=== PATIENT | male | born 1960 | race Caucasian/White ===

== ENCOUNTER 2017-02-04 10:36 | Emergency (ER) | payer OTHER ==
[~2017-02-04] VITALS: Ht 172.7 cm; Wt 102.1 kg
--- NOTE | 2017-02-04 11:09 | EKG ---
[facility] [address] [place] [address] Test Date: 2017-02-04 Test Time: 11:01:00 Pat Name: FAHAD ZEE Department: Room: Gender: M Supervisor General: : 1960 Requested By: SELWYN WAYNE Order Number: [id number] Reading MD: Paul Montez Measurements Intervals [place] Rate: 90 P: 7 IA: 180 QRS: -17 QRSD: 94 T: -2 QT: 364 QTc: 449 Interpretive Statements SINUS RHYTHM LEFTWARD AXIS CONSIDER LEFT VENTRICULAR HYPERTROPHY T ABNORMALITY IN INFERIOR LEADS RI6.01 Unconfirmed report No previous ECG available for comparison Electronically Signed On 02-09-2017 9:30:24 CDT by Paul Montez
[2017-02-04 11:57] LABS: BASO % 0 % (0-3); EOS % 1 % (0-3); HEMATOCRIT 43.2 % (39.0-53.0); HEMOGLOBIN 15.1 g/dL (13.0-17.5); LYMPH % 31 % (24-48); MEAN CORPUSCULAR HEMOGLOBIN 32 pg (25-35); MEAN CORPUSCULAR HGB CONC 35 g/dL (31-37); MEAN CORPUSCULAR VOLUME 93 fL (79-100); MONO % 10 % (0-9); NEUT % 58 % (31-73); PLATELET COUNT 165 x10^3/uL (140-400); RED BLOOD COUNT 4.66 x10^6/uL (4.30-5.70); RED CELL DISTRIBUTION WIDTH 14.1 % (11.5-14.5); WHITE BLOOD COUNT 6.6 x10^3/uL (4.0-11.0)
[2017-02-04 12:06] LABS: CALCIUM 9.1 mg/dL (8.5-10.1); CREATININE 0.8 mg/dL (0.7-1.3); GFR 100.7; POTASSIUM 3.9 mmol/L (3.5-5.1)
[2017-02-04 12:07] LABS: PROTHROMBIN TIME PATIENT 12.9 SEC (11.7-14.0)
[2017-02-04] MEDS ORDERED: CONTRAST GIVEN MC PRN (12:15)
[2017-02-04] MEDS ORDERED: IOHEXOL 350 MG/ML 100 ML VIAL. IV ONE (12:30)
--- NOTE | 2017-02-04 13:15 | RAD ---
Indication ascending thoracic aortic aneurysm. Axial contrast imaging through the chest, abdomen and pelvis was performed. 90 cc of Omnipaque 350 was administered. MIP images were generated and reviewed. Volume rendered images were also generated and reviewed. No prior CT imaging is available. The ascending thoracic aorta is dilated. It measures approximately 5.2 cm in greatest dimension. There is slight dilatation of the arch. It is dilated maximally to approximately 3 cm. The descending thoracic aorta is unremarkable. There is no evidence of dissection. No acute finding is seen associated with the thoracic aorta. The abdominal aorta appears unremarkable. There is no significant hilar or mediastinal adenopathy. There is no acute parenchymal infiltrate. There is a 3 mm nodule in the right middle lobe, image 60 series 3. An additional 2 mm nodule is also seen in the right middle lobe image 57. Follow-up imaging along the lines of the Fleischner criteria should be considered. The liver and spleen appear unremarkable and gallbladder appears grossly normal. No pancreatic adrenal or renal anomalies are seen. Acute finding in the abdomen is not apparent. No acute finding is seen in the pelvis. The bladder is mildly distended IMPRESSION: Dilatation of the ascending thoracic aorta maximally to approximately 5.2 cm. Mild dilatation, to approximately 3 cm, of the arch of the aorta. No acute finding seen in the chest, abdomen or pelvis Small pulmonary nodules in the right middle lobe. Follow-up imaging, along the lines of the Fleischner criteria, should be considered. Nodules detected incidentally at non-screening CT Nodule size (mm) less than or equal to 4 Low Risk patients- no follow-up needed High Risk patients- follow-up at 12 months and if no change, no further imaging needed. Nodule size > 4-6 mm Low risk patients- follow- up at 12 months and if no change, no further imaging needed High risk patients- initial follow-up CT at 6-12 months and then at 18-24 months if no change. Nodule Size > 6-8 mm Low risk patients- initial follow-up CT at 6-12 months and then at 18-24 months if no change. High risk patients- initial follow- up CT at 3-6 months and then at 9-12 months if no change, Nodule Size >8 mm Either low or high risk patients: Follow-up CT at around 3, 9 and 24 months Dynamic contrast enhanced CT, PET, and/or biopsy Note: newly detected indeterminate nodule in person 35 years of age or older. Low risk patients- minimal or absent history of smoking and/or other known risk factors. High risk patients- history of smoking or of other known risk factors. PQRS Compliance Statement: One or more of the following individualized dose reduction techniques were utilized for this examination: 1. Automated exposure control 2. Adjustment of the mA and/or kV according to patient size 3. Use of iterative reconstruction technique
[2017-02-04] MEDS ORDERED: LOSARTAN POTASSIUM 50 MG TABLET. PO ONE (13:45)
[2017-02-04] MEDS ORDERED: METOPROLOL TART IMMED RELEASE 50 MG TABLET. PO ONE (13:45)
[2017-02-04 14:00] VITALS: BP 141/100
[2017-02-04] MEDS ORDERED: METO-269 PO (14:03)
[2017-02-04] MEDS ORDERED: LOSA50TA6 PO (14:03)
--- NOTE | 2017-02-04 14:39 | ED.ADGEN ---
Past Medical History Past Medical History: No Pertinent History Past Surgical History: Other Additional Past Surgical Histo: LEFT KNEE TORN LIGAMENT Alcohol Use: None Drug Use: None Adult General Chief Complaint Chief Complaint: OTHER COMPLAINTS HPI HPI Patient is a 56 year old man, who sent to the emergency department for additional evaluation after an outpatient echo revealed concern for a 6.3 cm dilated ascending thoracic aortic aneurysm. Patient is denying any chest pain or other symptoms, states that he was told in 1985 that he had a small aneurysm that time, he has not followed up since that time. He states he does not have a primary doctor or see a doctor regularly. He states that he had a preemployment physical that led to a echo by Dr. Scott of cardiology, after a murmur was heard on examination. He states he has never experienced any chest pain, shortness breath, any nausea or vomiting, any weakness, numbness, tingling, GI upset or other concerning findings. No swelling extremities, he does not take any medications or any other known medical problems. Review of Systems Review of Systems Constitutional: Denies fever or chills. [] Eyes: Denies change in visual acuity. [] HENT: Denies nasal congestion or sore throat. [] Respiratory: Denies cough or shortness of breath. [] Cardiovascular: Denies chest pain or edema. [] GI: Denies abdominal pain, nausea, vomiting, bloody stools or diarrhea. [] : Denies dysuria. [] Musculoskeletal: Denies back pain or joint pain. [] Integument: Denies rash. [] Neurologic: Denies headache, focal weakness or sensory changes. [] Endocrine: Denies polyuria or polydipsia. [] Lymphatic: Denies swollen glands. [] Psychiatric: Denies depression or anxiety. [] Current Medications Current Medications Current Medications Medications (Trade) Dose Ordered Sig/Mary Start Time Stop Time Status Last Admin Dose Admin Info (Do NOT chart on this entry -- for MONITORING) 1 each PRN DAILY PRN 02/04/17 12:15 02/06/17 12:14 Iohexol (Omnipaque 350 Mg/ml) 90 ml 1X ONCE 02/04/17 12:30 02/04/17 12:31 DC 02/04/17 12:20 90 ML Losartan Potassium (Cozaar) 50 mg 1X ONCE 02/04/17 13:45 02/04/17 13:46 DC 02/04/17 13:55 50 MG Metoprolol Tartrate (Lopressor) 50 mg 1X ONCE 02/04/17 13:45 02/04/17 13:46 DC 02/04/17 13:54 50 MG Allergies Allergies Allergies Coded Allergies Type Severity Reaction Last Updated Verified No Known Drug Allergies 02/04/17 No Physical Exam Physical Exam Constitutional: Well developed, well nourished, no acute distress, non-toxic appearance. [] HENT: Normocephalic, atraumatic, bilateral external ears normal, oropharynx moist, no oral exudates, nose normal. [] Eyes: PERRLA, EOMI, conjunctiva normal, no discharge. [] Neck: Normal range of motion, no tenderness, supple, no stridor. [] Cardiovascular:Heart rate regular rhythm, patient with a 3-5 systolic murmur S1 , S2, no rubs or gallops. [] Lungs & Thorax: Bilateral breath sounds clear to auscultation , no wheezing, rhonchi, rales. No chest or crepitus or tenderness. No lesions. [] Abdomen: Bowel sounds normal, soft, no tenderness, no masses, no rebound, rigidity, no guarding, no pulsatile masses. [] Skin: Warm, dry, no erythema, no rash. [] Back: No tenderness, no CVA tenderness. [] Extremities: No tenderness, no cyanosis, no clubbing, ROM intact, no edema. Negative Homans sign. [] Neurologic: Alert and oriented X 3, normal motor function, normal sensory function, no focal deficits noted. [] Psychologic: Affect normal, judgement normal, mood normal. [] Current Patient Data Vital Signs Vital Signs Date Time Temp Pulse Resp B/P (MAP) Pulse Ox O2 Delivery O2 Flow Rate FiO2 02/04/17 13:55 79 141/100 02/04/17 12:42 24 95 Room Air 02/04/17 11:13 98.3 98.3 Lab Values Laboratory Tests Test 02/04/17 11:40 White Blood Count 6.6 x10^3/uL (4.0-11.0) Red Blood Count 4.66 x10^6/uL (4.30-5.70) Hemoglobin 15.1 g/dL (13.0-17.5) Hematocrit 43.2 % (39.0-53.0) Mean Corpuscular Volume 93 fL (79-100) Mean Corpuscular Hemoglobin 32 pg (25-35) Mean Corpuscular Hemoglobin Concent 35 g/dL (31-37) Red Cell Distribution Width 14.1 % (11.5-14.5) Platelet Count 165 x10^3/uL (140-400) Neutrophils (%) (Auto) 58 % (31-73) Lymphocytes (%) (Auto) 31 % (24-48) Monocytes (%) (Auto) 10 % (0-9) H Eosinophils (%) (Auto) 1 % (0-3) Basophils (%) (Auto) 0 % (0-3) Neutrophils # (Auto) 3.8 x10^3uL (1.8-7.7) Lymphocytes # (Auto) 2.0 x10^3/uL (1.0-4.8) Monocytes # (Auto) 0.7 x10^3/uL (0.0-1.1) Eosinophils # (Auto) 0.1 x10^3/uL (0.0-0.7) Basophils # (Auto) 0.0 x10^3/uL (0.0-0.2) Prothrombin Time 12.9 SEC (11.7-14.0) Prothrombin Time INR 1.0 (0.8-1.1) PTT 25 SEC (24-38) Sodium Level 141 mmol/L (136-145) Potassium Level 3.9 mmol/L (3.5-5.1) Chloride Level 107 mmol/L (98-107) Carbon Dioxide Level 23 mmol/L (21-32) Anion Gap 11 (6-14) Blood Urea Nitrogen 16 mg/dL (8-26) Creatinine 0.8 mg/dL (0.7-1.3) Estimated GFR (Cockcroft-Gault) 100.7 Glucose Level 101 mg/dL (70-99) H Calcium Level 9.1 mg/dL (8.5-10.1) Troponin I Quantitative < 0.017 ng/mL (0.000-0.055) ML-Riz-R-Type Natriuretic Peptide 27 pg/mL (0-124) Laboratory Tests 02/04/17 11:40 Laboratory Tests 02/04/17 11:40 EKG EKG EC: Sinus rhythm, heart rate 90 beats minute, left axis deviation with left ventricular hypertrophy noted, QTc of 449, OH 180, QRS of 94, no ST elevations or depressions, aside from left axis deviation, no other abnormalities identified. As interpreted by me. Reviewed in the ED by Dr. Diaz of cardiology. Radiology/Procedures Radiology/Procedures [][facility] [address] [place] [address] IMAGING REPORT Signed PATIENT: FAHAD ZEE ACCOUNT: [id number] : 1960 LOCATION: ER AGE: 56 SEX: M EXAM STATUS: REG ER ORD. PHYSICIAN: SELWYN WAYNE DO REASON: ascending aortic aneurysm PROCEDURE: CT ANGIO CHEST ABD PELVIS Indication ascending thoracic aortic aneurysm. Axial contrast imaging through the chest, abdomen and pelvis was performed. 90 cc of Omnipaque 350 was administered. MIP images were generated and reviewed. Volume rendered images were also generated and reviewed. No prior CT imaging is available. The ascending thoracic aorta is dilated. It measures approximately 5.2 cm in greatest dimension. There is slight dilatation of the arch. It is dilated maximally to approximately 3 cm. The descending thoracic aorta is unremarkable. There is no evidence of dissection. No acute finding is seen associated with the thoracic aorta. The abdominal aorta appears unremarkable. There is no significant hilar or mediastinal adenopathy. There is no acute parenchymal infiltrate. There is a 3 mm nodule in the right middle lobe, image 60 series 3. An additional 2 mm nodule is also seen in the right middle lobe image 57. Follow-up imaging along the lines of the Fleischner criteria should be considered. The liver and spleen appear unremarkable and gallbladder appears grossly normal. No pancreatic adrenal or renal anomalies are seen. Acute finding in the abdomen is not apparent. No acute finding is seen in the pelvis. The bladder is mildly distended IMPRESSION: Dilatation of the ascending thoracic aorta maximally to approximately 5.2 cm. Mild dilatation, to approximately 3 cm, of the arch of the aorta. No acute finding seen in the chest, abdomen or pelvis Small pulmonary nodules in the right middle lobe. Follow-up imaging, along the lines of the Fleischner criteria, should be considered. Nodules detected incidentally at non-screening CT Nodule size (mm) less than or equal to 4 Low Risk patients- no follow-up needed High Risk patients- follow-up at 12 months and if no change, no further imaging needed. Nodule size > 4-6 mm Low risk patients- follow- up at 12 months and if no change, no further imaging needed High risk patients- initial follow-up CT at 6-12 months and then at 18-24 months if no change. Nodule Size > 6-8 mm Low risk patients- initial follow-up CT at 6-12 months and then at 18-24 months if no change. High risk patients- initial follow- up CT at 3-6 months and then at 9-12 months if no change, Nodule Size >8 mm Either low or high risk patients: Follow-up CT at around 3, 9 and 24 months Dynamic contrast [address], PET, and/or biopsy Note: newly detected indeterminate nodule in person 35 years of age or older. Low risk patients- minimal or absent history of smoking and/or other known risk factors. High risk patients- history of smoking or of other known risk factors. PQRS Compliance Statement: One or more of the following individualized dose reduction techniques were utilized for this examination: 1. Automated exposure control 2. Adjustment of the mA and/or kV according to patient size 3. Use of iterative reconstruction technique Course & Med Decision Making Course & Med Decision Making Pertinent Labs and Imaging studies reviewed. (See chart for details) Patient is agreeable to receiving laboratory studies and imaging in the emergency department as discussed with Dr. Diaz of cardiology, who is covering for Dr. Scott today. Patient is resting comfortably in the emergency department without any complaints. CT angiogram the chest abdomen and pelvis obtained, reveals evidence of a 5.2 maximal he dilated thoracic aortic ascending aneurysm, and a 3 cm dilatation of the arch of the aorta. No other concerning findings identified. Dr. Diaz did evaluate speak to the patient in the emergency department regarding findings and importance of follow-up and close blood pressure control. Patient was noted to have elevated pressure, 150s over 90s but arrived in the emergency department, which did fluctuate in the emergency department, down to 130s over 80s, however due to his aortic findings , close blood pressure control is important as this was discussed with patient at bedside. Patient was initiated on metoprolol 50 and losartan 50 in the emergency department, also given a prescription for these medications, to be taken once daily, patient voiced understanding and agreement with these instructions, first dose of medication given without issue. Patient discharged home with prescriptions for metoprolol XL and losartan, instructed to follow-up with Dr. Scott next week, and to contact Dr. Diaz with any questions in the meantime. Patient discharged home in stable condition with plan as above. Dragon Disclaimer Dragon Disclaimer This electronic medical record was generated, in whole or in part, using a voice recognition dictation system. Departure Impression: Primary Impression: Hypertension Additional Impression: Aortic aneurysm without rupture Disposition: HOME, SELF-CARE Condition: STABLE Scripts Losartan Potassium (LOSARTAN POTASSIUM) 50 Mg Tablet 50 MG PO DAILY, #30 TAB Prov: SELWYN WAYNE DO 02/04/17 Metoprolol Succinate (TOPROL XL) 50 Mg Tab.er.24h 1 TAB PO DAILY, #30 TAB 0 Refills Prov: SELWYN WAYNE DO 02/04/17 Problem Qualifiers SELWYN WAYNE DO Feb 04, 2017 14:39
--- NOTE | 2017-02-04 22:24 | PDOC ---
Provider Note Provider Note Covering for Dr. Scott. I was called by the residential air sealing technician to inform me that the patient has an enlarged ascending aorta. The proximal part of the ascending aorta measured 5.3 cm. The field map technician had tried to go up further and thought that the ascending aorta at that point measured 6.2 cm. At that point it was not clear as to whether we were measuring the aorta or no. The patient was totally asymptomatic. Dr. Scott had requested an echocardiogram because a preemployment chest x- ray was abnormal. He complained of no chest pain or back pain. There was a soft systolic murmur at the base. Because we could not be sure as to whether the ascending aorta was truly enlarged to 6.2 cm he was sent to the emergency room. This was for the purpose of obtaining his labs and getting a stat CT of the chest. The CT chest showed that the largest to diameter was 5.2 cm. I saw the patient in the emergency room. He was informed that any ascending aortic aneurysm of 5 cm of greater should be considered for surgical replacement. His was 5.2 cm. He was told that since he is asymptomatic he could go home and contact Dr. Scott as soon as he comes back. He was advised not to do anything strenuousand not to return to work He was advised to return to the emergency room immediately if he should have chest pain or back pain. He was given prescriptions for losartan 50 mg a day and Toprol-XL 50 mg a day by Dr. Zavaleta at my suggestion. He was given my name and phone number and I could be contacted with any questions until Dr. Scott returns on 02/08. NEIL GOMEZ MD Feb 04, 2017 22:24
== END 2017-02-04 14:28 | disposition home or self-care (01) ==
LOC: ER 10:36
DX: I10 Essential (primary) hypertension (principal); I71.2 Thoracic aortic aneurysm, without rupture
CPT/HCPCS: 36415; 71275; 74174; 80048; 83880; 84484; 85027; 85610; 85730; 93005; 99285; Q9967

== ENCOUNTER → 2017-02-04 | Outpatient (CLI) | payer OTHER ==
[~2017-02-04] MED LIST: LOSA50TA6 PO; METO-269 PO
--- NOTE | 2017-02-07 19:46 | CARD ---
APPROVED REPORT EXAM: Two-dimensional and M-mode echocardiogram with Doppler and color Doppler. Other Information Quality : Good INDICATION Murmur Enlarged Ascending Aorta 2D DIMENSIONS RVDd2.8 (2.9-3.5cm)Left Atrium(2D)4.2 (1.6-4.0cm) IVSd1.0 (0.7-1.1cm)Aortic Root(2D)4.0 (2.0-3.7cm) LVDd5.4 (3.9-5.9cm)LVOT Diameter2.2 (1.8-2.4cm) PWd1.0 (0.7-1.1cm)LVDs4.3 (2.5-4.0cm) FS (%) 25.0 %SV59.2 ml LVEF(%)50.0 (>50%) Aortic Valve AoV Peak Austin.129.6cm/sAoV VTI22.9cm AO Peak GR.6.7mmHgLVOT Peak Austin.92.5cm/s LVOT VTI 18.57cmAO Mean GR.4mmHg RONALD (VMAX)2.99gj4CPW (VTI)3.22cm2 Mitral Valve MV E Frwepstl05.7cm/sMV DECEL [id number] MV A Jedrrxtm14.0cm/sMV LDT64ra E/A Ratio0.9MVA (PHT)4.01cm2 TDI E/Lateral E'13.0E/Medial E'11.7 Tricuspid Valve TR P. Fhtiseln975av/sRAP XHODHNTT1grMo TR Peak Gr.93pnBmDTYT53beIp Pulmonary Vein S1 Nvlhcmem30.9cm/sD2 Ygcrkvvc13.3cm/s PVa [id number] LEFT VENTRICLE The left ventricle is normal size. There is normal left ventricular wall thickness. Left ventricle sy stolic function is low normal. The Ejection Fraction is 50-55%. There is normal LV segmental wall mot ion. Transmitral Doppler flow pattern is Grade I-abnormal relaxation pattern. RIGHT VENTRICLE The right ventricle is normal size. The right ventricular systolic function is normal. ATRIA The left atrium is mildly dilated. The right atrium size is normal. The interatrial septum is intact with no evidence for an atrial septal defect or patent foramen ovale as noted on 2-D or Doppler imagi ng. AORTIC VALVE The aortic valve is not well visualized but appears to be bicuspid Doppler and Color Flow revealed tr krystal aortic regurgitation. There is no significant aortic valvular stenosis. MITRAL VALVE The mitral valve is normal in structure and function. There is no evidence of mitral valve prolapse. There is no mitral valve stenosis. Doppler and Color-flow revealed trace mitral regurgitation. TRICUSPID VALVE The tricuspid valve is normal in structure and function. Doppler and Color Flow revealed physiologica l tricuspid regurgitation. The PA pressure was estimated at 24 mmHg. There is no tricuspid valve sten osis. PULMONIC VALVE The pulmonary valve is normal in structure and function. Doppler and Color Flow revealed no pulmonic valvular regurgitation. There is no pulmonic valvular stenosis. GREAT VESSELS The aortic root is mildly at 4.2 cm. The ascending aorta is severely dilated at 5.2 cm. The IVC is no rmal in size and collapses >50% with inspiration. PERICARDIAL EFFUSION There is no evidence of significant pericardial effusion. Critical Notification Critical Value: No <Conclusion> The left ventricle is normal size. There is normal left ventricular wall thickness. Left ventricle systolic function is low normal. The Ejection Fraction is 50-55%. Transmitral Doppler flow pattern is Grade I-abnormal relaxation pattern. There is no evidence of significant pericardial effusion. There is no mitral valve stenosis. Doppler and Color-flow revealed trace mitral regurgitation. The left atrium is of a normal size The aortic valve is not well visualized but appears to be bicuspid There is no significant aortic valvular stenosis. Doppler and Color Flow revealed trace aortic regurgitation. The aortic root is mildly at 4.2 cm. The ascending aorta is severely dilated at 5.2 cm. The right ventricle is of a normal size Doppler and Color Flow revealed physiological tricuspid regurgitation. The PA pressure was estimated at 24 mmHg. The pulmonic valve is normal
== END | disposition home or self-care (01) ==
LOC: ECHO 08:30
PROVIDERS: ATTEND Internal Medicine Cardiovascular Disease
DX: I08.3 Combined rheumatic disorders of mitral, aortic and tricuspid valves (principal); I77.89 Other specified disorders of arteries and arterioles; R01.1 Cardiac murmur, unspecified
CPT/HCPCS: 93306

== ENCOUNTER 2017-03-03 12:05 | Observation (INO) | payer OTHER ==
[~2017-03-03] VITALS: Ht 172.7 cm; Wt 101.6 kg
[2017-03-03 12:32] LABS: HEMATOCRIT 44.8 % (39.0-53.0); HEMOGLOBIN 15.2 g/dL (13.0-17.5); RED BLOOD COUNT 4.76 x10^6/uL (4.30-5.70); RED CELL DISTRIBUTION WIDTH 13.6 % (11.5-14.5); WHITE BLOOD COUNT 7.3 x10^3/uL (4.0-11.0)
[2017-03-03 12:43] LABS: INR 1.1 (0.8-1.1); PROTHROMBIN TIME PATIENT 13.6 SEC (11.7-14.0)
[2017-03-03] MEDS ORDERED: LIDOCAINE 2% 20 ML VIAL. ONE (12:43)
[2017-03-03 12:47] LABS: CALCIUM 9.5 mg/dL (8.5-10.1); CREATININE 0.9 mg/dL (0.7-1.3); GFR 87.9
[2017-03-03 12:50] VITALS: BP 114/83
[2017-03-03] MEDS ORDERED: IV RINGERS,LACTATED 1000ML 1,000 ML IV SCH (13:00)
--- NOTE | 2017-03-03 13:03 | PDOC ---
MODERATE SEDATION ASSESSMENT RISKS/ALTERNATIVES Risks/Alternatives Risks and alternatives of this type of sedation and procedure discussed with: RISK/ALTERNATIVES: Patient H & P ON CHART H & P H & P on chart and reviewed for co-morbid conditions and appropriate labs. H&P ON CHART: Yes STATUS PREG STATUS ASSESSED: Yes MEDS/ALLERGIES REVIEWED Meds/Allergies Reviewed Medications and Allergies including time and route of recently administered narcotics and sedatives. MEDS/ALLERGIES REVIEWED: Yes ASA RATING ASA RATING: I AIRWAY ASSESSMENT Airway Assessment Airway patency, oral function limitations, presence of caps, crowns, dentures, partials, and ability to extend neck assessed. AIRWAY ASSESSMENT: Yes MALLAMPATI SCORE MALLAMPATI SCORE: II PRE-SEDATION ASSESSMENT PRE-SEDATION ASSESSMENT: Yes FAUTSINO PARK MD Mar 03, 2017 13:03
[2017-03-03] MEDS ORDERED: METO25TA4 PO (13:04)
[2017-03-03] MEDS ORDERED: MORPHINE SULFATE 2 MG/ML DISP.SYRIN. IV PRN (13:15)
[2017-03-03] MEDS ORDERED: LIDOCAINE 1% 1 ML SYRINGE. ID PRN (13:15)
[2017-03-03] MEDS ORDERED: ONDANSETRON PF 4 MG/2 ML VIAL. IV PRN (13:15)
[2017-03-03] MEDS ORDERED: HYDROmorphone 2 MG/ML VIAL IV PRN (13:15)
[2017-03-03] MEDS ORDERED: PROCHLORPERAZINE 10 MG/2 ML VIAL. IV PRN (13:15)
[2017-03-03] MEDS ORDERED: fentaNYL PF VIAL 100 MCG/2 ML VIAL IV PRN ×2 (13:15)
[2017-03-03] MEDS ORDERED: IODIXANOL 320 MG/ML 100 ML VIAL. ONE (13:21)
[2017-03-03] MEDS ORDERED: MIDAZOLAM HCL/PF 5 MG/5 ML VIAL. ONE (13:23)
[2017-03-03] MEDS ORDERED: fentaNYL PF VIAL 250 MCG/5 ML VIAL ONE (13:23)
[2017-03-03] MEDS ORDERED: LIDOCAINE 2% TOPICAL JELLY 30GM TUBE. TP ONE (13:24)
[2017-03-03] MEDS ORDERED: BENZOCAINE ONE 20% MUCOSAL SPRAY. (13:24)
[2017-03-03] MEDS ORDERED: LIDOCAINE 2% VISCOUS 15 ML SOLUTION. ONE (13:24)
[2017-03-03] MEDS ORDERED: fentaNYL PF VIAL 250 MCG/5 ML VIAL IV ONE (14:00)
[2017-03-03] MEDS ORDERED: MIDAZOLAM HCL/PF 5 MG/5 ML VIAL. IV ONE (14:00)
[2017-03-03] MEDS ORDERED: IODIXANOL 320 MG/ML 100 ML VIAL. IART ONE (14:00)
[2017-03-03] MEDS ORDERED: LIDOCAINE 2% 20 ML VIAL. IJ ONE (14:00)
[2017-03-03 15:08] VITALS: BP 111/64
--- NOTE | 2017-03-03 16:08 | CARD ---
APPROVED REPORT EXAM: Transesophageal echocardiogram with color flow Doppler. INDICATION Aortic Valve Disease Ascending aortic aneurysm PROCEDURE After obtaining informed consent, patient underwent transesophageal echo in the [facility]. Type of Sedation : Conscious Sedation Sedation was administered by MUSTAPHA Edwards. Transesophageal probe was inserted and advanced into esophagus by Zheng Scott MD. The LYNN was performed without complications. Throughout the procedure, the blood pressure, pulse oximetry, cardiac rhythm, and rate were monitored . The patient tolerated the procedure without adverse effects. Recovery from conscious sedation was une ventful and vital signs were stable. LEFT VENTRICLE The left ventricle is normal size. There is normal left ventricular wall thickness. Left ventricle sy stolic function is normal. The Ejection Fraction is 50-55%. There is normal LV segmental wall motion. RIGHT VENTRICLE The right ventricle is normal size. The right ventricular systolic function is normal. ATRIA The left atrium is mildly dilated. The right atrium size is normal. The interatrial septum is intact with no evidence for an atrial septal defect or patent foramen ovale as noted on 2-D or Doppler imagi ng. AORTIC VALVE The aortic valve is bicuspid. Doppler and Color Flow revealed no significant aortic regurgitation. Th ere is a trace of aortic insufficiency at one corner that may be from the point of the juncture of th e bicuspid valve leaflets MITRAL VALVE The mitral valve is normal in structure There is no evidence of mitral valve prolapse. There is no mi tral valve stenosis. Doppler and Color Flow revealed trace mitral regurgitation. TRICUSPID VALVE The tricuspid valve is normal in structure and function. Doppler and Color Flow revealed no tricuspid valve regurgitation noted. PULMONIC VALVE The pulmonary valve is normal in structure and function. Doppler and Color Flow revealed no pulmonic valvular regurgitation. GREAT VESSELS The aortic root is did and then it immediately dilates into an aneurysm just above the valve The asce nding aorta is dilated and it measured 5 cm. It tapers down to a normal size just distal to the innom inate artery. No flap of dissection and no thrombus was seen PERICARDIAL EFFUSION There is no evidence of significant pericardial effusion. Critical Notification Critical Value: No <Conclusion> Left ventricle systolic function is normal. The Ejection Fraction is 50-55%. The right ventricle is normal size. The left atrium is mildly dilated. The right atrium size is normal. Doppler and Color Flow revealed no significant aortic regurgitation. There is a trace of aortic insuf ficiency at one corner that may be from the point of the juncture of the bicuspid valve leaflets Doppler and Color Flow revealed trace mitral regurgitation. The tricuspid valve is normal in structure and function. The pulmonary valve is normal in structure and function. The aortic root is did and then it immediately dilates into an aneurysm just above the valve The ascending aorta is dilated and it measured 5 cm. It tapers down to a normal size just distal to the innominate artery. No flap of dissection and no thrombus was seen
--- NOTE | 2017-03-03 16:23 | CARD ---
APPROVED REPORT Procedure(s) performed: Left heart catheterization with an ascending aortogram HISTORY The patient is a 56 year-old male with a history of : She was found to have an ascending aortic aneur ysm and is coming in to be evaluated with a LYNN and a left heart catheterization with an ascending ao rtogram. CASE TECHNIQUE The patient was brought electively into the cardiac catheterization lab. A timeout was performed conf irming the patient's name, date of , procedure, and site of procedure. All necessary parties wer e wearing the appropriate personal protective equipment and radiation monitoring devices. After expla ining the risks and benefits of the procedure, informed consent was obtained.(See nursing notes for m edications administered). The right groin was sterilely prepped and draped. The right femoral groin w as infiltrated with 2% Lidocaine subcutaneous anesthesia. During this case, Fluoroscopy and low osmol ar contrast were used for imaging. A sheath was inserted into the right femoral artery without diffic ulty. Coronary angiography was performed using coronary diagnostic catheters. The left coronary syste m was accessed and visualized with a Diagnostic catheter. The right coronary system was accessed and visualized with a Diagnostic catheter. An aortogram of the ascending aorta was performed. Pre-demploy ment femoral angiogram was performed . Closure device was deployed with a Angioseal without any compl ications. The patient tolerated the procedure well and there were no complications associated with th e procedure. Coronary Angiography The patient's coronary anatomy is right dominant. The left main coronary artery is a medium size vessel without stenosis. The left main trifurcates to the left anterior descending, circumflex, and ramus. The left anterior descending artery is a medium size vessel with intimal irregularities. The first di agonal branch is a small size vessel with intimal irregularities and without significant stenosis. Th e second diagonal branch is a small size vessel with intimal irregularities and without significant s tenosis. The third diagonal branch is a small size vessel with intimal irregularities and without sig nificant stenosis. The circumflex artery is a small size vessel with intimal irregularities and without significant sten osis. The first obtuse marginal branch is a small size vessel with intimal irregularities and without significant stenosis. The second obtuse marginal branch is a small size vessel with intimal irregula rities and without significant stenosis. The ramus intermedius artery is a small size vessel with intimal irregularities and without significa nt stenosis. The right coronary artery is a large size vessel without stenosis. The right posterior descending art radha is a medium size vessel free of disease. The right posterolateral branch is a medium size vessel free of disease. Aorta The ascending aortogram shows a severely dilated ascending aorta that narrows down immediately beyond the takeoff of the innominate artery. The aortic valve appears to be a bicuspid valve. 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 No significant coronary artery disease was seen
== END 2017-03-03 18:03 | disposition home or self-care (01) ==
LOC: CCL 12:05 → 2 SOUTH 13:52
PROVIDERS: ADMIT Internal Medicine Cardiovascular Disease; ATTEND Internal Medicine Cardiovascular Disease
DX: I71.2 Thoracic aortic aneurysm, without rupture (principal); Q23.1 Congenital insufficiency of aortic valve; Q24.9 Congenital malformation of heart, unspecified; I35.8 Other nonrheumatic aortic valve disorders
CPT/HCPCS: 36415; 76376; 80048; 85027; 85610; 85730; 93312; 93325; 93454; 93567; C1769; C1771; C1892; G0269; G0378; G0379; J2250; J3010; 99152; 99153

== ENCOUNTER → 2017-03-15 | Outpatient (CLI) | payer OTHER ==
[2017-03-03 15:08] VITALS: BP 111/64
[~2017-03-15] MED LIST changes: +GLUC1CAP13 PO; +METO25TA4 PO; +MULT-208 PO
== END ==
LOC: SURGPAT 13:15
PROVIDERS: ATTEND Thoracic Surgery (Cardiothoracic Vascular Surgery)
DX: Z01.812 Encounter for preprocedural laboratory examination (principal)
CPT/HCPCS: 87641

== ENCOUNTER 2017-03-22 05:56 | Inpatient (IN) | payer OTHER ==
[2017-03-22] VITALS (16 sets, daily range): BP systolic 81–119; BP diastolic 48–62
[~2017-03-22] VITALS: Ht 172.7 cm; Wt 101.8 kg
[2017-03-22] MEDS ORDERED: POTASSIUM CHLORIDE 70 MEQ, SODIUM BICARBONATE VIAL 12.5 MEQ, LIDOCAINE 2% 24 ML in IV E... IRR ONE (06:00)
[2017-03-22] MEDS ORDERED: METOPROLOL TART IMMED RELEASE 25 MG TABLET. PO ONE (06:00)
[2017-03-22] MEDS ORDERED: POTASSIUM CHLORIDE 15 MEQ, SODIUM BICARBONATE VIAL 12.5 MEQ in IV ELECTROLYTE-S (PH 7.4... IRR ONE (06:00)
[2017-03-22] MEDS ORDERED: PROCHLORPERAZINE 10 MG/2 ML VIAL. IV PRN (07:00)
[2017-03-22] MEDS ORDERED: MORPHINE SULFATE 2 MG/ML DISP.SYRIN. IV PRN (07:00)
[2017-03-22] MEDS ORDERED: LIDOCAINE 1% 1 ML SYRINGE. ID PRN (07:00)
[2017-03-22] MEDS ORDERED: IV RINGERS,LACTATED 1000ML 1,000 ML IV SCH (07:00)
[2017-03-22] MEDS ORDERED: ONDANSETRON PF 4 MG/2 ML VIAL. IV PRN (07:00)
[2017-03-22] MEDS ORDERED: HYDROmorphone 2 MG/ML VIAL IV PRN (07:00)
[2017-03-22] MEDS ORDERED: fentaNYL PF VIAL 100 MCG/2 ML VIAL IV PRN ×2 (07:00)
[2017-03-22] MEDS ORDERED: MINERAL OIL 10 ML VIAL MC ONE (07:04)
[2017-03-22] MEDS ORDERED: SURGICEL NU-KNIT 3X4. ONE (07:04)
[2017-03-22] MEDS ORDERED: THROMBIN TOPICAL 20,000 UNIT SPRAY.SYRN KIT TP ONE (07:04)
[2017-03-22] MEDS ORDERED: GELATIN SPONGE SIZE 100. ONE (07:04)
[2017-03-22] MEDS ORDERED: SURGICEL HEMOSTAT 4X8 EACH. ONE (07:05)
[2017-03-22] MEDS ORDERED: MIDAZOLAM HCL/PF 2 MG/2 ML VIAL. ONE (07:09)
[2017-03-22] MEDS ORDERED: ROCURONIUM 100 MG/10 ML VIAL. ONE ×2 (07:09→08:48)
[2017-03-22] MEDS ORDERED: SUFentanil 100 MCG/2 ML AMPUL. ONE (07:09)
[2017-03-22] MEDS ORDERED: HEPARIN for IV BOLUS 10,000 UNIT/10 ML VIAL. ONE ×4 (07:10→07:11)
[2017-03-22] MEDS ORDERED: AMINOCAPROIC ACID 5,000 MG/20 ML VIAL. IV ONE ×4 (07:10→12:08)
[2017-03-22] MEDS ORDERED: NITROGLYCERIN PREMIX 250 ML IV ONE (07:10)
[2017-03-22] MEDS ORDERED: ISOFLURANE > 120 MINUTES. IH ONE (07:11)
[2017-03-22] MEDS ORDERED: DEXAMETHASONE SOD PHOS 20 MG/5 ML VIAL. ONE (07:11)
[2017-03-22] MEDS ORDERED: ETOMIDATE 20 MG/10 ML VIAL. IV ONE (07:11)
[2017-03-22] MEDS ORDERED: ePHEDrine PF IN SALINE 50 MG/5 ML DISP.SYRIN IV ONE (07:28)
[2017-03-22] MEDS ORDERED: fentaNYL PF VIAL 100 MCG/2 ML VIAL ONE (07:41)
[2017-03-22] MEDS ORDERED: PROPOFOL 50 ML IV ONE (09:07)
[2017-03-22] MEDS ORDERED: PROTAMINE 50 MG/5 ML VIAL. IV ONE ×8 (09:17→09:50)
[2017-03-22] MEDS ORDERED: LIDOCAINE 2% PF Vial for OR 5 ML VIAL. ONE ×3 (11:33→12:08)
[2017-03-22] MEDS ORDERED: ALBUMIN HUMAN 5% 500 ML IV ONE (11:59)
[2017-03-22] MEDS ORDERED: CLEVIDIPINE BUTYRATE 100 ML IV PRN (12:00)
[2017-03-22] MEDS ORDERED: MANNITOL 25% 12.5 G/50 ML VIAL FOR OR. ONE (12:08)
[2017-03-22] MEDS ORDERED: ALBUMIN HUMAN 25% 100 ML IV ONE (12:08)
[2017-03-22] MEDS ORDERED: CALCIUM CHLORIDE 1,000 MG/10 ML DISP.SYRIN IV ONE (12:08)
[2017-03-22 12:17] LABS: HEMATOCRIT 31.4 % (39.0-53.0); HEMOGLOBIN 10.7 g/dL (13.0-17.5); WHITE BLOOD COUNT 11.2 x10^3/uL (4.0-11.0)
[2017-03-22 12:29] LABS: INR 1.5 (0.8-1.1)
[2017-03-22] MEDS ORDERED: BISACODYL 10 MG SUPP.RECT. PR PRN (12:30)
[2017-03-22] MEDS ORDERED: ELECTROLYTE (ICU) PROTOCOL. MC PRN (12:30)
[2017-03-22] MEDS ORDERED: 0.9 % SODIUM CHLORIDE 10 ML DISP.SYRIN. IV PRN (12:30)
[2017-03-22] MEDS ORDERED: KCL PER PROTOCOL MC PRN (12:30)
[2017-03-22] MEDS ORDERED: ALBUTEROL SULFATE 2.5 MG/3 ML NEBU. NEB PRN (12:30)
[2017-03-22] MEDS ORDERED: ACETAMINOPHEN 325 MG TABLET. PO PRN (12:30)
[2017-03-22] MEDS ORDERED: DEXTROSE 50% 25 GM / 50ML DISP.SYRIN. IV PRN (12:30)
[2017-03-22] MEDS ORDERED: INSULIN REGULAR VIAL 150 UNIT in 0.9 % SODIUM CHLORIDE 150ML 150 ML IV PRN (12:30)
[2017-03-22] MEDS ORDERED: MAGNESIUM SULFATE 1GM 100 ML IV PRN (12:30)
[2017-03-22] MEDS ORDERED: MEPERIDINE PF 25 MG/ML VIAL. IV PRN (12:30)
[2017-03-22] MEDS ORDERED: ACETAMINOPHEN 650 MG SUPP.RECT. PR PRN (12:30)
[2017-03-22 12:40] LABS: PROTHROMBIN TIME PATIENT 16.9 SEC (11.7-14.0)
--- NOTE | 2017-03-22 13:16 | PDOC ---
BRIEF OPERATIVE NOTE Date: Mar 22, 2017 Pre-Op Diagnosis Aortic Root Aneurysm Bicuspid Aortic Valve Post-Op Diagnosis Same Procedure Performed Aortic root replacement with 29 mm Mechanical Valved-Conduit, utilizing Bental Technique Left femoral artery exploration Surgeon Vanesa Guerra MD [employer] Gustavo Chang MD Anesthesiologist [email or web address] Anesthesia Type: General Blood Loss see perfusion record IV Fluid see anesthesia record Urine Output appropriate Specimens Obtained Ascending Aorta Aortic Valve leaflets Findings Bicuspid aortic valve Aortic root aneurysm, tapering to normal in the distal ascending aorta Complications none noted SIMIN GUERRA MD Mar 22, 2017 13:16
--- NOTE | 2017-03-22 13:24 | RAD ---
INDICATION: P CXR IN OR, POST CABG. COMPARISON: 02/04/2017 FINDINGS: Single view of chest obtained. Endotracheal tube near the thoracic inlet. [place] catheter likely at main pulmonary artery. Poststernotomy changes with drains. Enteric tube with tip in left upper quadrant of abdomen. Cardiac silhouette is prominent in size. Hypoexpanded examination of the lungs. The left lung base is obscured. Mild interstitial prominence IMPRESSION: Postoperative appearance of the chest with lines and tubes as above. Hypoexpanded exam of the lungs with mild interstitial prominence. Could be secondary to vascular crowding from hypoexpansion but mild edema is possible.
[2017-03-22 13:32] LABS: ART BE ISTAT -1 mmol/L (0-3); ART GLUC ISTAT 105 mg/dL (70-99); ART HCO3 ISTAT 23 mmol/L (21-28); ART HCT ISTAT 29 % (37-52); ART HGB ISTAT 9.9 g/dL (14-18); ART K ISTAT 5.4 mmol/L (3.5-5.0); ART NA ISTAT 137 mmol/L (135-145); ART PCO2 ISTAT 33 mmHg (35-45); ART PH ISTAT 7.44 (7.35-7.45); ART PO2 ISTAT 332 mmHg (75-100); ART SAT O2 SAT 100 % (95-99); ART TCO2 ISTAT 24 mmol/L (21-32); TOSPEC ART
[2017-03-22 13:32] LABS: ART BE ISTAT 1 mmol/L (0-3); ART GLUC ISTAT 166 mg/dL (70-99); ART HCO3 ISTAT 25 mmol/L (21-28); ART HCT ISTAT 32 % (37-52); ART HGB ISTAT 10.9 g/dL (14-18); ART ION CA ISTAT 1.12 mmol/L (1.13-1.32); ART NA ISTAT 139 mmol/L (135-145); ART PCO2 ISTAT 41 mmHg (35-45); ART PO2 ISTAT 250 mmHg (75-100); ART SAT O2 SAT 100 % (95-99); ART TCO2 ISTAT 27 mmol/L (21-32); TOSPEC ART
[2017-03-22 13:32] LABS: ART BE ISTAT -1 mmol/L (0-3); ART GLUC ISTAT 99 mg/dL (70-99); ART HCO3 ISTAT 24 mmol/L (21-28); ART HCT ISTAT 37 % (37-52); ART HGB ISTAT 12.6 g/dL (14-18); ART ION CA ISTAT 1.19 mmol/L (1.13-1.32); ART K ISTAT 3.9 mmol/L (3.5-5.0); ART NA ISTAT 141 mmol/L (135-145); ART PCO2 ISTAT 36 mmHg (35-45); ART PH ISTAT 7.42 (7.35-7.45); ART PO2 ISTAT 240 mmHg (75-100); ART SAT O2 SAT 100 % (95-99); ART TCO2 ISTAT 25 mmol/L (21-32); TOSPEC ART
[2017-03-22 13:32] LABS: ART BE ISTAT 0 mmol/L (0-3); ART GLUC ISTAT 156 mg/dL (70-99); ART HCO3 ISTAT 25 mmol/L (21-28); ART HCT ISTAT 33 % (37-52); ART HGB ISTAT 11.2 g/dL (14-18); ART ION CA ISTAT 1.13 mmol/L (1.13-1.32); ART K ISTAT 5.1 mmol/L (3.5-5.0); ART NA ISTAT 140 mmol/L (135-145); ART PCO2 ISTAT 41 mmHg (35-45); ART PH ISTAT 7.39 (7.35-7.45); ART PO2 ISTAT 237 mmHg (75-100); ART SAT O2 SAT 100 % (95-99); ART TCO2 ISTAT 26 mmol/L (21-32); TOSPEC ART
[2017-03-22 13:32] LABS: ART BE ISTAT 0 mmol/L (0-3); ART GLUC ISTAT 140 mg/dL (70-99); ART HCO3 ISTAT 24 mmol/L (21-28); ART HCT ISTAT 33 % (37-52); ART HGB ISTAT 11.2 g/dL (14-18); ART ION CA ISTAT 1.12 mmol/L (1.13-1.32); ART K ISTAT 4.8 mmol/L (3.5-5.0); ART NA ISTAT 139 mmol/L (135-145); ART PCO2 ISTAT 40 mmHg (35-45); ART PO2 ISTAT 254 mmHg (75-100); ART SAT O2 SAT 100 % (95-99); ART TCO2 ISTAT 26 mmol/L (21-32); TOSPEC ART
[2017-03-22 13:33] LABS: ART BE ISTAT -2 mmol/L (0-3); ART GLUC ISTAT 134 mg/dL (70-99); ART HCO3 ISTAT 23 mmol/L (21-28); ART HCT ISTAT 33 % (37-52); ART HGB ISTAT 11.2 g/dL (14-18); ART ION CA ISTAT 1.65 mmol/L (1.13-1.32); ART K ISTAT 3.9 mmol/L (3.5-5.0); ART NA ISTAT 140 mmol/L (135-145); ART PCO2 ISTAT 34 mmHg (35-45); ART PH ISTAT 7.43 (7.35-7.45); ART PO2 ISTAT 423 mmHg (75-100); ART SAT O2 SAT 100 % (95-99); ART TCO2 ISTAT 24 mmol/L (21-32); TOSPEC ART
[2017-03-22 13:33] LABS: ART BE ISTAT -2 mmol/L (0-3); ART GLUC ISTAT 140 mg/dL (70-99); ART HCO3 ISTAT 22 mmol/L (21-28); ART HCT ISTAT 30 % (37-52); ART HGB ISTAT 10.2 g/dL (14-18); ART NA ISTAT 138 mmol/L (135-145); ART PCO2 ISTAT 33 mmHg (35-45); ART PH ISTAT 7.44 (7.35-7.45); ART PO2 ISTAT 287 mmHg (75-100); ART SAT O2 SAT 100 % (95-99); ART TCO2 ISTAT 24 mmol/L (21-32); TOSPEC ART
[2017-03-22] MEDS: IV RINGERS,LACTATED 1000ML 1,000 ML IV SCH (13:43)
[2017-03-22] MEDS: PROPOFOL 100 ML IV PRN ×2 (13:44→16:51)
[2017-03-22] MEDS: MORPHINE SULFATE 2 MG/ML DISP.SYRIN. IV PRN ×5 (13:45→21:30)
[2017-03-22 14:04] LABS: HEMATOCRIT 35.7 % (39.0-53.0); HEMOGLOBIN 12.2 g/dL (13.0-17.5); RED BLOOD COUNT 3.79 x10^6/uL (4.30-5.70); RED CELL DISTRIBUTION WIDTH 13.6 % (11.5-14.5); WHITE BLOOD COUNT 12.1 x10^3/uL (4.0-11.0)
[2017-03-22 14:04] LABS: BASE EXCESS COOX -3 mmol/L (-3-3); CARBON MONOXIDE 0.1 % (0.0-1.9); HCO3 COOX 21 mmol/L (21-28); METHEMOGLOBIN 0.3 % (0.0-1.9); OXYHEMOGLOBIN 98.4 %; PCO2 COOX 34 mmHg (35-46); PO2 COOX 282 mmHg (75-108); SAT O2 COOX 99 % (92-99); TOTAL HEMOGLOBIN 12.9 g/dL
[2017-03-22 14:06] LABS: FIO2 COOX 100
[2017-03-22 14:15] LABS: CALCIUM 10.5 mg/dL (8.5-10.1); GFR 77.9; MAGNESIUM 2.6 mg/dL (1.8-2.4); POTASSIUM 4.3 mmol/L (3.5-5.1)
[2017-03-22 14:16] LABS: INR 1.3 (0.8-1.1); PROTHROMBIN TIME PATIENT 15.4 SEC (11.7-14.0)
[2017-03-22] MEDS: ALBUMIN HUMAN 5% 250 ML IV PRN ×2 (16:17→19:10)
--- NOTE | 2017-03-22 17:05 | PDOC2 ---
CONSULT Date of Consult Date of Consult DATE: 03/22/17 TIME: 16:57 Reason for Consult Reason for Consult: An aortic aneurysm and bicuspid aortic valve Referring Physician Referring Physician: Dr Guerra Identification/Chief Complaint Chief Complaint Ascending aortic aneurysm and bicuspid aortic valve Problems: History of Present Illness Reason for Visit: This patient is a 56-year-old gentleman that has an ascending aortic aneurysm and came to see me because of that. He had a workup including a LYNN and a heart catheterization that showed the aneurysm and that the aortic valve was a bicuspid valve. The size of the aneurysm was above 5 cm. The surgeons were consulted and the patient came in at this time to have surgery for a repair of the ascending aortic aneurysm and a valve replacement for the aortic valve. Past Medical History Cardiovascular: HTN, Other (bicuspid aortic valve with aortic insufficiency) Current Medications Current Medications Current Medications Potassium Chloride 70 meq/ Sodium Bicarbonate 12.5 meq/Lidocaine HCl 24 ml/ Parenteral Electrolytes 571.5 ml @ 571.5 mls/ hr 1X PERIOP ONCE IRR Last administered on 03/22/17 09:30; Start 03/22/17 at 06:00; Stop 03/22/17 at 06:59 ; Status DC Potassium Chloride 15 meq/ Sodium Bicarbonate 12.5 meq/Parenteral Electrolytes 520 ml @ 520 mls/hr 1X PERIOP ONCE IRR Last administered on 03/22/17 09:30; Start 03/22/17 at 06:00; Stop 03/22/17 at 06:59; Status DC Ondansetron HCl (Zofran) 4 mg PRN Q6HRS PRN IV NAUSEA/VOMITING; Start 03/22/17 at 07:00; Stop 03/22/17 at 18:00 Fentanyl Citrate (Fentanyl 2ml Vial) 25 mcg PRN Q5MIN PRN IV MILD PAIN; Start 03/22/17 at 07:00; Stop 03/22/17 at 18:00 Fentanyl Citrate (Fentanyl 2ml Vial) 50 mcg PRN Q5MIN PRN IV MODERATE PAIN; Start 03/22/17 at 07:00; Stop 03/22/17 at 18:00 Morphine Sulfate 1 mg PRN Q10MIN PRN IV SEVERE PAIN; Start 03/22/17 at 07:00; Stop 03/22/17 at 18:00 Ringer's Solution 1,000 ml @ 30 mls/hr Q24H IV Last administered on 03/22/17 06:59; Start 03/22/17 at 07:00; Stop 03/22/17 at 18:59 Lidocaine HCl 2 ml PRN 1X PRN ID PRIOR TO IV START Last administered on 07:02; Start 03/22/17 at 07:00; Stop 03/22/17 at 18:00 Hydromorphone HCl (Dilaudid) 0.5 mg PRN Q10MIN PRN IV SEV PAIN, Second choice; Start 03/22/17 at 07:00; Stop 03/22/17 at 18:00 Prochlorperazine Edisylate (Compazine) 5 mg PACU PRN PRN IV NAUSEA, MRX1; Start 03/22/17 at 07:00; Stop 03/22/17 at 18:00 Cefazolin Sodium/ Dextrose 50 ml @ 100 mls/hr 1X PREOP PRN IV Prior to Surgery Last administered on 03/22/17 12:00; Start 03/22/17 at 08:00 Metoprolol Tartrate (Lopressor) 25 mg 1X ONCE PO ; Start 03/22/17 at 06:00; Stop 03/22/17 at 06:01; Status DC Cellulose 1 each STK-MED ONCE .ROUTE ; Start 03/22/17 at 07:04; Stop 03/22/17 at 07:05; Status DC Gelatin (Gelfoam Size 100) 1 each STK-MED ONCE .ROUTE ; Start 03/22/17 at 07:04 ; Stop 03/22/17 at 07:05; Status DC Mineral Oil (Muri-Lube) 10 ml STK-MED ONCE MC Last administered on 03/22/17 11 :55; Start 03/22/17 at 07:04; Stop 03/22/17 at 07:05; Status DC Thrombin 20,000 unit STK-MED ONCE TP ; Start 03/22/17 at 07:04; Stop 03/22/17 at 07:05; Status DC Cellulose 1 each STK-MED ONCE .ROUTE ; Start 03/22/17 at 07:05; Stop 03/22/17 at 07:06; Status DC Nicardipine HCl 50 mg/Sodium Chloride 270 ml @ 27 mls/hr CONT PRN IV SEE I/O RECORD; Start 03/22/17 at 07:15 Midazolam HCl (Versed) 2 mg STK-MED ONCE .ROUTE ; Start 03/22/17 at 07:09; Stop 03/22/17 at 07:10; Status DC Rocuronium [place] (Zemuron) 100 mg STK-MED ONCE .ROUTE ; Start 03/22/17 at 07: 09; Stop 03/22/17 at 07:10; Status DC Sufentanil Citrate (Sufenta) 100 mcg STK-MED ONCE .ROUTE ; Start 03/22/17 at 07: 09; Stop 03/22/17 at 07:10; Status DC Aminocaproic Acid (Amicar) 5,000 mg STK-MED ONCE IV ; Start 03/22/17 at 07:10; Stop 03/22/17 at 07:11; Status DC Aminocaproic Acid (Amicar) 5,000 mg STK-MED ONCE IV ; Start 03/22/17 at 07:10; Stop 03/22/17 at 07:11; Status DC Aminocaproic Acid (Amicar) 5,000 mg STK-MED ONCE IV ; Start 03/22/17 at 07:10; Stop 03/22/17 at 07:11; Status DC Nitroglycerin/ Dextrose 250 ml @ As Directed STK-MED ONCE IV ; Start 03/22/17 at 07:10; Stop 03/22/17 at 07:11; Status DC Heparin Sodium (Porcine) (Heparin Sodium) 10,000 unit STK-MED ONCE .ROUTE ; Start 03/22/17 at 07:10; Stop 03/22/17 at 07:11; Status DC Heparin Sodium (Porcine) (Heparin Sodium) 10,000 unit STK-MED ONCE .ROUTE ; Start 03/22/17 at 07:10; Stop 03/22/17 at 07:11; Status DC Heparin Sodium (Porcine) (Heparin Sodium) 10,000 unit STK-MED ONCE .ROUTE ; Start 03/22/17 at 07:11; Stop 03/22/17 at 07:12; Status DC Heparin Sodium (Porcine) (Heparin Sodium) 10,000 unit STK-MED ONCE .ROUTE ; Start 03/22/17 at 07:11; Stop 03/22/17 at 07:12; Status DC Dexamethasone Sodium Phosphate (Decadron) 20 mg STK-MED ONCE .ROUTE ; Start at 07:11; Stop 03/22/17 at 07:12; Status DC Etomidate (Amidate) 20 mg STK-MED ONCE IV ; Start 03/22/17 at 07:11; Stop at 07:12; Status DC Isoflurane (Isoflurane) 90 ml STK-MED ONCE IH ; Start 03/22/17 at 07:11; Stop at 07:12; Status DC Ephedrine Sulfate 50 mg STK-MED ONCE IV ; Start 03/22/17 at 07:28; Stop at 07:29; Status DC Fentanyl Citrate (Fentanyl 2ml Vial) 100 mcg STK-MED ONCE .ROUTE ; Start at 07:41; Stop 03/22/17 at 07:42; Status DC Rocuronium [place] (Zemuron) 100 mg STK-MED ONCE .ROUTE ; Start 03/22/17 at 08: 48; Stop 03/22/17 at 08:49; Status DC Propofol 50 ml @ As Directed STK-MED ONCE IV ; Start 03/22/17 at 09:07; Stop at 09:08; Status DC Protamine Sulfate 50 mg STK-MED ONCE IV ; Start 03/22/17 at 09:17; Stop at 09:18; Status DC Protamine Sulfate 50 mg STK-MED ONCE IV ; Start 03/22/17 at 09:17; Stop at 09:18; Status DC Protamine Sulfate 50 mg STK-MED ONCE IV ; Start 03/22/17 at 09:17; Stop at 09:18; Status DC Protamine Sulfate 50 mg STK-MED ONCE IV ; Start 03/22/17 at 09:17; Stop at 09:18; Status DC Protamine Sulfate 50 mg STK-MED ONCE IV ; Start 03/22/17 at 09:17; Stop at 09:18; Status DC Protamine Sulfate 50 mg STK-MED ONCE IV ; Start 03/22/17 at 09:17; Stop at 09:18; Status DC Protamine Sulfate 50 mg STK-MED ONCE IV ; Start 03/22/17 at 09:20; Stop at 09:21; Status DC Protamine Sulfate 50 mg STK-MED ONCE IV ; Start 03/22/17 at 09:50; Stop at 09:51; Status DC Lidocaine HCl (Lidocaine Pf 2% Vial) 5 ml STK-MED ONCE .ROUTE ; Start 03/22/17 at 11:33; Stop 03/22/17 at 11:34; Status DC Lidocaine HCl (Lidocaine Pf 2% Vial) 5 ml STK-MED ONCE .ROUTE ; Start 03/22/17 at 11:33; Stop 03/22/17 at 11:34; Status DC Albumin Human 500 ml @ As Directed STK-MED ONCE IV ; Start 03/22/17 at 11:59; Stop 03/22/17 at 12:00; Status DC Clevidipine 100 ml @ 0 mls/hr CONT PRN IV PER PROTOCOL; Start 03/22/17 at 12:00 Lidocaine HCl (Lidocaine Pf 2% Vial) 5 ml STK-MED ONCE .ROUTE ; Start 03/22/17 at 12:08; Stop 03/22/17 at 12:09; Status DC Aminocaproic Acid (Amicar) 5,000 mg STK-MED ONCE IV ; Start 03/22/17 at 12:08; Stop 03/22/17 at 12:09; Status DC Mannitol (Mannitol) 12.5 g STK-MED ONCE .ROUTE ; Start 03/22/17 at 12:08; Stop 03/22/17 at 12:09; Status DC Calcium Chloride 1,000 mg STK-MED ONCE IV ; Start 03/22/17 at 12:08; Stop at 12:09; Status DC Albumin Human 100 ml @ As Directed STK-MED ONCE IV ; Start 03/22/17 at 12:08; Stop 03/22/17 at 12:09; Status DC Sodium Chloride (Normal Saline Flush) 3 ml PRN Q12HR PRN IV AFTER MEDS AND BLOOD DRAWS; Start 03/22/17 at 12:30 Ringer's Solution 1,000 ml @ 30 mls/hr Q24H IV Last administered on 03/22/17t 13:43; Start 03/22/17 at 12:21 Albumin Human 250 ml @ 60 mls/hr PRN Q4HRS PRN IV SEE I/O RECORD Last administered on 03/22/17 16:17; Start 03/22/17 at 13:05 Insulin Human Regular 150 unit/ Sodium Chloride 151.5 ml @ 0 mls/hr CONT PRN PRN IV SEE I/O RECORD; Start 03/22/17 at 12:30 Dextrose (Dextrose 50%-Water Syringe) 25 gm PRN Q15MIN PRN IV LOW BLOOD SUGAR; Start 03/22/17 at 12:30 Info 1 ea CONT PRN PRN MC SEE COMMENTS; Start 03/22/17 at 12:30 Info 1 ea CONT PRN PRN MC SEE COMMENTS; Start 03/22/17 at 12:30 Magnesium Sulfate/ Dextrose 100 ml @ 100 mls/hr PRN DAILY PRN IV FOR MAG < 2.2 ; Start 03/22/17 at 12:30 Famotidine (Pepcid) 20 mg BID IVP ; Start 03/22/17 at 21:00 Ondansetron HCl (Zofran) 4 mg PRN Q4HRS PRN IV NAUSEA/VOMITING; Start 03/22/17 at 12:30 Morphine Sulfate 2 mg PRN Q1HR PRN IV PAIN Last administered on 03/22/17 15:20 ; Start 03/22/17 at 12:30 Acetaminophen (Tylenol) 650 mg PRN Q4HRS PRN PO MILD PAIN / TEMP; Start at 12:30 Acetaminophen (Acetaminophen Supp) 650 mg PRN Q4HRS PRN [place] MILD PAIN / TEMP; Start 03/22/17 at 12:30 Meperidine HCl (Demerol) 12.5 mg PRN Q15MIN PRN IV SHIVERING; Start 03/22/17 at 12:30; Stop 03/23/17 at 12:21 Propofol 100 ml @ 0 mls/hr CONT PRN PRN IV POSTOP SEDATION UNTIL EXTUBATE Last administered on 03/22/17 16:51; Start 03/22/17 at 12:30 Senna/Docusate Sodium (Senna Plus) 1 tab BID PO ; Start 03/22/17 at 21:00 Bisacodyl (Dulcolax Supp) 10 mg PRN DAILY PRN [place] NO BOWEL MOVEMENT; Start 03/22 at 12:30 Albuterol Sulfate (Ventolin Neb Soln) 2.5 mg PRN Q4HRS PRN NEB SHORTNESS OF BREATH; Start 03/22/17 at 12:30 Metoprolol Tartrate (Lopressor) 25 mg BID PO ; Start 03/23/17 at 09:00 Oxycodone/ Acetaminophen (Percocet 5/325) 1 tab PRN Q4HRS PRN PO MILD PAIN; Start 03/22/17 at 12:30 Oxycodone/ Acetaminophen (Percocet 5/325) 2 tab PRN Q4HRS PRN PO MODERATE PAIN , SEVERE PAIN; Start 03/22/17 at 12:30 Cefazolin Sodium/ Dextrose 50 ml @ 100 mls/hr Q8H IV ; Start 03/22/17 at 14:30 ; Stop 03/22/17 at 14:30; Status DC Aspirin (Albert Aspirin) 325 mg DAILYWBKFT PO ; Start 03/23/17 at 08:00 Aspirin (Aspirin) 300 mg DAILY [place] ; Start 03/23/17 at 09:00 Amiodarone HCl (Cordarone) 400 mg BID PO ; Start 03/22/17 at 21:00 Warfarin Sodium (Coumadin) 5 mg DAILY16 PO ; Start 03/22/17 at 16:00 Warfarin Sodium (Coumadin Per Physician) 1 each PRN DAILY PRN MC SEE COMMENTS; Start 03/22/17 at 13:30 Cefazolin Sodium/ Dextrose 50 ml @ 100 mls/hr Q8H IV ; Start 03/22/17 at 20:00 ; Stop 03/24/17 at 04:01 Active Scripts Active Losartan Potassium 50 Mg Tablet 50 Mg PO DAILY Reported Multi-Day Vitamins (Multivitamin) 1 Each Tablet 1 Tab PO DAILY Glucosamine Complex-Msm Cap (Gluc Moss/Msm/Magnesium/Vit C) 1 Each Capsule 1 Each PO DAILY Metoprolol Tartrate 25 Mg Tablet 12.5 Mg PO BID Allergies Allergies: Coded Allergies: No Known Drug Allergies (Unverified , 03/22/17) Physical Exam HEENT: PERRLA, Other (patient orally intubated following the surgery) Lungs: Normal air movement Heart: Regular rate, Normal S1, Normal S2, Other (click of mechanical valve present) Abdomen: Normal bowel sounds, Soft Extremities: No edema Vitals VITALS Vital Signs Date Time Temp Pulse Resp B/P (MAP) Pulse Ox O2 Delivery O2 Flow Rate FiO2 03/22/17 16:38 98 Ventilator 03/22/17 16:38 98.6 80 14 89/52 (64) 98.6 Labs Labs Laboratory Tests Test 03/22/17 08:43 03/22/17 09:37 03/22/17 10:11 03/22/17 10:41 Bedside Hemoglobin (Calculated) 12.6 g/dL (14-18) 9.9 g/dL (14-18) 11.2 g/dL (14-18) 10.9 g/dL (14-18) Bedside Hematocrit 37 % (37-52) 29 % (37-52) 33 % (37-52) 32 % (37-52) Bedside Arterial pH 7.42 (7.35-7.45) 7.44 (7.35-7.45) 7.40 (7.35-7.45) 7.40 (7.35-7.45) Bedside Arterial pCO2 36 mmHg (35-45) 33 mmHg (35-45) 40 mmHg (35-45) 41 mmHg (35-45) Bedside Arterial pO2 240 mmHg (75-100) 332 mmHg (75-100) 254 mmHg (75-100) 250 mmHg (75-100) Bedside Arterial HCO3 24 mmol/L (21-28) 23 mmol/L (21-28) 24 mmol/L (21-28) 25 mmol/L (21-28) Bedside Arterial Total CO2 25 mmol/L (21-32) 24 mmol/L (21-32) 26 mmol/L (21-32) 27 mmol/L (21-32) Arterial Bld O2 Saturation (Measur) 100 % (95-99) 100 % (95-99) 100 % (95-99) 100 % (95-99) Bedside Arterial Blood Base Excess -1 mmol/L (0-3) -1 mmol/L (0-3) 0 mmol/L (0-3) 1 mmol/L (0-3) Bedside FiO2 100.0 70.0 70.0 70.0 Bedside Sodium 141 mmol/L (135-145) 137 mmol/L (135-145) 139 mmol/L (135-145) 139 mmol/L (135-145) Bedside Potassium 3.9 mmol/L (3.5-5.0) 5.4 mmol/L (3.5-5.0) 4.8 mmol/L (3.5-5.0) 5.0 mmol/L (3.5-5.0) Glucose Level 99 mg/dL (70-99) 105 mg/dL (70-99) 140 mg/dL (70-99) 166 mg/dL (70-99) Bedside Ionized Calcium (Kylie) 1.19 mmol/L (1.13-1.32) 1.00 mmol/L (1.13-1.32) 1.12 mmol/L (1.13-1.32) 1.12 mmol/L (1.13-1.32) Test 03/22/17 11:12 03/22/17 12:07 03/22/17 12:10 03/22/17 12:46 Bedside Hemoglobin (Calculated) 11.2 g/dL (14-18) 10.2 g/dL (14-18) 11.2 g/dL (14-18) Bedside Hematocrit 33 % (37-52) 30 % (37-52) 33 % (37-52) Bedside Arterial pH 7.39 (7.35-7.45) 7.44 (7.35-7.45) 7.43 (7.35-7.45) Bedside Arterial pCO2 41 mmHg (35-45) 33 mmHg (35-45) 34 mmHg (35-45) Bedside Arterial pO2 237 mmHg (75-100) 287 mmHg (75-100) 423 mmHg (75-100) Bedside Arterial HCO3 25 mmol/L (21-28) 22 mmol/L (21-28) 23 mmol/L (21-28) Bedside Arterial Total CO2 26 mmol/L (21-32) 24 mmol/L (21-32) 24 mmol/L (21-32) Arterial Bld O2 Saturation (Measur) 100 % (95-99) 100 % (95-99) 100 % (95-99) Bedside Arterial Blood Base Excess 0 mmol/L (0-3) -2 mmol/L (0-3) -2 mmol/L (0-3) Bedside FiO2 80.0 100.0 100.0 Bedside Sodium 140 mmol/L (135-145) 138 mmol/L (135-145) 140 mmol/L (135-145) Bedside Potassium 5.1 mmol/L (3.5-5.0) 4.0 mmol/L (3.5-5.0) 3.9 mmol/L (3.5-5.0) Glucose Level 156 mg/dL (70-99) 140 mg/dL (70-99) 134 mg/dL (70-99) Bedside Ionized Calcium (Kylie) 1.13 mmol/L (1.13-1.32) 1.90 mmol/L (1.13-1.32) 1.65 mmol/L (1.13-1.32) White Blood Count 11.2 x10^3/uL (4.0-11.0) Hemoglobin 10.7 g/dL (13.0-17.5) Hematocrit 31.4 % (39.0-53.0) Platelet Count 104 x10^3/uL (140-400) Prothrombin Time 16.9 SEC (11.7-14.0) Prothromb Time International Ratio 1.5 (0.8-1.1) Activated Partial Thromboplast Time 27 SEC (24-38) Fibrinogen 267 mg/dL (200-440) Test 03/22/17 13:50 03/22/17 13:54 03/22/17 13:55 03/22/17 15:23 O2 Saturation 99 % (92-99) Arterial Blood pH 7.40 (7.35-7.45) Arterial Blood pCO2 at Patient Temp 34 mmHg (35-46) Arterial Blood pO2 at Patient Temp 282 mmHg (75-108) Arterial Blood HCO3 21 mmol/L (21-28) Arterial Blood Base Excess -3 mmol/L (-3-3) Oxyhemoglobin 98.4 % Methemoglobin 0.3 % (0.0-1.9) Carbon Monoxide, Quantitative 0.1 % (0.0-1.9) FiO2 100 Glucose (Fingerstick) 152 mg/dL (70-99) 154 mg/dL (70-99) White Blood Count 12.1 x10^3/uL (4.0-11.0) Red Blood Count 3.79 x10^6/uL (4.30-5.70) Hemoglobin 12.2 g/dL (13.0-17.5) Hematocrit 35.7 % (39.0-53.0) Mean Corpuscular Volume 94 fL (79-100) Mean Corpuscular Hemoglobin 32 pg (25-35) Mean Corpuscular Hemoglobin Concent 34 g/dL (31-37) Red Cell Distribution Width 13.6 % (11.5-14.5) Platelet Count 93 x10^3/uL (140-400) Prothrombin Time 15.4 SEC (11.7-14.0) Prothromb Time International Ratio 1.3 (0.8-1.1) Activated Partial Thromboplast Time 29 SEC (24-38) Sodium Level 144 mmol/L (136-145) Potassium Level 4.3 mmol/L (3.5-5.1) Chloride Level 110 mmol/L (98-107) Carbon Dioxide Level 21 mmol/L (21-32) Anion Gap 13 (6-14) Blood Urea Nitrogen 21 mg/dL (8-26) Creatinine 1.0 mg/dL (0.7-1.3) Estimated GFR (Cockcroft-Gault) 77.9 Glucose Level 150 mg/dL (70-99) Calcium Level 10.5 mg/dL (8.5-10.1) Magnesium Level 2.6 mg/dL (1.8-2.4) Laboratory Tests Test 03/22/17 08:43 03/22/17 09:37 03/22/17 10:11 03/22/17 10:41 Bedside Hemoglobin (Calculated) 12.6 g/dL (14-18) 9.9 g/dL (14-18) 11.2 g/dL (14-18) 10.9 g/dL (14-18) Bedside Hematocrit 37 % (37-52) 29 % (37-52) 33 % (37-52) 32 % (37-52) Bedside Arterial pH 7.42 (7.35-7.45) 7.44 (7.35-7.45) 7.40 (7.35-7.45) 7.40 (7.35-7.45) Bedside Arterial pCO2 36 mmHg (35-45) 33 mmHg (35-45) 40 mmHg (35-45) 41 mmHg (35-45) Bedside Arterial pO2 240 mmHg (75-100) 332 mmHg (75-100) 254 mmHg (75-100) 250 mmHg (75-100) Bedside Arterial HCO3 24 mmol/L (21-28) 23 mmol/L (21-28) 24 mmol/L (21-28) 25 mmol/L (21-28) Bedside Arterial Total CO2 25 mmol/L (21-32) 24 mmol/L (21-32) 26 mmol/L (21-32) 27 mmol/L (21-32) Arterial Bld O2 Saturation (Measur) 100 % (95-99) 100 % (95-99) 100 % (95-99) 100 % (95-99) Bedside Arterial Blood Base Excess -1 mmol/L (0-3) -1 mmol/L (0-3) 0 mmol/L (0-3) 1 mmol/L (0-3) Bedside FiO2 100.0 70.0 70.0 70.0 Bedside Sodium 141 mmol/L (135-145) 137 mmol/L (135-145) 139 mmol/L (135-145) 139 mmol/L (135-145) Bedside Potassium 3.9 mmol/L (3.5-5.0) 5.4 mmol/L (3.5-5.0) 4.8 mmol/L (3.5-5.0) 5.0 mmol/L (3.5-5.0) Glucose Level 99 mg/dL (70-99) 105 mg/dL (70-99) 140 mg/dL (70-99) 166 mg/dL (70-99) Bedside Ionized Calcium (Kylie) 1.19 mmol/L (1.13-1.32) 1.00 mmol/L (1.13-1.32) 1.12 mmol/L (1.13-1.32) 1.12 mmol/L (1.13-1.32) Test 03/22/17 11:12 03/22/17 12:07 03/22/17 12:10 03/22/17 12:46 Bedside Hemoglobin (Calculated) 11.2 g/dL (14-18) 10.2 g/dL (14-18) 11.2 g/dL (14-18) Bedside Hematocrit 33 % (37-52) 30 % (37-52) 33 % (37-52) Bedside Arterial pH 7.39 (7.35-7.45) 7.44 (7.35-7.45) 7.43 (7.35-7.45) Bedside Arterial pCO2 41 mmHg (35-45) 33 mmHg (35-45) 34 mmHg (35-45) Bedside Arterial pO2 237 mmHg (75-100) 287 mmHg (75-100) 423 mmHg (75-100) Bedside Arterial HCO3 25 mmol/L (21-28) 22 mmol/L (21-28) 23 mmol/L (21-28) Bedside Arterial Total CO2 26 mmol/L (21-32) 24 mmol/L (21-32) 24 mmol/L (21-32) Arterial Bld O2 Saturation (Measur) 100 % (95-99) 100 % (95-99) 100 % (95-99) Bedside Arterial Blood Base Excess 0 mmol/L (0-3) -2 mmol/L (0-3) -2 mmol/L (0-3) Bedside FiO2 80.0 100.0 100.0 Bedside Sodium 140 mmol/L (135-145) 138 mmol/L (135-145) 140 mmol/L (135-145) Bedside Potassium 5.1 mmol/L (3.5-5.0) 4.0 mmol/L (3.5-5.0) 3.9 mmol/L (3.5-5.0) Glucose Level 156 mg/dL (70-99) 140 mg/dL (70-99) 134 mg/dL (70-99) Bedside Ionized Calcium (Kylie) 1.13 mmol/L (1.13-1.32) 1.90 mmol/L (1.13-1.32) 1.65 mmol/L (1.13-1.32) White Blood Count 11.2 x10^3/uL (4.0-11.0) Hemoglobin 10.7 g/dL (13.0-17.5) Hematocrit 31.4 % (39.0-53.0) Platelet Count 104 x10^3/uL (140-400) Prothrombin Time 16.9 SEC (11.7-14.0) Prothromb Time International Ratio 1.5 (0.8-1.1) Activated Partial Thromboplast Time 27 SEC (24-38) Fibrinogen 267 mg/dL (200-440) Test 03/22/17 13:50 03/22/17 13:54 03/22/17 13:55 03/22/17 15:23 O2 Saturation 99 % (92-99) Arterial Blood pH 7.40 (7.35-7.45) Arterial Blood pCO2 at Patient Temp 34 mmHg (35-46) Arterial Blood pO2 at Patient Temp 282 mmHg (75-108) Arterial Blood HCO3 21 mmol/L (21-28) Arterial Blood Base Excess -3 mmol/L (-3-3) Oxyhemoglobin 98.4 % Methemoglobin 0.3 % (0.0-1.9) Carbon Monoxide, Quantitative 0.1 % (0.0-1.9) FiO2 100 Glucose (Fingerstick) 152 mg/dL (70-99) 154 mg/dL (70-99) White Blood Count 12.1 x10^3/uL (4.0-11.0) Red Blood Count 3.79 x10^6/uL (4.30-5.70) Hemoglobin 12.2 g/dL (13.0-17.5) Hematocrit 35.7 % (39.0-53.0) Mean Corpuscular Volume 94 fL (79-100) Mean Corpuscular Hemoglobin 32 pg (25-35) Mean Corpuscular Hemoglobin Concent 34 g/dL (31-37) Red Cell Distribution Width 13.6 % (11.5-14.5) Platelet Count 93 x10^3/uL (140-400) Prothrombin Time 15.4 SEC (11.7-14.0) Prothromb Time International Ratio 1.3 (0.8-1.1) Activated Partial Thromboplast Time 29 SEC (24-38) Sodium Level 144 mmol/L (136-145) Potassium Level 4.3 mmol/L (3.5-5.1) Chloride Level 110 mmol/L (98-107) Carbon Dioxide Level 21 mmol/L (21-32) Anion Gap 13 (6-14) Blood Urea Nitrogen 21 mg/dL (8-26) Creatinine 1.0 mg/dL (0.7-1.3) Estimated GFR (Cockcroft-Gault) 77.9 Glucose Level 150 mg/dL (70-99) Calcium Level 10.5 mg/dL (8.5-10.1) Magnesium Level 2.6 mg/dL (1.8-2.4) Assessment/Plan Assessment/Plan This patient had a repair of an ascending aortic aneurysm and replacement of an aortic valve with a mechanical valve conduit. He tolerated the procedure rather well. Presently he is intubated but the are working on extubating the patient. I agree with the present plan. Thank you very much for asking me to participate in the care of this patient FAUSTINO PARK MD Mar 22, 2017 17:05
--- NOTE | 2017-03-22 17:35 | CARD ---
APPROVED REPORT EXAM: Transesophageal echocardiogram with color flow Doppler. PROCEDURE After obtaining informed consent, patient underwent transesophageal echo in the operating room 3. Type of Sedation : General Anesthesia Sedation was provided by anesthesiologist, see EMR for medications administered. Transesophageal probe was inserted and advanced into esophagus by the anesthesiologist.. The LYNN was performed without complications. Throughout the procedure, the blood pressure, pulse oximetry, cardiac rhythm, and rate were monitored . This transesophageal echocardiogram was performed under the supervision of Dr. Guerra. I was not present during the procedure. I'm just reviewing the pictures that were obtained. There will be no charge from me about this LYNN th at was done intraoperatively in the OR LEFT VENTRICLE The left ventricle is normal size. There is normal left ventricular wall thickness. Left ventricle sy stolic function is normal. The Ejection Fraction is 55%. There is normal LV segmental wall motion. RIGHT VENTRICLE The right ventricle is normal size. The right ventricular systolic function is normal. ATRIA The left atrium size is normal. The right atrium size is normal. AORTIC VALVE Doppler and Color Flow revealed no significant aortic regurgitation. This were the views that were do ne after the aortic valve replacement There is a mechanical aortic valve prosthesis. The prosthetic a ortic valve appears normal. TRICUSPID VALVE The tricuspid valve is normal in structure and function. GREAT VESSELS The aortic root is normal in size. It is a conduit and this were post ascending aorta replacement wit h a conduit Critical Notification Critical Value: No <Conclusion> Left ventricle systolic function is normal. The Ejection Fraction is 55%. The right ventricle is normal size. The left atrium size is normal. The right atrium size is normal. Doppler and Color Flow revealed no significant aortic regurgitation. This were the views that were do ne after the aortic valve replacement There is a mechanical aortic valve prosthesis. The prosthetic aortic valve appears normal. The aortic root is normal in size. It is a conduit and this were views post ascending aorta replacem ent with a conduit
[2017-03-22 18:13] LABS: HEMATOCRIT 33.5 % (39.0-53.0); HEMOGLOBIN 11.4 g/dL (13.0-17.5); RED BLOOD COUNT 3.53 x10^6/uL (4.30-5.70); RED CELL DISTRIBUTION WIDTH 14.1 % (11.5-14.5); WHITE BLOOD COUNT 11.6 x10^3/uL (4.0-11.0)
[2017-03-22 18:42] LABS: MAGNESIUM 2.3 mg/dL (1.8-2.4); POTASSIUM 4.4 mmol/L (3.5-5.1)
[2017-03-22 20:45] LABS: HCO3 ABG 18 mmol/L (21-28); PCO2 ABG 32 mmHg (35-46); PH ABG 7.36 (7.35-7.45); PO2 ABG 81 mmHg (75-108); SAT O2 ABG 94 % (92-99)
[2017-03-22 21:07] LABS: FIO2 ABG 40
[2017-03-22] MEDS: SENNOSIDES/DOCUSATE 8.6/50MG TABLET. PO SCH (21:14)
[2017-03-22] MEDS: WARFARIN 5 MG TABLET. PO SCH (21:14)
[2017-03-22] MEDS: ONDANSETRON PF 4 MG/2 ML VIAL. IV PRN (21:15)
[2017-03-22] MEDS: FAMOTIDINE 20 MG/2 ML VIAL IVP SCH (21:15)
[2017-03-22] MEDS: AMIODARONE HCL 200 MG TABLET. PO SCH (21:15)
[2017-03-22] MEDS: oxyCODONE/APAP 5/325 1 TAB TABLET PO PRN (21:16)
[2017-03-23] VITALS (24 sets, daily range): BP systolic 89–143; BP diastolic 53–72
--- NOTE | 2017-03-23 00:57 | ACF ---
Admission Forms Criteria CARDIOLOGY GRG Clinical Indications for Admission to Inpatient Care ( Place 'X' for any and all applicable criteria): Hospital admission is needed for appropriate care of the patient because of ANY ONE of the following (1): [ ] I. Hemodynamic instability as indicated by ALL of the following (1)(2)(3) (4)(5) [ ]a) Vital signs or other findings not as expected for chronic patient condition or baseline [ ]b) Instability indicated by ANY ONE of the following: [ ]i) Hypotension [ ]ii) Symptomatic Tachycardia unresponsive to treatment ( e.g., analgesia, fluids, sedation as indicated) [ ]iii) Inadequate perfusion indicated by ANY ONE of the following: [ ] 1) Lactic acidosis (> 2 mmol/L) [ ] 2) New abnormal capillary refill (> 3 seconds) [ ] 3) Reduced urine output [ ] 4) New altered mental status [ ]iv) Orthostatic vital sign changes unresponsive to treatment (e.g., fluids) [ ]v) IV inotropic or vasopressor medication required to maintain adequate blood pressure or perfusion [ ] II. Severe heart failure as indicated by ANY ONE of the following(17)(18) [ ]a) Respiratory distress [ ]b) Hypotension [ ]c) Anasarca (refractory to outpatient therapy) [ ]d) Cardiac arrhythmias of immediate concern [ ]e) Myocardial ischemia [ ] III. Cardiac arrhythmias or findings of immediate concern indicated by ANY ONE of the following (19)(20): [ ] a) Heart rhythms that are inherently dangerous or unstable indicated by ANY ONE of the following (21)(22)(23): [ ] i) Resuscitated ventricular fibrillation or cardiac arrest [ ] ii) Ventricular escape rhythm [ ] iii) Sustained ventricular tachycardia (30 seconds or more of ventricular rhythm at greater than 100 beats per minute) [ ] iv) Nonsustained ventricular tachycardia and ANY ONE of the following: [ ] 1) Suspected cardiac ischemia as cause or consequence of ventricular tachycardia [ ] 2) In setting of acute myocarditis [ ] b) Unstable cardiac conduction defects indicated by ANY ONE of the following(23)(24)(25) [ ] i) Type II second-degree atrioventricular block [ ]ii) Third-degree atrioventricular block [ ]iii) New-onset left bundle branch block with suspected myocardial ischemia [ ]c) Any heart rhythm and ANY ONE of the following (21)(22)(26)(27) (28) [ ] i) Continuous long-term ECG monitoring needed (e.g., initiation of drug requiring monitoring for more than 24 hours) [ ] ii) Patient has automatic implanted cardioverter defibrillator that is repeatedly firing, malfunctioning, or in need of immediate adjustment of settings beyond the scope of ambulatory or observation care [ ]d) Heart rhythms of concern due to ANY ONE of the following: [ ] i) Hypotension [ ] ii) Respiratory distress [ ] iii) Association with other significant symptoms (e.g., bradycardia with syncope or ongoing dizziness, supraventricular tachycardia with chest pain (14)(15)(17) [ ] IV. Monitoring for cardiac contusion beyond the scope of observation care needed [A](30)(31)(32) [ ] V. Surgical or device complication (e.g., valve replacement complication , pacemaker dysfunction) (35)(41)(44)(45)(46) [ ] . Inpatient palliative care needed. [B](49) Also use Inpatient Palliative Care Criteria [ ] VII. Nonbacterial thrombotic (marantic) endocarditis (36)(43)(47)(48) [X] VIII. Cardiology condition, symptom, or finding for which emergency and observation care has failed or are not considered appropriate. [ ] IX. Acute valvular disease requiring inpatient as indicated by ANY ONE of the following (41) [ ]a) Acute valvular regurgitation (42) [ ]b) Noninfectious valvulitis (43) [ ]c) Obstructive valve thrombosis [ ]d) Paravalvular leak [ ]e) Other significant valvular disorder remaining after emergency or observation level of care (as appropriate) [ ]X. Pericardial disease requiring inpatient treatment as indicated by ANY ONE of the following (33)(34)(35)(36)(37) [ ]a) Suspected tamponade (38)(39)(40) [ ]b) Hemopericardium [ ]c) Other significant pericardial disorder remaining after emergency or observation level of care (as appropriate) [ ] XI. Cardiac ischemia beyond scope of emergency and observation care. [ ] XII. Hypertension requiring inpatient treatment as indicated by ANY ONE of the following (6)(7)(8) [ ]a) SBP greater than 220 mm Hg or DBP greater than 120 mmHg despite treatment [ ]b) SBP greater than 140 mm Hg or DBP greater than 100 mm Hg with evidence of acute end organ damage as indicated by ANY ONE of the following [ ] i) Encephalopathy [ ] ii) Acute renal failure as indicated by new onset of ANY ONE of the following (9)(10)(11)(12)(13) [ ]1) 3-fold rise in serum creatinine from baseline [ ]2) Serum creatinine greater than 4 mg/dL ( 354 micromoles/L) with acute rise greater than 0.5 mg/dL (44.2 micromoles/L) [ ]3) Reduction of more than 75% in estimated glomerular filtration rate from baseline [ ]4) Estimated glomerular filtration rate less than 35 mL/min/1.73m2 (0.59 mL/sec/1.73m2) in child up to 18 years of age [ ]5) Cessation of urine output indicated by ALL of the following [ ]A. Adequate volume status [ ]B. Inadequate urine output as indicated by ANY ONE of the following [ ]a. Urine output less than 0.3 mL/kg/hr for 24 hours [ ]b. Anuria (urine output less than 0.1 mL/kg/hr) for 12 hours [ ] iii) Aortic dissection [ ] iv) Myocardial Ischemia [ ] v) Left ventricular heart failure [ ]vi) Retinal Hemorrhage [ ]vii) Other significant finding [ ]c) Hypertension in child requiring inpatient treatment as indicated by ALL of the following(14)(15)(16) [ ] i) Outpatient treatment not effective, not available, or not appropriate [ ]ii) SBP or DBP greater than 95th percentile for age [ ]iii) Evidence of acute end organ damage as indicated by ANY ONE of the following [ ]1) Altered mental status [ ]2) Acute renal failure as indicated by new onset of ANY ONE of the following(9)(10)(11)(12)(13) [ ]A. 3-fold rise in serum creatinine from baseline [ ]B. Serum creatinine greater than 4 mg/dL (354 micromoles/L) with acute rise greater than 0.5 mg/dL (44.2 micromoles/L) [ ]C. Reduction of more than 75% in estimated glomerular filtration rate from baseline [ ]D. Estimated glomerular filtration rate less than 35 mL/min/1.73m2 (0.59 mL/sec/1.73m2) in child up to 18 years of age [ ]E. Cessation of urine output indicated by ALL of the following [ ]a. Adequate volume status [ ]b. Inadequate urine output as indicated by ANY ONE of the following [ ]i) Urine output less than 0.3 mL/kg/hr for 24 hours [ ]ii) Anuria ( urine output less than 0.1 mL/kg/hr) for 12 hours [ ]3) Severe headache [ ]4) Visual disturbance [ ]5) Retinal hemorrhage [ ]6) Other significant finding [ ]XIII. Complications of transplanted heart indicated by ANY ONE of the following(61): [ ]a) Acute graft rejection requiring inpatient management (eg, intravenous immunosuppression)(62)(63) [ ]b) Acute graft heart failure indicated by ANY ONE of the following(64): [ ]i) Hemodynamic instability [ ]ii) Cardiac arrhythmias of immediate concern [ ]iii) Pulmonary edema that is very severe (eg, mechanical ventilation needed, imminent or likely, need for 100% oxygen to keep oxygen saturation above 90%) [ ]iv) Pulmonary edema that is persistent as indicated by ALL of the following: [ ]1) New need for oxygen therapy to keep oxygen saturation above 90% (or increased FiO2 need from baseline) [ ]2) Has not improved sufficiently with emergency department or observation care IV diuretics or other heart failure treatments[E] [ ]v) Altered mental status that is severe or persistent [ ]vi) Increased creatinine (new on laboratory test) with reduction of more than 50% in estimated glomerular filtration rate from baseline [ ]vii) Progressively (ongoing) rising creatinine (known from past laboratory test) with reduction of more than 25% in estimated glomerular filtration rate from baseline [ ]viii) Acute renal failure [ ]ix) Acute peripheral ischemia (eg, examination shows pulseless, cool, mottled, or cyanotic extremity) [ ]x) Pulmonary artery catheter monitoring needed [ ]xi) Other sign or symptom of heart failure requiring inpatient treatment (ie, too severe or not responsive to outpatient and observation care treatment) [ ]c) Infection requiring inpatient management (eg, Hemodynamic instability, need for intravenous antimicrobial treatment)(66)(67)(68)(69)(70) [ ]d) Cardiac allograft vasculopathy requiring inpatient management ( eg evidence of cardiac ischemia)(71) [ ]e) Other complication of transplanted heart (eg, stroke, severe pulmonary hypertension, severe valvular dysfunction) requiring inpatient management(72) The original [facility] content created by [facility] has been revised. The portions of the content which have been revised are identified through the use of italic text or in bold, and [facility] has neither reviewed nor approved the modified material. All other unmodified content is copyright [facility]. Please see references footnoted in the original [facility] edition 2016 Admission Criteria Met?: Yes CORRINE BENDER Mar 23, 2017 00:57
[2017-03-23] MEDS: oxyCODONE/APAP 5/325 1 TAB TABLET PO PRN ×5 (01:26→21:10)
--- NOTE | 2017-03-23 03:24 | EKG ---
[facility] [address] [place] [address] Test Date: 2017-03-23 Test Time: 03:26:41 Pat Name: FAHAD ZEE Department: Room: 103 1 Gender: M [employer]: MILTON : 1960 Requested By: MOHINDER ELLISON Order Number: [id number] Reading MD: Measurements Intervals [place] Rate: 86 P: 31 MI: 218 QRS: 23 QRSD: 80 T: 13 QT: 350 QTc: 422 Interpretive Statements SINUS RHYTHM PROLONGED MI INTERVAL QRS(T) CONTOUR ABNORMALITY CONSIDER ANTEROLATERAL MYOCARDIAL DAMAGE ABNORMAL ECG RI6.01 Compared to ECG 02/04/2017 11:01:00 First degree AV block now present Left-axis deviation no longer present T-wave abnormality no longer present
[2017-03-23] MEDS: IV RINGERS,LACTATED 1000ML 1,000 ML IV SCH (05:16)
[2017-03-23 05:38] LABS: HEMOGLOBIN 10.7 g/dL (13.0-17.5); RED BLOOD COUNT 3.33 x10^6/uL (4.30-5.70); RED CELL DISTRIBUTION WIDTH 13.8 % (11.5-14.5); WHITE BLOOD COUNT 13.8 x10^3/uL (4.0-11.0)
[2017-03-23 05:52] LABS: CREATININE 0.9 mg/dL (0.7-1.3); GFR 87.9; MAGNESIUM 1.9 mg/dL (1.8-2.4); POTASSIUM 4.4 mmol/L (3.5-5.1)
[2017-03-23 05:54] LABS: INR 1.3 (0.8-1.1); PROTHROMBIN TIME PATIENT 15.6 SEC (11.7-14.0)
[2017-03-23 06:00] LABS: CALCIUM 8.5 mg/dL (8.5-10.1)
--- NOTE | 2017-03-23 07:12 | PDOC ---
Provider Note Provider Note POD # 1 [place] Procedure Pt awake, alert SR 78 VSS wound sites ok left leg with palpable DP pulse Labs noted CXR looks like LLL atelectasis IMP: doing well post-op Plan: D/c art line, sgc ambulate MT's out later tody leave wires another 24 Hrs B Chintan/amio for a fib prevention Coumadin SIMIN ASTUDILLO MD Mar 23, 2017 07:12
[2017-03-23] MEDS: FAMOTIDINE 20 MG/2 ML VIAL IVP SCH ×2 (08:31→21:11)
[2017-03-23] MEDS: ASPIRIN 325 MG TABLET PO SCH (08:31)
[2017-03-23] MEDS: SENNOSIDES/DOCUSATE 8.6/50MG TABLET. PO SCH ×2 (08:31→21:10)
[2017-03-23] MEDS: METOPROLOL TART IMMED RELEASE 25 MG TABLET. PO SCH ×2 (09:00→21:11)
[2017-03-23] MEDS ORDERED: MAGNESIUM SULFATE 2GM 50 ML IV ONE (09:00)
[2017-03-23] MEDS ORDERED: ASPIRIN 300 MG SUPP.RECT PR SCH (09:00)
[2017-03-23] MEDS: AMIODARONE HCL 200 MG TABLET. PO SCH ×2 (09:14→21:11)
--- NOTE | 2017-03-23 09:24 | RAD ---
INDICATION: POST OP 103 COMPARISON: 03/22/2017 FINDINGS: Single view of chest obtained. Enlarged cardiac silhouette with poststernotomy changes. Drain at mediastinum again seen. Cisco-Celine catheter with tip likely in right pulmonary artery. Haziness in left mid to lower lung. Hypoexpanded exam IMPRESSION: Lines and tubes as above. Haziness at left mid to lower lung. Could be secondary to a region of atelectasis but infiltrate not excluded.
--- NOTE | 2017-03-23 11:28 | PDOC ---
PROGRESS NOTES Subjective Subjective Mr Higgins was awake and alert in bed when visited. He didn't have any complaints. He said he feels really good. Patient was in sinus rhythm. Objective Objective Vital Signs Date Time Temp Pulse Resp B/P (MAP) Pulse Ox O2 Delivery O2 Flow Rate FiO2 03/23/17 09:14 83 112/75 03/23/17 08:00 17 96 Nasal Cannula 4.0 03/23/17 07:00 99.7 99.7 Intake and Output 03/23/17 06:59 Intake Total 2228.3 ml Output Total 1407 ml Balance 821.3 ml Intake Oral 600 ml IV Total 1628.3 ml Output Urine Total 1115 ml Chest Tube Drainage Total 292 ml Physical Exam Heart: Regular rate (and rhythm), Normal S1, Normal S2, Rubs, Other (click) Extremities: Normal pulses (2/4 radial b/l) General: Alert, No acute distress Lungs: Clear to auscultation (b/l), Normal air movement Assessment Assessment Mr Higgins appears to be recovering well from surgery. He reports no pain. Will continue to monitor cardiac status Comment Review of Relevant I have reviewed the following items bettina (where applicable) has been applied. Labs Laboratory Tests Test 03/22/17 08:37 03/22/17 08:43 03/22/17 09:09 03/22/17 09:37 Activated Clotting Time 180 SEC (90-125) 529 SEC (90-125) Bedside Hemoglobin (Calculated) 12.6 g/dL (14-18) 9.9 g/dL (14-18) Bedside Hematocrit 37 % (37-52) 29 % (37-52) Bedside Arterial pH 7.42 (7.35-7.45) 7.44 (7.35-7.45) Bedside Arterial pCO2 36 mmHg (35-45) 33 mmHg (35-45) Bedside Arterial pO2 240 mmHg (75-100) 332 mmHg (75-100) Bedside Arterial HCO3 24 mmol/L (21-28) 23 mmol/L (21-28) Bedside Arterial Total CO2 25 mmol/L (21-32) 24 mmol/L (21-32) Arterial Bld O2 Saturation (Measur) 100 % (95-99) 100 % (95-99) Bedside Arterial Blood Base Excess -1 mmol/L (0-3) -1 mmol/L (0-3) Bedside FiO2 100.0 70.0 Bedside Sodium 141 mmol/L (135-145) 137 mmol/L (135-145) Bedside Potassium 3.9 mmol/L (3.5-5.0) 5.4 mmol/L (3.5-5.0) Glucose Level 99 mg/dL (70-99) 105 mg/dL (70-99) Bedside Ionized Calcium (Kylie) 1.19 mmol/L (1.13-1.32) 1.00 mmol/L (1.13-1.32) Test 03/22/17 09:40 03/22/17 10:11 03/22/17 10:13 03/22/17 10:41 Activated Clotting Time 526 SEC (90-125) 501 SEC (90-125) Bedside Hemoglobin (Calculated) 11.2 g/dL (-18) 10.9 g/dL (-18) Bedside Hematocrit 33 % (37-52) 32 % (37-52) Bedside Arterial pH 7.40 (7.35-7.45) 7.40 (7.35-7.45) Bedside Arterial pCO2 40 mmHg (35-45) 41 mmHg (35-45) Bedside Arterial pO2 254 mmHg (75-100) 250 mmHg (75-100) Bedside Arterial HCO3 24 mmol/L (21-28) 25 mmol/L (21-28) Bedside Arterial Total CO2 26 mmol/L (21-32) 27 mmol/L (21-32) Arterial Bld O2 Saturation (Measur) 100 % (95-99) 100 % (95-99) Bedside Arterial Blood Base Excess 0 mmol/L (0-3) 1 mmol/L (0-3) Bedside FiO2 70.0 70.0 Bedside Sodium 139 mmol/L (135-145) 139 mmol/L (135-145) Bedside Potassium 4.8 mmol/L (3.5-5.0) 5.0 mmol/L (3.5-5.0) Glucose Level 140 mg/dL (70-99) 166 mg/dL (70-99) Bedside Ionized Calcium (Kylie) 1.12 mmol/L (1.13-1.32) 1.12 mmol/L (1.13-1.32) Test 03/22/17 10:43 03/22/17 11:12 03/22/17 11:14 03/22/17 12:07 Activated Clotting Time 444 SEC (90-125) 465 SEC (90-125) Bedside Hemoglobin (Calculated) 11.2 g/dL (14-18) 10.2 g/dL (14-18) Bedside Hematocrit 33 % (37-52) 30 % (37-52) Bedside Arterial pH 7.39 (7.35-7.45) 7.44 (7.35-7.45) Bedside Arterial pCO2 41 mmHg (35-45) 33 mmHg (35-45) Bedside Arterial pO2 237 mmHg (75-100) 287 mmHg (75-100) Bedside Arterial HCO3 25 mmol/L (21-28) 22 mmol/L (21-28) Bedside Arterial Total CO2 26 mmol/L (21-32) 24 mmol/L (21-32) Arterial Bld O2 Saturation (Measur) 100 % (95-99) 100 % (95-99) Bedside Arterial Blood Base Excess 0 mmol/L (0-3) -2 mmol/L (0-3) Bedside FiO2 80.0 100.0 Bedside Sodium 140 mmol/L (135-145) 138 mmol/L (135-145) Bedside Potassium 5.1 mmol/L (3.5-5.0) 4.0 mmol/L (3.5-5.0) Glucose Level 156 mg/dL (70-99) 140 mg/dL (70-99) Bedside Ionized Calcium (Kylie) 1.13 mmol/L (1.13-1.32) 1.90 mmol/L (1.13-1.32) Test 03/22/17 12:09 03/22/17 12:10 03/22/17 12:46 03/22/17 13:50 Activated Clotting Time 118 SEC (90-125) White Blood Count 11.2 x10^3/uL (4.0-11.0) Hemoglobin 10.7 g/dL (13.0-17.5) Hematocrit 31.4 % (39.0-53.0) Platelet Count 104 x10^3/uL (140-400) Prothrombin Time 16.9 SEC (11.7-14.0) Prothromb Time International Ratio 1.5 (0.8-1.1) Activated Partial Thromboplast Time 27 SEC (24-38) Fibrinogen 267 mg/dL (200-440) Bedside Hemoglobin (Calculated) 11.2 g/dL (14-18) Bedside Hematocrit 33 % (37-52) Bedside Arterial pH 7.43 (7.35-7.45) Bedside Arterial pCO2 34 mmHg (35-45) Bedside Arterial pO2 423 mmHg (75-100) Bedside Arterial HCO3 23 mmol/L (21-28) Bedside Arterial Total CO2 24 mmol/L (21-32) Arterial Bld O2 Saturation (Measur) 100 % (95-99) Bedside Arterial Blood Base Excess -2 mmol/L (0-3) Bedside FiO2 100.0 Bedside Sodium 140 mmol/L (135-145) Bedside Potassium 3.9 mmol/L (3.5-5.0) Glucose Level 134 mg/dL (70-99) Bedside Ionized Calcium (Kylie) 1.65 mmol/L (1.13-1.32) O2 Saturation 99 % (92-99) Arterial Blood pH 7.40 (7.35-7.45) Arterial Blood pCO2 at Patient Temp 34 mmHg (35-46) Arterial Blood pO2 at Patient Temp 282 mmHg (75-108) Arterial Blood HCO3 21 mmol/L (21-28) Arterial Blood Base Excess -3 mmol/L (-3-3) Oxyhemoglobin 98.4 % Methemoglobin 0.3 % (0.0-1.9) Carbon Monoxide, Quantitative 0.1 % (0.0-1.9) FiO2 100 Test 03/22/17 13:54 03/22/17 13:55 03/22/17 15:23 03/22/17 18:00 Glucose (Fingerstick) 152 mg/dL (70-99) 154 mg/dL (70-99) White Blood Count 12.1 x10^3/uL (4.0-11.0) 11.6 x10^3/uL (4.0-11.0) Red Blood Count 3.79 x10^6/uL (4.30-5.70) 3.53 x10^6/uL (4.30-5.70) Hemoglobin 12.2 g/dL (13.0-17.5) 11.4 g/dL (13.0-17.5) Hematocrit 35.7 % (39.0-53.0) 33.5 % (39.0-53.0) Mean Corpuscular Volume 94 fL (79-100) 95 fL (79-100) Mean Corpuscular Hemoglobin 32 pg (25-35) 32 pg (25-35) Mean Corpuscular Hemoglobin Concent 34 g/dL (31-37) 34 g/dL (31-37) Red Cell Distribution Width 13.6 % (11.5-14.5) 14.1 % (11.5-14.5) Platelet Count 93 x10^3/uL (140-400) 93 x10^3/uL (140-400) Prothrombin Time 15.4 SEC (11.7-14.0) Prothromb Time International Ratio 1.3 (0.8-1.1) Activated Partial Thromboplast Time 29 SEC (24-38) Sodium Level 144 mmol/L (136-145) Potassium Level 4.3 mmol/L (3.5-5.1) 4.4 mmol/L (3.5-5.1) Chloride Level 110 mmol/L (98-107) Carbon Dioxide Level 21 mmol/L (21-32) Anion Gap 13 (6-14) Blood Urea Nitrogen 21 mg/dL (8-26) Creatinine 1.0 mg/dL (0.7-1.3) Estimated GFR (Cockcroft-Gault) 77.9 Glucose Level 150 mg/dL (70-99) Calcium Level 10.5 mg/dL (8.5-10.1) Magnesium Level 2.6 mg/dL (1.8-2.4) 2.3 mg/dL (1.8-2.4) Test 03/22/17 18:38 03/22/17 20:04 03/22/17 20:18 03/22/17 21:04 Glucose (Fingerstick) 165 mg/dL (70-99) 173 mg/dL (70-99) 170 mg/dL (70-99) O2 Saturation 94 % (92-99) Arterial Blood pH 7.36 (7.35-7.45) Arterial Blood pCO2 at Patient Temp 32 mmHg (35-46) Arterial Blood pO2 at Patient Temp 81 mmHg (75-108) Arterial Blood HCO3 18 mmol/L (21-28) Arterial Blood Base Excess -7 mmol/L (-3-3) FiO2 40 Test 03/22/17 22:14 03/22/17 23:12 03/23/17 00:15 03/23/17 01:20 Glucose (Fingerstick) 150 mg/dL (70-99) 150 mg/dL (70-99) 132 mg/dL (70-99) 107 mg/dL (70-99) Test 03/23/17 02:18 03/23/17 03:08 03/23/17 04:14 03/23/17 05:20 Glucose (Fingerstick) 145 mg/dL (70-99) 148 mg/dL (70-99) 152 mg/dL (70-99) 134 mg/dL (70-99) White Blood Count 13.8 x10^3/uL (4.0-11.0) Red Blood Count 3.33 x10^6/uL (4.30-5.70) Hemoglobin 10.7 g/dL (13.0-17.5) Hematocrit 31.0 % (39.0-53.0) Mean Corpuscular Volume 93 fL (79-100) Mean Corpuscular Hemoglobin 32 pg (25-35) Mean Corpuscular Hemoglobin Concent 35 g/dL (31-37) Red Cell Distribution Width 13.8 % (11.5-14.5) Platelet Count 89 x10^3/uL (140-400) Prothrombin Time 15.6 SEC (11.7-14.0) Prothromb Time International Ratio 1.3 (0.8-1.1) Sodium Level 143 mmol/L (136-145) Potassium Level 4.4 mmol/L (3.5-5.1) Chloride Level 109 mmol/L (98-107) Carbon Dioxide Level 24 mmol/L (21-32) Anion Gap 10 (6-14) Blood Urea Nitrogen 23 mg/dL (8-26) Creatinine 0.9 mg/dL (0.7-1.3) Estimated GFR (Cockcroft-Gault) 87.9 Glucose Level 140 mg/dL (70-99) Calcium Level 8.5 mg/dL (8.5-10.1) Magnesium Level 1.9 mg/dL (1.8-2.4) Test 03/23/17 06:24 Glucose (Fingerstick) 139 mg/dL (70-99) Laboratory Tests Test 03/22/17 12:07 03/22/17 12:09 03/22/17 12:10 03/22/17 12:46 Bedside Hemoglobin (Calculated) 10.2 g/dL (14-18) 11.2 g/dL (14-18) Bedside Hematocrit 30 % (37-52) 33 % (37-52) Bedside Arterial pH 7.44 (7.35-7.45) 7.43 (7.35-7.45) Bedside Arterial pCO2 33 mmHg (35-45) 34 mmHg (35-45) Bedside Arterial pO2 287 mmHg (75-100) 423 mmHg (75-100) Bedside Arterial HCO3 22 mmol/L (21-28) 23 mmol/L (21-28) Bedside Arterial Total CO2 24 mmol/L (21-32) 24 mmol/L (21-32) Arterial Bld O2 Saturation (Measur) 100 % (95-99) 100 % (95-99) Bedside Arterial Blood Base Excess -2 mmol/L (0-3) -2 mmol/L (0-3) Bedside FiO2 100.0 100.0 Bedside Sodium 138 mmol/L (135-145) 140 mmol/L (135-145) Bedside Potassium 4.0 mmol/L (3.5-5.0) 3.9 mmol/L (3.5-5.0) Glucose Level 140 mg/dL (70-99) 134 mg/dL (70-99) Bedside Ionized Calcium (Kylie) 1.90 mmol/L (1.13-1.32) 1.65 mmol/L (1.13-1.32) Activated Clotting Time 118 SEC (90-125) White Blood Count 11.2 x10^3/uL (4.0-11.0) Hemoglobin 10.7 g/dL (13.0-17.5) Hematocrit 31.4 % (39.0-53.0) Platelet Count 104 x10^3/uL (140-400) Prothrombin Time 16.9 SEC (11.7-14.0) Prothromb Time International Ratio 1.5 (0.8-1.1) Activated Partial Thromboplast Time 27 SEC (24-38) Fibrinogen 267 mg/dL (200-440) Test 03/22/17 13:50 03/22/17 13:54 03/22/17 13:55 03/22/17 15:23 O2 Saturation 99 % (92-99) Arterial Blood pH 7.40 (7.35-7.45) Arterial Blood pCO2 at Patient Temp 34 mmHg (35-46) Arterial Blood pO2 at Patient Temp 282 mmHg (75-108) Arterial Blood HCO3 21 mmol/L (21-28) Arterial Blood Base Excess -3 mmol/L (-3-3) Oxyhemoglobin 98.4 % Methemoglobin 0.3 % (0.0-1.9) Carbon Monoxide, Quantitative 0.1 % (0.0-1.9) FiO2 100 Glucose (Fingerstick) 152 mg/dL (70-99) 154 mg/dL (70-99) White Blood Count 12.1 x10^3/uL (4.0-11.0) Red Blood Count 3.79 x10^6/uL (4.30-5.70) Hemoglobin 12.2 g/dL (13.0-17.5) Hematocrit 35.7 % (39.0-53.0) Mean Corpuscular Volume 94 fL (79-100) Mean Corpuscular Hemoglobin 32 pg (25-35) Mean Corpuscular Hemoglobin Concent 34 g/dL (31-37) Red Cell Distribution Width 13.6 % (11.5-14.5) Platelet Count 93 x10^3/uL (140-400) Prothrombin Time 15.4 SEC (11.7-14.0) Prothromb Time International Ratio 1.3 (0.8-1.1) Activated Partial Thromboplast Time 29 SEC (24-38) Sodium Level 144 mmol/L (136-145) Potassium Level 4.3 mmol/L (3.5-5.1) Chloride Level 110 mmol/L (98-107) Carbon Dioxide Level 21 mmol/L (21-32) Anion Gap 13 (6-14) Blood Urea Nitrogen 21 mg/dL (8-26) Creatinine 1.0 mg/dL (0.7-1.3) Estimated GFR (Cockcroft-Gault) 77.9 Glucose Level 150 mg/dL (70-99) Calcium Level 10.5 mg/dL (8.5-10.1) Magnesium Level 2.6 mg/dL (1.8-2.4) Test 03/22/17 18:00 03/22/17 18:38 03/22/17 20:04 03/22/17 20:18 White Blood Count 11.6 x10^3/uL (4.0-11.0) Red Blood Count 3.53 x10^6/uL (4.30-5.70) Hemoglobin 11.4 g/dL (13.0-17.5) Hematocrit 33.5 % (39.0-53.0) Mean Corpuscular Volume 95 fL (79-100) Mean Corpuscular Hemoglobin 32 pg (25-35) Mean Corpuscular Hemoglobin Concent 34 g/dL (31-37) Red Cell Distribution Width 14.1 % (11.5-14.5) Platelet Count 93 x10^3/uL (140-400) Potassium Level 4.4 mmol/L (3.5-5.1) Magnesium Level 2.3 mg/dL (1.8-2.4) Glucose (Fingerstick) 165 mg/dL (70-99) 173 mg/dL (70-99) O2 Saturation 94 % (92-99) Arterial Blood pH 7.36 (7.35-7.45) Arterial Blood pCO2 at Patient Temp 32 mmHg (35-46) Arterial Blood pO2 at Patient Temp 81 mmHg (75-108) Arterial Blood HCO3 18 mmol/L (21-28) Arterial Blood Base Excess -7 mmol/L (-3-3) FiO2 40 Test 03/22/17 21:04 03/22/17 22:14 03/22/17 23:12 03/23/17 00:15 Glucose (Fingerstick) 170 mg/dL (70-99) 150 mg/dL (70-99) 150 mg/dL (70-99) 132 mg/dL (70-99) Test 03/23/17 01:20 03/23/17 02:18 03/23/17 03:08 03/23/17 04:14 Glucose (Fingerstick) 107 mg/dL (70-99) 145 mg/dL (70-99) 148 mg/dL (70-99) 152 mg/dL (70-99) Test 03/23/17 05:20 03/23/17 06:24 White Blood Count 13.8 x10^3/uL (4.0-11.0) Red Blood Count 3.33 x10^6/uL (4.30-5.70) Hemoglobin 10.7 g/dL (13.0-17.5) Hematocrit 31.0 % (39.0-53.0) Mean Corpuscular Volume 93 fL (79-100) Mean Corpuscular Hemoglobin 32 pg (25-35) Mean Corpuscular Hemoglobin Concent 35 g/dL (31-37) Red Cell Distribution Width 13.8 % (11.5-14.5) Platelet Count 89 x10^3/uL (140-400) Prothrombin Time 15.6 SEC (11.7-14.0) Prothromb Time International Ratio 1.3 (0.8-1.1) Sodium Level 143 mmol/L (136-145) Potassium Level 4.4 mmol/L (3.5-5.1) Chloride Level 109 mmol/L (98-107) Carbon Dioxide Level 24 mmol/L (21-32) Anion Gap 10 (6-14) Blood Urea Nitrogen 23 mg/dL (8-26) Creatinine 0.9 mg/dL (0.7-1.3) Estimated GFR (Cockcroft-Gault) 87.9 Glucose Level 140 mg/dL (70-99) Glucose (Fingerstick) 134 mg/dL (70-99) 139 mg/dL (70-99) Calcium Level 8.5 mg/dL (8.5-10.1) Magnesium Level 1.9 mg/dL (1.8-2.4) Medications Current Medications Potassium Chloride 70 meq/ Sodium Bicarbonate 12.5 meq/Lidocaine HCl 24 ml/ Parenteral Electrolytes 571.5 ml @ 571.5 mls/ hr 1X PERIOP ONCE IRR Last administered on 03/22/17 09:30; Start 03/22/17 at 06:00; Stop 03/22/17 at 06:59 ; Status DC Potassium Chloride 15 meq/ Sodium Bicarbonate 12.5 meq/Parenteral Electrolytes 520 ml @ 520 mls/hr 1X PERIOP ONCE IRR Last administered on 03/22/17 09:30; Start 03/22/17 at 06:00; Stop 03/22/17 at 06:59; Status DC Ondansetron HCl (Zofran) 4 mg PRN Q6HRS PRN IV NAUSEA/VOMITING; Start 03/22/17 at 07:00; Stop 03/22/17 at 18:00; Status DC Fentanyl Citrate (Fentanyl 2ml Vial) 25 mcg PRN Q5MIN PRN IV MILD PAIN; Start 03/22/17 at 07:00; Stop 03/22/17 at 18:00; Status DC Fentanyl Citrate (Fentanyl 2ml Vial) 50 mcg PRN Q5MIN PRN IV MODERATE PAIN; Start 03/22/17 at 07:00; Stop 03/22/17 at 18:00; Status DC Morphine Sulfate 1 mg PRN Q10MIN PRN IV SEVERE PAIN; Start 03/22/17 at 07:00; Stop 03/22/17 at 18:00; Status DC Ringer's Solution 1,000 ml @ 30 mls/hr Q24H IV Last administered on 03/22/17 06:59; Start 03/22/17 at 07:00; Stop 03/22/17 at 18:59; Status DC Lidocaine HCl 2 ml PRN 1X PRN ID PRIOR TO IV START Last administered on 07:02; Start 03/22/17 at 07:00; Stop 03/22/17 at 18:00; Status DC Hydromorphone HCl (Dilaudid) 0.5 mg PRN Q10MIN PRN IV SEV PAIN, Second choice; Start 03/22/17 at 07:00; Stop 03/22/17 at 18:00; Status DC Prochlorperazine Edisylate (Compazine) 5 mg PACU PRN PRN IV NAUSEA, MRX1; Start 03/22/17 at 07:00; Stop 03/22/17 at 18:00; Status DC Cefazolin Sodium/ Dextrose 50 ml @ 100 mls/hr 1X PREOP PRN IV Prior to Surgery Last administered on 03/22/17 12:00; Start 03/22/17 at 08:00; Stop at 06:57; Status DC Metoprolol Tartrate (Lopressor) 25 mg 1X ONCE PO ; Start 03/22/17 at 06:00; Stop 03/22/17 at 06:01; Status DC Cellulose 1 each STK-MED ONCE .ROUTE ; Start 03/22/17 at 07:04; Stop 03/22/17 at 07:05; Status DC Gelatin (Gelfoam Size 100) 1 each STK-MED ONCE .ROUTE ; Start 03/22/17 at 07:04 ; Stop 03/22/17 at 07:05; Status DC Mineral Oil (Muri-Lube) 10 ml STK-MED ONCE MC Last administered on 03/22/17t 11 :55; Start 03/22/17 at 07:04; Stop 03/22/17 at 07:05; Status DC Thrombin 20,000 unit STK-MED ONCE TP ; Start 03/22/17 at 07:04; Stop 03/22/17 at 07:05; Status DC Cellulose 1 each STK-MED ONCE .ROUTE ; Start 03/22/17 at 07:05; Stop 03/22/17 at 07:06; Status DC Nicardipine HCl 50 mg/Sodium Chloride 270 ml @ 27 mls/hr CONT PRN IV SEE I/O RECORD; Start 03/22/17 at 07:15; Stop 03/23/17 at 07:15; Status DC Midazolam HCl (Versed) 2 mg STK-MED ONCE .ROUTE ; Start 03/22/17 at 07:09; Stop 03/22/17 at 07:10; Status DC Rocuronium [place] (Zemuron) 100 mg STK-MED ONCE .ROUTE ; Start 03/22/17 at 07: 09; Stop 03/22/17 at 07:10; Status DC Sufentanil Citrate (Sufenta) 100 mcg STK-MED ONCE .ROUTE ; Start 03/22/17 at 07: 09; Stop 03/22/17 at 07:10; Status DC Aminocaproic Acid (Amicar) 5,000 mg STK-MED ONCE IV ; Start 03/22/17 at 07:10; Stop 03/22/17 at 07:11; Status DC Aminocaproic Acid (Amicar) 5,000 mg STK-MED ONCE IV ; Start 03/22/17 at 07:10; Stop 03/22/17 at 07:11; Status DC Aminocaproic Acid (Amicar) 5,000 mg STK-MED ONCE IV ; Start 03/22/17 at 07:10; Stop 03/22/17 at 07:11; Status DC Nitroglycerin/ Dextrose 250 ml @ As Directed STK-MED ONCE IV ; Start 03/22/17 at 07:10; Stop 03/22/17 at 07:11; Status DC Heparin Sodium (Porcine) (Heparin Sodium) 10,000 unit STK-MED ONCE .ROUTE ; Start 03/22/17 at 07:10; Stop 03/22/17 at 07:11; Status DC Heparin Sodium (Porcine) (Heparin Sodium) 10,000 unit STK-MED ONCE .ROUTE ; Start 03/22/17 at 07:10; Stop 03/22/17 at 07:11; Status DC Heparin Sodium (Porcine) (Heparin Sodium) 10,000 unit STK-MED ONCE .ROUTE ; Start 03/22/17 at 07:11; Stop 03/22/17 at 07:12; Status DC Heparin Sodium (Porcine) (Heparin Sodium) 10,000 unit STK-MED ONCE .ROUTE ; Start 03/22/17 at 07:11; Stop 03/22/17 at 07:12; Status DC Dexamethasone Sodium Phosphate (Decadron) 20 mg STK-MED ONCE .ROUTE ; Start at 07:11; Stop 03/22/17 at 07:12; Status DC Etomidate (Amidate) 20 mg STK-MED ONCE IV ; Start 03/22/17 at 07:11; Stop at 07:12; Status DC Isoflurane (Isoflurane) 90 ml STK-MED ONCE IH ; Start 03/22/17 at 07:11; Stop at 07:12; Status DC Ephedrine Sulfate 50 mg STK-MED ONCE IV ; Start 03/22/17 at 07:28; Stop at 07:29; Status DC Fentanyl Citrate (Fentanyl 2ml Vial) 100 mcg STK-MED ONCE .ROUTE ; Start at 07:41; Stop 03/22/17 at 07:42; Status DC Rocuronium [place] (Zemuron) 100 mg STK-MED ONCE .ROUTE ; Start 03/22/17 at 08: 48; Stop 03/22/17 at 08:49; Status DC Propofol 50 ml @ As Directed STK-MED ONCE IV ; Start 03/22/17 at 09:07; Stop at 09:08; Status DC Protamine Sulfate 50 mg STK-MED ONCE IV ; Start 03/22/17 at 09:17; Stop at 09:18; Status DC Protamine Sulfate 50 mg STK-MED ONCE IV ; Start 03/22/17 at 09:17; Stop at 09:18; Status DC Protamine Sulfate 50 mg STK-MED ONCE IV ; Start 03/22/17 at 09:17; Stop at 09:18; Status DC Protamine Sulfate 50 mg STK-MED ONCE IV ; Start 03/22/17 at 09:17; Stop at 09:18; Status DC Protamine Sulfate 50 mg STK-MED ONCE IV ; Start 03/22/17 at 09:17; Stop at 09:18; Status DC Protamine Sulfate 50 mg STK-MED ONCE IV ; Start 03/22/17 at 09:17; Stop at 09:18; Status DC Protamine Sulfate 50 mg STK-MED ONCE IV ; Start 03/22/17 at 09:20; Stop at 09:21; Status DC Protamine Sulfate 50 mg STK-MED ONCE IV ; Start 03/22/17 at 09:50; Stop at 09:51; Status DC Lidocaine HCl (Lidocaine Pf 2% Vial) 5 ml STK-MED ONCE .ROUTE ; Start 03/22/17 at 11:33; Stop 03/22/17 at 11:34; Status DC Lidocaine HCl (Lidocaine Pf 2% Vial) 5 ml STK-MED ONCE .ROUTE ; Start 03/22/17 at 11:33; Stop 03/22/17 at 11:34; Status DC Albumin Human 500 ml @ As Directed STK-MED ONCE IV ; Start 03/22/17 at 11:59; Stop 03/22/17 at 12:00; Status DC Clevidipine 100 ml @ 0 mls/hr CONT PRN IV PER PROTOCOL; Start 03/22/17 at 12:00 ; Stop 03/23/17 at 07:15; Status DC Lidocaine HCl (Lidocaine Pf 2% Vial) 5 ml STK-MED ONCE .ROUTE ; Start 03/22/17 at 12:08; Stop 03/22/17 at 12:09; Status DC Aminocaproic Acid (Amicar) 5,000 mg STK-MED ONCE IV ; Start 03/22/17 at 12:08; Stop 03/22/17 at 12:09; Status DC Mannitol (Mannitol) 12.5 g STK-MED ONCE .ROUTE ; Start 03/22/17 at 12:08; Stop 03/22/17 at 12:09; Status DC Calcium Chloride 1,000 mg STK-MED ONCE IV ; Start 03/22/17 at 12:08; Stop at 12:09; Status DC Albumin Human 100 ml @ As Directed STK-MED ONCE IV ; Start 03/22/17 at 12:08; Stop 03/22/17 at 12:09; Status DC Sodium Chloride (Normal Saline Flush) 3 ml PRN Q12HR PRN IV AFTER MEDS AND BLOOD DRAWS; Start 03/22/17 at 12:30 Ringer's Solution 1,000 ml @ 30 mls/hr Q24H IV Last administered on 03/23/17 05:16; Start 03/22/17 at 12:21; Stop 03/23/17 at 07:15; Status DC Albumin Human 250 ml @ 60 mls/hr PRN Q4HRS PRN IV SEE I/O RECORD Last administered on 03/22/17 19:10; Start 03/22/17 at 13:05; Stop 03/23/17 at 08:08 ; Status DC Insulin Human Regular 150 unit/ Sodium Chloride 151.5 ml @ 0 mls/hr CONT PRN PRN IV SEE I/O RECORD Last administered on 03/22/17 19:10; Start 03/22/17 at 12 :30 Dextrose (Dextrose 50%-Water Syringe) 25 gm PRN Q15MIN PRN IV LOW BLOOD SUGAR; Start 03/22/17 at 12:30 Info 1 ea CONT PRN PRN MC SEE COMMENTS; Start 03/22/17 at 12:30 Info 1 ea CONT PRN PRN MC SEE COMMENTS; Start 03/22/17 at 12:30 Magnesium Sulfate/ Dextrose 100 ml @ 100 mls/hr PRN DAILY PRN IV FOR MAG < 2.2 ; Start 03/22/17 at 12:30; Status Cancel Famotidine (Pepcid) 20 mg BID IVP Last administered on 03/23/17 08:31; Start 03/22/17 at 21:00 Ondansetron HCl (Zofran) 4 mg PRN Q4HRS PRN IV NAUSEA/VOMITING Last administered on 03/22/17 21:15; Start 03/22/17 at 12:30 Morphine Sulfate 2 mg PRN Q1HR PRN IV PAIN Last administered on 03/22/17 21:30 ; Start 03/22/17 at 12:30 Acetaminophen (Tylenol) 650 mg PRN Q4HRS PRN PO MILD PAIN / TEMP; Start at 12:30 Acetaminophen (Acetaminophen Supp) 650 mg PRN Q4HRS PRN [place] MILD PAIN / TEMP; Start 03/22/17 at 12:30 Meperidine HCl (Demerol) 12.5 mg PRN Q15MIN PRN IV SHIVERING; Start 03/22/17 at 12:30; Stop 03/23/17 at 07:15; Status DC Propofol 100 ml @ 0 mls/hr CONT PRN PRN IV POSTOP SEDATION UNTIL EXTUBATE Last administered on 03/22/17 16:51; Start 03/22/17 at 12:30; Stop 03/23/17 at 07:15 ; Status DC Senna/Docusate Sodium (Senna Plus) 1 tab BID PO Last administered on 03/23/17 08:31; Start 03/22/17 at 21:00 Bisacodyl (Dulcolax Supp) 10 mg PRN DAILY PRN [place] NO BOWEL MOVEMENT; Start 03/22 at 12:30 Albuterol Sulfate (Ventolin Neb Soln) 2.5 mg PRN Q4HRS PRN NEB SHORTNESS OF BREATH; Start 03/22/17 at 12:30 Metoprolol Tartrate (Lopressor) 25 mg BID PO ; Start 03/23/17 at 09:00 Oxycodone/ Acetaminophen (Percocet 5/325) 1 tab PRN Q4HRS PRN PO MILD PAIN; Start 03/22/17 at 12:30 Oxycodone/ Acetaminophen (Percocet 5/325) 2 tab PRN Q4HRS PRN PO MODERATE PAIN , SEVERE PAIN Last administered on 03/23/17 06:24; Start 03/22/17 at 12:30 Cefazolin Sodium/ Dextrose 50 ml @ 100 mls/hr Q8H IV ; Start 03/22/17 at 14:30 ; Stop 03/22/17 at 14:30; Status DC Aspirin (Albert Aspirin) 325 mg DAILYWBKFT PO Last administered on 03/23/17 08: 31; Start 03/23/17 at 08:00 Aspirin (Aspirin) 300 mg DAILY [place] ; Start 03/23/17 at 09:00; Stop 03/23/17 at 09 :00; Status DC Amiodarone HCl (Cordarone) 400 mg BID PO Last administered on 03/23/17 09:14; Start 03/22/17 at 21:00 Warfarin Sodium (Coumadin) 5 mg DAILY16 PO Last administered on 03/22/17 21:14 ; Start 03/22/17 at 16:00 Warfarin Sodium (Coumadin Per Physician) 1 each PRN DAILY PRN MC SEE COMMENTS Last administered on 03/23/17 09:59; Start 03/22/17 at 13:30 Cefazolin Sodium/ Dextrose 50 ml @ 100 mls/hr Q8H IV Last administered on 03/23 04:25; Start 03/22/17 at 20:00; Stop 03/24/17 at 04:01 Magnesium Sulfate/ Dextrose 50 ml @ 25 mls/hr 1X ONCE IV Last administered on 03/23/17 09:11; Start 03/23/17 at 09:00; Stop 03/23/17 at 10:59; Status DC Active Scripts Active Losartan Potassium 50 Mg Tablet 50 Mg PO DAILY Reported Multi-Day Vitamins (Multivitamin) 1 Each Tablet 1 Tab PO DAILY Glucosamine Complex-Msm Cap (Gluc Moss/Msm/Magnesium/Vit C) 1 Each Capsule 1 Each PO DAILY Metoprolol Tartrate 25 Mg Tablet 12.5 Mg PO BID Vitals/I & O Vital Sign - Last 24 Hours 03/22/17 03/22/17 03/22/17 03/22/17 13:00 13:25 13:41 13:45 Temp 97.9 97.9 Pulse 83 83 Resp 14 14 B/P (MAP) 92/57 (69) 92/57 (69) Pulse Ox 100 100 100 O2 Delivery Ventilator Ventilator Ventilator 03/22/17 03/22/17 03/22/17 03/22/17 14:00 14:00 14:15 14:15 Temp 98.3 98.2 98.3 98.2 Pulse 83 83 83 81 Resp 14 14 B/P (MAP) 95/62 (73) 95/62 (73) 90/54 (66) 90/54 (66) Pulse Ox 100 100 O2 Delivery Ventilator Ventilator 03/22/17 03/22/17 03/22/17 03/22/17 14:45 15:00 15:20 15:20 Pulse 82 B/P (MAP) 98/60 (73) Pulse Ox 100 100 O2 Delivery Mechanical Ventilator Ventilator Ventilator 03/22/17 03/22/17 03/22/17 03/22/17 15:52 15:53 16:36 16:38 Temp 98.2 98.6 98.2 98.6 Pulse 82 82 80 80 Resp 14 14 B/P (MAP) 81/49 (60) 81/52 (62) 89/52 (64) 89/52 (64) Pulse Ox 100 100 O2 Delivery Ventilator Ventilator 03/22/17 03/22/17 03/22/17 03/22/17 16:38 17:29 17:29 18:15 Temp 98.8 98.8 Pulse 79 80 Resp 14 B/P (MAP) 82/49 (60) 89/53 (65) Pulse Ox 98 100 100 O2 Delivery Ventilator Ventilator Ventilator 03/22/17 03/22/17 03/22/17 03/22/17 18:20 19:00 19:00 19:28 Temp 99.5 99.5 Pulse 79 78 78 Resp 18 B/P (MAP) 82/48 (59) 84/48 (60) 84/48 (60) Pulse Ox 94 95 O2 Delivery Ventilator Ventilator 03/22/17 03/22/17 03/22/17 03/22/17 19:30 20:00 20:00 20:00 Temp 99.6 99.6 Pulse 86 86 Resp 21 B/P (MAP) 95/53 (67) 95/53 (67) Pulse Ox 93 93 O2 Delivery Mechanical Ventilator Ventilator Ventilator 03/22/17 03/22/17 03/22/17 03/22/17 21:00 21:00 21:15 21:16 Temp 99.3 99.3 Pulse 85 85 86 Resp 26 27 B/P (MAP) 104/53 (70) 104/53 (70) 102/55 Pulse Ox 93 94 O2 Delivery Nasal Cannula Nasal Cannula O2 Flow Rate 5.0 5.0 03/22/17 03/22/17 03/22/17 03/22/17 21:30 22:00 22:00 22:00 Temp 99.4 99.4 Pulse 85 85 Resp 30 30 B/P (MAP) 92/51 (65) 92/51 (65) Pulse Ox 94 95 95 O2 Delivery Nasal Cannula Nasal Cannula Nasal Cannula O2 Flow Rate 5.0 5.0 5.0 03/22/17 03/22/17 03/22/17 03/23/17 23:00 23:00 23:59 00:00 Temp 99.5 99.5 99.5 99.5 Pulse 82 82 86 Resp 30 B/P (MAP) 119/50 (73) 119/50 (73) 134/54 (80) Pulse Ox 97 99 O2 Delivery Nasal Cannula Nasal Cannula Nasal Cannula O2 Flow Rate 5.0 5.0 5.0 03/23/17 03/23/17 03/23/17 03/23/17 00:00 01:00 01:00 01:26 Temp 99.6 99.6 Pulse 86 84 84 Resp 20 B/P (MAP) 134/54 (80) 128/54 (78) 128/54 (78) Pulse Ox 97 96 O2 Delivery Nasal Cannula Nasal Cannula O2 Flow Rate 5.0 5.0 03/23/17 03/23/17 03/23/17 03/23/17 02:00 02:00 02:22 03:00 Temp 99.8 99.6 99.8 99.6 Pulse 81 81 82 Resp 24 B/P (MAP) 130/55 (80) 130/55 (80) 126/62 (83) Pulse Ox 96 96 95 O2 Delivery Nasal Cannula Nasal Cannula Nasal Cannula O2 Flow Rate 5.0 5.0 5.0 03/23/17 03/23/17 03/23/17 03/23/17 03:00 04:00 04:00 04:00 Temp 99.3 99.3 Pulse 82 87 87 Resp B/P (MAP) 126/62 (83) 122/63 (82) 122/63 (82) Pulse Ox 94 O2 Delivery Nasal Cannula Nasal Cannula O2 Flow Rate 5.0 5.0 03/23/17 03/23/17 03/23/17 03/23/17 05:00 05:00 06:00 06:00 Temp 99.7 99.8 99.7 99.8 Pulse 82 82 83 83 Resp 27 26 B/P (MAP) 126/58 (80) 126/58 (80) 121/54 (76) 121/54 (76) Pulse Ox 95 95 O2 Delivery Nasal Cannula Nasal Cannula O2 Flow Rate 5.0 5.0 03/23/17 03/23/17 03/23/17 03/23/17 06:24 07:00 08:00 08:20 Temp 99.7 99.7 Pulse 84 83 84 Resp 26 16 17 B/P (MAP) 141/54 (83) 143/54 (83) Pulse Ox 95 95 96 O2 Delivery Nasal Cannula Nasal Cannula Nasal Cannula O2 Flow Rate 5.0 5.0 4.0 03/23/17 09:14 Pulse 83 B/P (MAP) 112/75 Intake and Output 03/22/17 03/22/17 03/23/17 14:59 22:59 06:59 Intake Total 100 ml 300 ml 1828.3 ml Output Total 295 ml 513 ml 599 ml Balance -195 ml -213 ml 1229.3 ml FAUSTINO PARK MD Mar 23, 2017 11:28
[2017-03-23] MEDS: MORPHINE SULFATE 2 MG/ML DISP.SYRIN. IV PRN ×2 (11:30→11:41)
[2017-03-23] MEDS: WARFARIN 5 MG TABLET. PO SCH (18:37)
[2017-03-24] VITALS (17 sets, daily range): BP systolic 82–115; BP diastolic 56–77
[2017-03-24] MEDS: oxyCODONE/APAP 5/325 1 TAB TABLET PO PRN ×2 (04:16→12:52)
[2017-03-24 06:11] LABS: BASO % 0 % (0-3); EOS % 0 % (0-3); HEMATOCRIT 30.8 % (39.0-53.0); HEMOGLOBIN 10.5 g/dL (13.0-17.5); LYMPH # 1.8 x10^3/uL (1.0-4.8); LYMPH % 12 % (24-48); MEAN CORPUSCULAR HEMOGLOBIN 32 pg (25-35); MEAN CORPUSCULAR HGB CONC 34 g/dL (31-37); MEAN CORPUSCULAR VOLUME 96 fL (79-100); MONO % 13 % (0-9); NEUT % 75 % (31-73); PLATELET COUNT 83 x10^3/uL (140-400); RED BLOOD COUNT 3.23 x10^6/uL (4.30-5.70); RED CELL DISTRIBUTION WIDTH 13.9 % (11.5-14.5)
[2017-03-24 06:24] LABS: INR 1.3 (0.8-1.1); PROTHROMBIN TIME PATIENT 15.8 SEC (11.7-14.0)
[2017-03-24 06:43] LABS: CREATININE 0.9 mg/dL (0.7-1.3); GFR 87.9; POTASSIUM 4.5 mmol/L (3.5-5.1)
[2017-03-24] MEDS: ONDANSETRON PF 4 MG/2 ML VIAL. IV PRN (08:16)
--- NOTE | 2017-03-24 08:38 | PDOC ---
Provider Note Provider Note Pt awake, alert BP 90/50 SR 71 wound sites ok labs noted cxr ok Plan hold b juancarlos hold diuretic Wires removed OK to move to Tele bed SIMIN ASTUDILLO MD Mar 24, 2017 08:38
--- NOTE | 2017-03-24 08:52 | PDOC ---
PROGRESS NOTES Subjective Subjective Mr Higgins was awake and sitting in a chair this morning. He says his pain is a 2/ 10. He has shortness of breath when he walks. Patient in sinus rhythm Objective Objective Vital Signs Date Time Temp Pulse Resp B/P (MAP) Pulse Ox O2 Delivery O2 Flow Rate FiO2 03/24/17 06:00 67 18 95/56 (69) 94 Nasal Cannula 3.0 03/24/17 04:00 98.6 98.6 Intake and Output 03/24/17 07:00 Intake Total 2262.5 ml Output Total 1195 ml Balance 1067.5 ml Intake Oral 1930 ml IV Total 332.5 ml Output Urine Total 1135 ml Chest Tube Drainage Total 60 ml Physical Exam Heart: Regular rate, Other (click) General: Alert, No acute distress Lungs: Clear to auscultation (b/l), Normal air movement Assessment Assessment Mr Higgins continues to maintain sinus rhythm, with no episodes of chest pain or shortness of breath while sitting. Will continue to monitor cardiac status Comment Review of Relevant I have reviewed the following items bettina (where applicable) has been applied. Labs Laboratory Tests Test 03/22/17 09:09 03/22/17 09:37 03/22/17 09:40 03/22/17 10:11 Activated Clotting Time 529 SEC (90-125) 526 SEC (90-125) Bedside Hemoglobin (Calculated) 9.9 g/dL (14-18) 11.2 g/dL (14-18) Bedside Hematocrit 29 % (37-52) 33 % (37-52) Bedside Arterial pH 7.44 (7.35-7.45) 7.40 (7.35-7.45) Bedside Arterial pCO2 33 mmHg (35-45) 40 mmHg (35-45) Bedside Arterial pO2 332 mmHg (75-100) 254 mmHg (75-100) Bedside Arterial HCO3 23 mmol/L (21-28) 24 mmol/L (21-28) Bedside Arterial Total CO2 24 mmol/L (21-32) 26 mmol/L (21-32) Arterial Bld O2 Saturation (Measur) 100 % (95-99) 100 % (95-99) Bedside Arterial Blood Base Excess -1 mmol/L (0-3) 0 mmol/L (0-3) Bedside FiO2 70.0 70.0 Bedside Sodium 137 mmol/L (135-145) 139 mmol/L (135-145) Bedside Potassium 5.4 mmol/L (3.5-5.0) 4.8 mmol/L (3.5-5.0) Glucose Level 105 mg/dL (70-99) 140 mg/dL (70-99) Bedside Ionized Calcium (Kylie) 1.00 mmol/L (1.13-1.32) 1.12 mmol/L (1.13-1.32) Test 03/22/17 10:13 03/22/17 10:41 03/22/17 10:43 03/22/17 11:12 Activated Clotting Time 501 SEC (90-125) 444 SEC (90-125) Bedside Hemoglobin (Calculated) 10.9 g/dL (-18) 11.2 g/dL (14-18) Bedside Hematocrit 32 % (37-52) 33 % (37-52) Bedside Arterial pH 7.40 (7.35-7.45) 7.39 (7.35-7.45) Bedside Arterial pCO2 41 mmHg (35-45) 41 mmHg (35-45) Bedside Arterial pO2 250 mmHg (75-100) 237 mmHg (75-100) Bedside Arterial HCO3 25 mmol/L (21-28) 25 mmol/L (21-28) Bedside Arterial Total CO2 27 mmol/L (21-32) 26 mmol/L (21-32) Arterial Bld O2 Saturation (Measur) 100 % (95-99) 100 % (95-99) Bedside Arterial Blood Base Excess 1 mmol/L (0-3) 0 mmol/L (0-3) Bedside FiO2 70.0 80.0 Bedside Sodium 139 mmol/L (135-145) 140 mmol/L (135-145) Bedside Potassium 5.0 mmol/L (3.5-5.0) 5.1 mmol/L (3.5-5.0) Glucose Level 166 mg/dL (70-99) 156 mg/dL (70-99) Bedside Ionized Calcium (Kylie) 1.12 mmol/L (1.13-1.32) 1.13 mmol/L (1.13-1.32) Test 03/22/17 11:14 03/22/17 12:07 03/22/17 12:09 03/22/17 12:10 Activated Clotting Time 465 SEC (90-125) 118 SEC (90-125) Bedside Hemoglobin (Calculated) 10.2 g/dL (14-18) Bedside Hematocrit 30 % (37-52) Bedside Arterial pH 7.44 (7.35-7.45) Bedside Arterial pCO2 33 mmHg (35-45) Bedside Arterial pO2 287 mmHg (75-100) Bedside Arterial HCO3 22 mmol/L (21-28) Bedside Arterial Total CO2 24 mmol/L (21-32) Arterial Bld O2 Saturation (Measur) 100 % (95-99) Bedside Arterial Blood Base Excess -2 mmol/L (0-3) Bedside FiO2 100.0 Bedside Sodium 138 mmol/L (135-145) Bedside Potassium 4.0 mmol/L (3.5-5.0) Glucose Level 140 mg/dL (70-99) Bedside Ionized Calcium (Kylie) 1.90 mmol/L (1.13-1.32) White Blood Count 11.2 x10^3/uL (4.0-11.0) Hemoglobin 10.7 g/dL (13.0-17.5) Hematocrit 31.4 % (39.0-53.0) Platelet Count 104 x10^3/uL (140-400) Prothrombin Time 16.9 SEC (11.7-14.0) Prothromb Time International Ratio 1.5 (0.8-1.1) Activated Partial Thromboplast Time 27 SEC (24-38) Fibrinogen 267 mg/dL (200-440) Test 03/22/17 12:46 03/22/17 13:50 03/22/17 13:54 03/22/17 13:55 Bedside Hemoglobin (Calculated) 11.2 g/dL (14-18) Bedside Hematocrit 33 % (37-52) Bedside Arterial pH 7.43 (7.35-7.45) Bedside Arterial pCO2 34 mmHg (35-45) Bedside Arterial pO2 423 mmHg (75-100) Bedside Arterial HCO3 23 mmol/L (21-28) Bedside Arterial Total CO2 24 mmol/L (21-32) Arterial Bld O2 Saturation (Measur) 100 % (95-99) Bedside Arterial Blood Base Excess -2 mmol/L (0-3) Bedside FiO2 100.0 Bedside Sodium 140 mmol/L (135-145) Bedside Potassium 3.9 mmol/L (3.5-5.0) Glucose Level 134 mg/dL (70-99) 150 mg/dL (70-99) Bedside Ionized Calcium (Kylie) 1.65 mmol/L (1.13-1.32) O2 Saturation 99 % (92-99) Arterial Blood pH 7.40 (7.35-7.45) Arterial Blood pCO2 at Patient Temp 34 mmHg (35-46) Arterial Blood pO2 at Patient Temp 282 mmHg (75-108) Arterial Blood HCO3 21 mmol/L (21-28) Arterial Blood Base Excess -3 mmol/L (-3-3) Oxyhemoglobin 98.4 % Methemoglobin 0.3 % (0.0-1.9) Carbon Monoxide, Quantitative 0.1 % (0.0-1.9) FiO2 100 Glucose (Fingerstick) 152 mg/dL (70-99) White Blood Count 12.1 x10^3/uL (4.0-11.0) Red Blood Count 3.79 x10^6/uL (4.30-5.70) Hemoglobin 12.2 g/dL (13.0-17.5) Hematocrit 35.7 % (39.0-53.0) Mean Corpuscular Volume 94 fL (79-100) Mean Corpuscular Hemoglobin 32 pg (25-35) Mean Corpuscular Hemoglobin Concent 34 g/dL (31-37) Red Cell Distribution Width 13.6 % (11.5-14.5) Platelet Count 93 x10^3/uL (140-400) Prothrombin Time 15.4 SEC (11.7-14.0) Prothromb Time International Ratio 1.3 (0.8-1.1) Activated Partial Thromboplast Time 29 SEC (24-38) Sodium Level 144 mmol/L (136-145) Potassium Level 4.3 mmol/L (3.5-5.1) Chloride Level 110 mmol/L (98-107) Carbon Dioxide Level 21 mmol/L (21-32) Anion Gap 13 (6-14) Blood Urea Nitrogen 21 mg/dL (8-26) Creatinine 1.0 mg/dL (0.7-1.3) Estimated GFR (Cockcroft-Gault) 77.9 Calcium Level 10.5 mg/dL (8.5-10.1) Magnesium Level 2.6 mg/dL (1.8-2.4) Test 03/22/17 15:23 03/22/17 18:00 03/22/17 18:38 03/22/17 20:04 Glucose (Fingerstick) 154 mg/dL (70-99) 165 mg/dL (70-99) 173 mg/dL (70-99) White Blood Count 11.6 x10^3/uL (4.0-11.0) Red Blood Count 3.53 x10^6/uL (4.30-5.70) Hemoglobin 11.4 g/dL (13.0-17.5) Hematocrit 33.5 % (39.0-53.0) Mean Corpuscular Volume 95 fL (79-100) Mean Corpuscular Hemoglobin 32 pg (25-35) Mean Corpuscular Hemoglobin Concent 34 g/dL (31-37) Red Cell Distribution Width 14.1 % (11.5-14.5) Platelet Count 93 x10^3/uL (140-400) Potassium Level 4.4 mmol/L (3.5-5.1) Magnesium Level 2.3 mg/dL (1.8-2.4) Test 03/22/17 20:18 03/22/17 21:04 03/22/17 22:14 03/22/17 23:12 O2 Saturation 94 % (92-99) Arterial Blood pH 7.36 (7.35-7.45) Arterial Blood pCO2 at Patient Temp 32 mmHg (35-46) Arterial Blood pO2 at Patient Temp 81 mmHg (75-108) Arterial Blood HCO3 18 mmol/L (21-28) Arterial Blood Base Excess -7 mmol/L (-3-3) FiO2 40 Glucose (Fingerstick) 170 mg/dL (70-99) 150 mg/dL (70-99) 150 mg/dL (70-99) Test 03/23/17 00:15 03/23/17 01:20 03/23/17 02:18 03/23/17 03:08 Glucose (Fingerstick) 132 mg/dL (70-99) 107 mg/dL (70-99) 145 mg/dL (70-99) 148 mg/dL (70-99) Test 03/23/17 04:14 03/23/17 05:20 03/23/17 06:24 03/23/17 13:11 Glucose (Fingerstick) 152 mg/dL (70-99) 134 mg/dL (70-99) 139 mg/dL (70-99) 134 mg/dL (70-99) White Blood Count 13.8 x10^3/uL (4.0-11.0) Red Blood Count 3.33 x10^6/uL (4.30-5.70) Hemoglobin 10.7 g/dL (13.0-17.5) Hematocrit 31.0 % (39.0-53.0) Mean Corpuscular Volume 93 fL (79-100) Mean Corpuscular Hemoglobin 32 pg (25-35) Mean Corpuscular Hemoglobin Concent 35 g/dL (31-37) Red Cell Distribution Width 13.8 % (11.5-14.5) Platelet Count 89 x10^3/uL (140-400) Prothrombin Time 15.6 SEC (11.7-14.0) Prothromb Time International Ratio 1.3 (0.8-1.1) Sodium Level 143 mmol/L (136-145) Potassium Level 4.4 mmol/L (3.5-5.1) Chloride Level 109 mmol/L (98-107) Carbon Dioxide Level 24 mmol/L (21-32) Anion Gap 10 (6-14) Blood Urea Nitrogen 23 mg/dL (8-26) Creatinine 0.9 mg/dL (0.7-1.3) Estimated GFR (Cockcroft-Gault) 87.9 Glucose Level 140 mg/dL (70-99) Calcium Level 8.5 mg/dL (8.5-10.1) Magnesium Level 1.9 mg/dL (1.8-2.4) Test 03/23/17 16:27 03/23/17 20:38 03/23/17 23:47 03/24/17 04:08 Glucose (Fingerstick) 149 mg/dL (70-99) 150 mg/dL (70-99) 113 mg/dL (70-99) 112 mg/dL (70-99) Test 03/24/17 05:50 White Blood Count 15.0 x10^3/uL (4.0-11.0) Red Blood Count 3.23 x10^6/uL (4.30-5.70) Hemoglobin 10.5 g/dL (13.0-17.5) Hematocrit 30.8 % (39.0-53.0) Mean Corpuscular Volume 96 fL (79-100) Mean Corpuscular Hemoglobin 32 pg (25-35) Mean Corpuscular Hemoglobin Concent 34 g/dL (31-37) Red Cell Distribution Width 13.9 % (11.5-14.5) Platelet Count 83 x10^3/uL (140-400) Neutrophils (%) (Auto) 75 % (31-73) Lymphocytes (%) (Auto) 12 % (24-48) Monocytes (%) (Auto) 13 % (0-9) Eosinophils (%) (Auto) 0 % (0-3) Basophils (%) (Auto) 0 % (0-3) Neutrophils # (Auto) 11.2 x10^3uL (1.8-7.7) Lymphocytes # (Auto) 1.8 x10^3/uL (1.0-4.8) Monocytes # (Auto) 1.9 x10^3/uL (0.0-1.1) Eosinophils # (Auto) 0.0 x10^3/uL (0.0-0.7) Basophils # (Auto) 0.0 x10^3/uL (0.0-0.2) Prothrombin Time 15.8 SEC (11.7-14.0) Prothromb Time International Ratio 1.3 (0.8-1.1) Sodium Level 140 mmol/L (136-145) Potassium Level 4.5 mmol/L (3.5-5.1) Chloride Level 105 mmol/L (98-107) Carbon Dioxide Level 30 mmol/L (21-32) Anion Gap 5 (6-14) Blood Urea Nitrogen 21 mg/dL (8-26) Creatinine 0.9 mg/dL (0.7-1.3) Estimated GFR (Cockcroft-Gault) 87.9 Glucose Level 115 mg/dL (70-99) Calcium Level 8.0 mg/dL (8.5-10.1) Magnesium Level 2.0 mg/dL (1.8-2.4) Laboratory Tests Test 03/23/17 13:11 03/23/17 16:27 03/23/17 20:38 03/23/17 23:47 Glucose (Fingerstick) 134 mg/dL (70-99) 149 mg/dL (70-99) 150 mg/dL (70-99) 113 mg/dL (70-99) Test 03/24/17 04:08 03/24/17 05:50 Glucose (Fingerstick) 112 mg/dL (70-99) White Blood Count 15.0 x10^3/uL (4.0-11.0) Red Blood Count 3.23 x10^6/uL (4.30-5.70) Hemoglobin 10.5 g/dL (13.0-17.5) Hematocrit 30.8 % (39.0-53.0) Mean Corpuscular Volume 96 fL (79-100) Mean Corpuscular Hemoglobin 32 pg (25-35) Mean Corpuscular Hemoglobin Concent 34 g/dL (31-37) Red Cell Distribution Width 13.9 % (11.5-14.5) Platelet Count 83 x10^3/uL (140-400) Neutrophils (%) (Auto) 75 % (31-73) Lymphocytes (%) (Auto) 12 % (24-48) Monocytes (%) (Auto) 13 % (0-9) Eosinophils (%) (Auto) 0 % (0-3) Basophils (%) (Auto) 0 % (0-3) Neutrophils # (Auto) 11.2 x10^3uL (1.8-7.7) Lymphocytes # (Auto) 1.8 x10^3/uL (1.0-4.8) Monocytes # (Auto) 1.9 x10^3/uL (0.0-1.1) Eosinophils # (Auto) 0.0 x10^3/uL (0.0-0.7) Basophils # (Auto) 0.0 x10^3/uL (0.0-0.2) Prothrombin Time 15.8 SEC (11.7-14.0) Prothromb Time International Ratio 1.3 (0.8-1.1) Sodium Level 140 mmol/L (136-145) Potassium Level 4.5 mmol/L (3.5-5.1) Chloride Level 105 mmol/L (98-107) Carbon Dioxide Level 30 mmol/L (21-32) Anion Gap 5 (6-14) Blood Urea Nitrogen 21 mg/dL (8-26) Creatinine 0.9 mg/dL (0.7-1.3) Estimated GFR (Cockcroft-Gault) 87.9 Glucose Level 115 mg/dL (70-99) Calcium Level 8.0 mg/dL (8.5-10.1) Magnesium Level 2.0 mg/dL (1.8-2.4) Medications Current Medications Potassium Chloride 70 meq/ Sodium Bicarbonate 12.5 meq/Lidocaine HCl 24 ml/ Parenteral Electrolytes 571.5 ml @ 571.5 mls/ hr 1X PERIOP ONCE IRR Last administered on 03/22/17 09:30; Start 03/22/17 at 06:00; Stop 03/22/17 at 06:59 ; Status DC Potassium Chloride 15 meq/ Sodium Bicarbonate 12.5 meq/Parenteral Electrolytes 520 ml @ 520 mls/hr 1X PERIOP ONCE IRR Last administered on 03/22/17 09:30; Start 03/22/17 at 06:00; Stop 03/22/17 at 06:59; Status DC Ondansetron HCl (Zofran) 4 mg PRN Q6HRS PRN IV NAUSEA/VOMITING; Start 03/22/17 at 07:00; Stop 03/22/17 at 18:00; Status DC Fentanyl Citrate (Fentanyl 2ml Vial) 25 mcg PRN Q5MIN PRN IV MILD PAIN; Start 03/22/17 at 07:00; Stop 03/22/17 at 18:00; Status DC Fentanyl Citrate (Fentanyl 2ml Vial) 50 mcg PRN Q5MIN PRN IV MODERATE PAIN; Start 03/22/17 at 07:00; Stop 03/22/17 at 18:00; Status DC Morphine Sulfate 1 mg PRN Q10MIN PRN IV SEVERE PAIN; Start 03/22/17 at 07:00; Stop 03/22/17 at 18:00; Status DC Ringer's Solution 1,000 ml @ 30 mls/hr Q24H IV Last administered on 03/22/17 06:59; Start 03/22/17 at 07:00; Stop 03/22/17 at 18:59; Status DC Lidocaine HCl 2 ml PRN 1X PRN ID PRIOR TO IV START Last administered on 07:02; Start 03/22/17 at 07:00; Stop 03/22/17 at 18:00; Status DC Hydromorphone HCl (Dilaudid) 0.5 mg PRN Q10MIN PRN IV SEV PAIN, Second choice; Start 03/22/17 at 07:00; Stop 03/22/17 at 18:00; Status DC Prochlorperazine Edisylate (Compazine) 5 mg PACU PRN PRN IV NAUSEA, MRX1; Start 03/22/17 at 07:00; Stop 03/22/17 at 18:00; Status DC Cefazolin Sodium/ Dextrose 50 ml @ 100 mls/hr 1X PREOP PRN IV Prior to Surgery Last administered on 03/22/17t 12:00; Start 03/22/17 at 08:00; Stop at 06:57; Status DC Metoprolol Tartrate (Lopressor) 25 mg 1X ONCE PO ; Start 03/22/17 at 06:00; Stop 03/22/17 at 06:01; Status DC Cellulose 1 each STK-MED ONCE .ROUTE ; Start 03/22/17 at 07:04; Stop 03/22/17 at 07:05; Status DC Gelatin (Gelfoam Size 100) 1 each STK-MED ONCE .ROUTE ; Start 03/22/17 at 07:04 ; Stop 03/22/17 at 07:05; Status DC Mineral Oil (Muri-Lube) 10 ml STK-MED ONCE MC Last administered on 03/22/17t 11 :55; Start 03/22/17 at 07:04; Stop 03/22/17 at 07:05; Status DC Thrombin 20,000 unit STK-MED ONCE TP ; Start 03/22/17 at 07:04; Stop 03/22/17 at 07:05; Status DC Cellulose 1 each STK-MED ONCE .ROUTE ; Start 03/22/17 at 07:05; Stop 03/22/17 at 07:06; Status DC Nicardipine HCl 50 mg/Sodium Chloride 270 ml @ 27 mls/hr CONT PRN IV SEE I/O RECORD; Start 03/22/17 at 07:15; Stop 03/23/17 at 07:15; Status DC Midazolam HCl (Versed) 2 mg STK-MED ONCE .ROUTE ; Start 03/22/17 at 07:09; Stop 03/22/17 at 07:10; Status DC Rocuronium Salineno (Zemuron) 100 mg STK-MED ONCE .ROUTE ; Start 03/22/17 at 07: 09; Stop 03/22/17 at 07:10; Status DC Sufentanil Citrate (Sufenta) 100 mcg STK-MED ONCE .ROUTE ; Start 03/22/17 at 07: 09; Stop 03/22/17 at 07:10; Status DC Aminocaproic Acid (Amicar) 5,000 mg STK-MED ONCE IV ; Start 03/22/17 at 07:10; Stop 03/22/17 at 07:11; Status DC Aminocaproic Acid (Amicar) 5,000 mg STK-MED ONCE IV ; Start 03/22/17 at 07:10; Stop 03/22/17 at 07:11; Status DC Aminocaproic Acid (Amicar) 5,000 mg STK-MED ONCE IV ; Start 03/22/17 at 07:10; Stop 03/22/17 at 07:11; Status DC Nitroglycerin/ Dextrose 250 ml @ As Directed STK-MED ONCE IV ; Start 03/22/17 at 07:10; Stop 03/22/17 at 07:11; Status DC Heparin Sodium (Porcine) (Heparin Sodium) 10,000 unit STK-MED ONCE .ROUTE ; Start 03/22/17 at 07:10; Stop 03/22/17 at 07:11; Status DC Heparin Sodium (Porcine) (Heparin Sodium) 10,000 unit STK-MED ONCE .ROUTE ; Start 03/22/17 at 07:10; Stop 03/22/17 at 07:11; Status DC Heparin Sodium (Porcine) (Heparin Sodium) 10,000 unit STK-MED ONCE .ROUTE ; Start 03/22/17 at 07:11; Stop 03/22/17 at 07:12; Status DC Heparin Sodium (Porcine) (Heparin Sodium) 10,000 unit STK-MED ONCE .ROUTE ; Start 03/22/17 at 07:11; Stop 03/22/17 at 07:12; Status DC Dexamethasone Sodium Phosphate (Decadron) 20 mg STK-MED ONCE .ROUTE ; Start at 07:11; Stop 03/22/17 at 07:12; Status DC Etomidate (Amidate) 20 mg STK-MED ONCE IV ; Start 03/22/17 at 07:11; Stop at 07:12; Status DC Isoflurane (Isoflurane) 90 ml STK-MED ONCE IH ; Start 03/22/17 at 07:11; Stop at 07:12; Status DC Ephedrine Sulfate 50 mg STK-MED ONCE IV ; Start 03/22/17 at 07:28; Stop at 07:29; Status DC Fentanyl Citrate (Fentanyl 2ml Vial) 100 mcg STK-MED ONCE .ROUTE ; Start at 07:41; Stop 03/22/17 at 07:42; Status DC Rocuronium Salineno (Zemuron) 100 mg STK-MED ONCE .ROUTE ; Start 03/22/17 at 08: 48; Stop 03/22/17 at 08:49; Status DC Propofol 50 ml @ As Directed STK-MED ONCE IV ; Start 03/22/17 at 09:07; Stop at 09:08; Status DC Protamine Sulfate 50 mg STK-MED ONCE IV ; Start 03/22/17 at 09:17; Stop at 09:18; Status DC Protamine Sulfate 50 mg STK-MED ONCE IV ; Start 03/22/17 at 09:17; Stop at 09:18; Status DC Protamine Sulfate 50 mg STK-MED ONCE IV ; Start 03/22/17 at 09:17; Stop at 09:18; Status DC Protamine Sulfate 50 mg STK-MED ONCE IV ; Start 03/22/17 at 09:17; Stop at 09:18; Status DC Protamine Sulfate 50 mg STK-MED ONCE IV ; Start 03/22/17 at 09:17; Stop at 09:18; Status DC Protamine Sulfate 50 mg STK-MED ONCE IV ; Start 03/22/17 at 09:17; Stop at 09:18; Status DC Protamine Sulfate 50 mg STK-MED ONCE IV ; Start 03/22/17 at 09:20; Stop at 09:21; Status DC Protamine Sulfate 50 mg STK-MED ONCE IV ; Start 03/22/17 at 09:50; Stop at 09:51; Status DC Lidocaine HCl (Lidocaine Pf 2% Vial) 5 ml STK-MED ONCE .ROUTE ; Start 03/22/17 at 11:33; Stop 03/22/17 at 11:34; Status DC Lidocaine HCl (Lidocaine Pf 2% Vial) 5 ml STK-MED ONCE .ROUTE ; Start 03/22/17 at 11:33; Stop 03/22/17 at 11:34; Status DC Albumin Human 500 ml @ As Directed STK-MED ONCE IV ; Start 03/22/17 at 11:59; Stop 03/22/17 at 12:00; Status DC Clevidipine 100 ml @ 0 mls/hr CONT PRN IV PER PROTOCOL; Start 03/22/17 at 12:00 ; Stop 03/23/17 at 07:15; Status DC Lidocaine HCl (Lidocaine Pf 2% Vial) 5 ml STK-MED ONCE .ROUTE ; Start 03/22/17 at 12:08; Stop 03/22/17 at 12:09; Status DC Aminocaproic Acid (Amicar) 5,000 mg STK-MED ONCE IV ; Start 03/22/17 at 12:08; Stop 03/22/17 at 12:09; Status DC Mannitol (Mannitol) 12.5 g STK-MED ONCE .ROUTE ; Start 03/22/17 at 12:08; Stop 03/22/17 at 12:09; Status DC Calcium Chloride 1,000 mg STK-MED ONCE IV ; Start 03/22/17 at 12:08; Stop at 12:09; Status DC Albumin Human 100 ml @ As Directed STK-MED ONCE IV ; Start 03/22/17 at 12:08; Stop 03/22/17 at 12:09; Status DC Sodium Chloride (Normal Saline Flush) 3 ml PRN Q12HR PRN IV AFTER MEDS AND BLOOD DRAWS; Start 03/22/17 at 12:30 Ringer's Solution 1,000 ml @ 30 mls/hr Q24H IV Last administered on 03/23/17t 05:16; Start 03/22/17 at 12:21; Stop 03/23/17 at 07:15; Status DC Albumin Human 250 ml @ 60 mls/hr PRN Q4HRS PRN IV SEE I/O RECORD Last administered on 03/22/17t 19:10; Start 03/22/17 at 13:05; Stop 03/23/17 at 08:08 ; Status DC Insulin Human Regular 150 unit/ Sodium Chloride 151.5 ml @ 0 mls/hr CONT PRN PRN IV SEE I/O RECORD Last administered on 03/22/17 19:10; Start 03/22/17 at 12 :30 Dextrose (Dextrose 50%-Water Syringe) 25 gm PRN Q15MIN PRN IV LOW BLOOD SUGAR; Start 03/22/17 at 12:30 Info 1 ea CONT PRN PRN MC SEE COMMENTS; Start 03/22/17 at 12:30 Info 1 ea CONT PRN PRN MC SEE COMMENTS; Start 03/22/17 at 12:30 Magnesium Sulfate/ Dextrose 100 ml @ 100 mls/hr PRN DAILY PRN IV FOR MAG < 2.2 ; Start 03/22/17 at 12:30; Status Cancel Famotidine (Pepcid) 20 mg BID IVP Last administered on 03/23/17 21:11; Start 03/22/17 at 21:00 Ondansetron HCl (Zofran) 4 mg PRN Q4HRS PRN IV NAUSEA/VOMITING Last administered on 03/24/17 08:16; Start 03/22/17 at 12:30 Morphine Sulfate 2 mg PRN Q1HR PRN IV PAIN Last administered on 03/23/17 11:30 ; Start 03/22/17 at 12:30 Acetaminophen (Tylenol) 650 mg PRN Q4HRS PRN PO MILD PAIN / TEMP; Start at 12:30 Acetaminophen (Acetaminophen Supp) 650 mg PRN Q4HRS PRN [place] MILD PAIN / TEMP; Start 03/22/17 at 12:30 Meperidine HCl (Demerol) 12.5 mg PRN Q15MIN PRN IV SHIVERING; Start 03/22/17 at 12:30; Stop 03/23/17 at 07:15; Status DC Propofol 100 ml @ 0 mls/hr CONT PRN PRN IV POSTOP SEDATION UNTIL EXTUBATE Last administered on 03/22/17 16:51; Start 03/22/17 at 12:30; Stop 03/23/17 at 07:15 ; Status DC Senna/Docusate Sodium (Senna Plus) 1 tab BID PO Last administered on 03/23/17 21:10; Start 03/22/17 at 21:00 Bisacodyl (Dulcolax Supp) 10 mg PRN DAILY PRN [place] NO BOWEL MOVEMENT; Start 03/22 at 12:30 Albuterol Sulfate (Ventolin Neb Soln) 2.5 mg PRN Q4HRS PRN NEB SHORTNESS OF BREATH; Start 03/22/17 at 12:30 Metoprolol Tartrate (Lopressor) 25 mg BID PO Last administered on 03/23/17 21: 11; Start 03/23/17 at 09:00; Status Future hold Oxycodone/ Acetaminophen (Percocet 5/325) 1 tab PRN Q4HRS PRN PO MILD PAIN Last administered on 03/23/17 12:15; Start 03/22/17 at 12:30 Oxycodone/ Acetaminophen (Percocet 5/325) 2 tab PRN Q4HRS PRN PO MODERATE PAIN , SEVERE PAIN Last administered on 03/24/17 04:16; Start 03/22/17 at 12:30 Cefazolin Sodium/ Dextrose 50 ml @ 100 mls/hr Q8H IV ; Start 03/22/17 at 14:30 ; Stop 03/22/17 at 14:30; Status DC Aspirin (Albert Aspirin) 325 mg DAILYWBKFT PO Last administered on 03/23/17 08: 31; Start 03/23/17 at 08:00 Aspirin (Aspirin) 300 mg DAILY [place] ; Start 03/23/17 at 09:00; Stop 03/23/17 at 09 :00; Status DC Amiodarone HCl (Cordarone) 400 mg BID PO Last administered on 03/23/17 21:11; Start 03/22/17 at 21:00 Warfarin Sodium (Coumadin) 5 mg DAILY16 PO Last administered on 03/23/17 18:37 ; Start 03/22/17 at 16:00 Warfarin Sodium (Coumadin Per Physician) 1 each PRN DAILY PRN MC SEE COMMENTS Last administered on 03/24/17 08:32; Start 03/22/17 at 13:30 Cefazolin Sodium/ Dextrose 50 ml @ 100 mls/hr Q8H IV Last administered on 03/24 04:06; Start 03/22/17 at 20:00; Stop 03/24/17 at 04:01; Status DC Magnesium Sulfate/ Dextrose 50 ml @ 25 mls/hr 1X ONCE IV Last administered on 03/23/17t 09:11; Start 03/23/17 at 09:00; Stop 03/23/17 at 10:59; Status DC Furosemide (Lasix) 40 mg 1X ONCE IVP ; Start 03/24/17 at 09:00; Stop 03/24/17 at 09:01 Active Scripts Active Losartan Potassium 50 Mg Tablet 50 Mg PO DAILY Reported Multi-Day Vitamins (Multivitamin) 1 Each Tablet 1 Tab PO DAILY Glucosamine Complex-Msm Cap (Gluc Moss/Msm/Magnesium/Vit C) 1 Each Capsule 1 Each PO DAILY Metoprolol Tartrate 25 Mg Tablet 12.5 Mg PO BID Vitals/I & O Vital Sign - Last 24 Hours 03/23/17 03/23/17 03/23/17 03/23/17 09:00 09:00 09:14 10:00 Pulse 77 68 83 66 Resp 17 19 B/P (MAP) 90/66 117/71 (86) 112/75 113/68 (83) Pulse Ox 96 96 O2 Delivery Nasal Cannula Nasal Cannula O2 Flow Rate 3.0 3.0 03/23/17 03/23/17 03/23/17 03/23/17 11:00 11:30 11:40 11:41 Pulse 64 Resp 18 B/P (MAP) 121/72 (88) Pulse Ox 97 96 96 96 O2 Delivery Nasal Cannula Nasal Cannula Nasal Cannula Nasal Cannula O2 Flow Rate 3.0 4.0 4.0 4.0 03/23/17 03/23/17 03/23/17 03/23/17 12:00 12:00 12:00 12:15 Temp 99.0 99.0 Pulse 70 Resp 16 B/P (MAP) 127/71 (89) Pulse Ox 97 97 96 O2 Delivery Nasal Cannula Nasal Cannula Nasal Cannula Nasal Cannula O2 Flow Rate 3.0 3.0 3.0 4.0 03/23/17 03/23/17 03/23/17 03/23/17 13:00 13:15 14:00 15:00 Pulse 77 78 Resp 11 B/P (MAP) 111/62 (78) 90/66 (74) 97/62 (74) Pulse Ox 97 97 94 O2 Delivery Nasal Cannula Nasal Cannula Nasal Cannula Nasal Cannula O2 Flow Rate 3.0 3.0 3.0 03/23/17 03/23/17 03/23/17 03/23/17 16:00 16:00 17:00 18:00 Pulse 86 90 78 Resp 11 23 33 B/P (MAP) 89/61 (70) 100/72 (81) 121/66 (84) Pulse Ox 95 94 94 O2 Delivery Nasal Cannula Nasal Cannula Nasal Cannula Nasal Cannula O2 Flow Rate 3.0 3.0 3.0 3.0 03/23/17 03/23/17 03/23/17 03/23/17 19:00 19:30 20:00 21:00 Temp 98.0 98.0 Pulse 91 85 83 Resp 25 17 17 B/P (MAP) 118/68 (85) 100/65 (77) 116/53 (74) Pulse Ox 94 94 100 O2 Delivery Nasal Cannula Nasal Cannula Nasal Cannula Nasal Cannula O2 Flow Rate 3.0 3.0 3.0 3.0 03/23/17 03/23/17 03/23/17 03/23/17 21:10 21:11 21:11 22:00 Pulse 85 89 84 Resp 29 16 B/P (MAP) 140/86 140/86 101/67 (78) Pulse Ox 98 97 O2 Delivery Nasal Cannula Nasal Cannula O2 Flow Rate 3.0 3.0 03/23/17 03/24/17 03/24/17 03/24/17 23:00 00:00 00:00 01:00 Temp 98.5 98.5 Pulse 75 72 66 Resp 15 14 12 B/P (MAP) 100/66 (77) 90/64 (73) 82/57 (65) Pulse Ox 97 97 97 O2 Delivery Nasal Cannula Nasal Cannula Nasal Cannula Nasal Cannula O2 Flow Rate 3.0 3.0 3.0 3.0 03/24/17 03/24/17 03/24/17 03/24/17 02:00 03:00 04:00 04:00 Temp 98.6 98.6 Pulse 68 76 73 Resp 21 23 16 B/P (MAP) 98/58 (71) 87/63 (71) 101/67 (78) Pulse Ox 97 96 97 O2 Delivery Nasal Cannula Nasal Cannula Nasal Cannula Nasal Cannula O2 Flow Rate 3.0 3.0 3.0 3.0 7/20/17 03/24/17 03/24/17 03/24/17 04:16 05:00 05:15 06:00 Pulse 74 67 Resp 25 16 16 18 B/P (MAP) 95/67 (76) 95/56 (69) Pulse Ox 96 95 97 94 O2 Delivery Nasal Cannula Nasal Cannula Nasal Cannula Nasal Cannula O2 Flow Rate 3.0 3.0 3.0 3.0 Intake and Output 03/23/17 03/23/17 03/24/17 15:00 23:00 07:00 Intake Total 800 ml 840 ml 622.5 ml Output Total 345 ml 650 ml 200 ml Balance 455 ml 190 ml 422.5 ml FAUSTINO PARK MD Mar 24, 2017 08:52
[2017-03-24] MEDS: METOPROLOL TART IMMED RELEASE 25 MG TABLET. PO SCH ×2 (09:00→20:58)
[2017-03-24] MEDS ORDERED: FUROSEMIDE 40 MG/4 ML VIAL. IVP ONE (09:00)
--- NOTE | 2017-03-24 09:00 | PDOC2 ---
CONSULT Date of Consult Date of Consult DATE: 03/24/17 TIME: 08:59 Reason for Consult Reason for Consult: primary care Past Medical History Cardiovascular: HTN, Other (bicuspid aortic valve with aortic insufficiency) Current Medications Current Medications Current Medications Potassium Chloride 70 meq/ Sodium Bicarbonate 12.5 meq/Lidocaine HCl 24 ml/ Parenteral Electrolytes 571.5 ml @ 571.5 mls/ hr 1X PERIOP ONCE IRR Last administered on 03/22/17 09:30; Start 03/22/17 at 06:00; Stop 03/22/17 at 06:59 ; Status DC Potassium Chloride 15 meq/ Sodium Bicarbonate 12.5 meq/Parenteral Electrolytes 520 ml @ 520 mls/hr 1X PERIOP ONCE IRR Last administered on 03/22/17 09:30; Start 03/22/17 at 06:00; Stop 03/22/17 at 06:59; Status DC Ondansetron HCl (Zofran) 4 mg PRN Q6HRS PRN IV NAUSEA/VOMITING; Start 03/22/17 at 07:00; Stop 03/22/17 at 18:00; Status DC Fentanyl Citrate (Fentanyl 2ml Vial) 25 mcg PRN Q5MIN PRN IV MILD PAIN; Start 03/22/17 at 07:00; Stop 03/22/17 at 18:00; Status DC Fentanyl Citrate (Fentanyl 2ml Vial) 50 mcg PRN Q5MIN PRN IV MODERATE PAIN; Start 03/22/17 at 07:00; Stop 03/22/17 at 18:00; Status DC Morphine Sulfate 1 mg PRN Q10MIN PRN IV SEVERE PAIN; Start 03/22/17 at 07:00; Stop 03/22/17 at 18:00; Status DC Ringer's Solution 1,000 ml @ 30 mls/hr Q24H IV Last administered on 03/22/17 06:59; Start 03/22/17 at 07:00; Stop 03/22/17 at 18:59; Status DC Lidocaine HCl 2 ml PRN 1X PRN ID PRIOR TO IV START Last administered on 07:02; Start 03/22/17 at 07:00; Stop 03/22/17 at 18:00; Status DC Hydromorphone HCl (Dilaudid) 0.5 mg PRN Q10MIN PRN IV SEV PAIN, Second choice; Start 03/22/17 at 07:00; Stop 03/22/17 at 18:00; Status DC Prochlorperazine Edisylate (Compazine) 5 mg PACU PRN PRN IV NAUSEA, MRX1; Start 03/22/17 at 07:00; Stop 03/22/17 at 18:00; Status DC Cefazolin Sodium/ Dextrose 50 ml @ 100 mls/hr 1X PREOP PRN IV Prior to Surgery Last administered on 03/22/17t 12:00; Start 03/22/17 at 08:00; Stop at 06:57; Status DC Metoprolol Tartrate (Lopressor) 25 mg 1X ONCE PO ; Start 03/22/17 at 06:00; Stop 03/22/17 at 06:01; Status DC Cellulose 1 each STK-MED ONCE .ROUTE ; Start 03/22/17 at 07:04; Stop 03/22/17 at 07:05; Status DC Gelatin (Gelfoam Size 100) 1 each STK-MED ONCE .ROUTE ; Start 03/22/17 at 07:04 ; Stop 03/22/17 at 07:05; Status DC Mineral Oil (Muri-Lube) 10 ml STK-MED ONCE MC Last administered on 03/22/17t 11 :55; Start 03/22/17 at 07:04; Stop 03/22/17 at 07:05; Status DC Thrombin 20,000 unit STK-MED ONCE TP ; Start 03/22/17 at 07:04; Stop 03/22/17 at 07:05; Status DC Cellulose 1 each STK-MED ONCE .ROUTE ; Start 03/22/17 at 07:05; Stop 03/22/17 at 07:06; Status DC Nicardipine HCl 50 mg/Sodium Chloride 270 ml @ 27 mls/hr CONT PRN IV SEE I/O RECORD; Start 03/22/17 at 07:15; Stop 03/23/17 at 07:15; Status DC Midazolam HCl (Versed) 2 mg STK-MED ONCE .ROUTE ; Start 03/22/17 at 07:09; Stop 03/22/17 at 07:10; Status DC Rocuronium [place] (Zemuron) 100 mg STK-MED ONCE .ROUTE ; Start 03/22/17 at 07: 09; Stop 03/22/17 at 07:10; Status DC Sufentanil Citrate (Sufenta) 100 mcg STK-MED ONCE .ROUTE ; Start 03/22/17 at 07: 09; Stop 03/22/17 at 07:10; Status DC Aminocaproic Acid (Amicar) 5,000 mg STK-MED ONCE IV ; Start 03/22/17 at 07:10; Stop 03/22/17 at 07:11; Status DC Aminocaproic Acid (Amicar) 5,000 mg STK-MED ONCE IV ; Start 03/22/17 at 07:10; Stop 03/22/17 at 07:11; Status DC Aminocaproic Acid (Amicar) 5,000 mg STK-MED ONCE IV ; Start 03/22/17 at 07:10; Stop 03/22/17 at 07:11; Status DC Nitroglycerin/ Dextrose 250 ml @ As Directed STK-MED ONCE IV ; Start 03/22/17 at 07:10; Stop 03/22/17 at 07:11; Status DC Heparin Sodium (Porcine) (Heparin Sodium) 10,000 unit STK-MED ONCE .ROUTE ; Start 03/22/17 at 07:10; Stop 03/22/17 at 07:11; Status DC Heparin Sodium (Porcine) (Heparin Sodium) 10,000 unit STK-MED ONCE .ROUTE ; Start 03/22/17 at 07:10; Stop 03/22/17 at 07:11; Status DC Heparin Sodium (Porcine) (Heparin Sodium) 10,000 unit STK-MED ONCE .ROUTE ; Start 03/22/17 at 07:11; Stop 03/22/17 at 07:12; Status DC Heparin Sodium (Porcine) (Heparin Sodium) 10,000 unit STK-MED ONCE .ROUTE ; Start 03/22/17 at 07:11; Stop 03/22/17 at 07:12; Status DC Dexamethasone Sodium Phosphate (Decadron) 20 mg STK-MED ONCE .ROUTE ; Start at 07:11; Stop 03/22/17 at 07:12; Status DC Etomidate (Amidate) 20 mg STK-MED ONCE IV ; Start 03/22/17 at 07:11; Stop at 07:12; Status DC Isoflurane (Isoflurane) 90 ml STK-MED ONCE IH ; Start 03/22/17 at 07:11; Stop at 07:12; Status DC Ephedrine Sulfate 50 mg STK-MED ONCE IV ; Start 03/22/17 at 07:28; Stop at 07:29; Status DC Fentanyl Citrate (Fentanyl 2ml Vial) 100 mcg STK-MED ONCE .ROUTE ; Start at 07:41; Stop 03/22/17 at 07:42; Status DC Rocuronium [place] (Zemuron) 100 mg STK-MED ONCE .ROUTE ; Start 03/22/17 at 08: 48; Stop 03/22/17 at 08:49; Status DC Propofol 50 ml @ As Directed STK-MED ONCE IV ; Start 03/22/17 at 09:07; Stop at 09:08; Status DC Protamine Sulfate 50 mg STK-MED ONCE IV ; Start 03/22/17 at 09:17; Stop at 09:18; Status DC Protamine Sulfate 50 mg STK-MED ONCE IV ; Start 03/22/17 at 09:17; Stop at 09:18; Status DC Protamine Sulfate 50 mg STK-MED ONCE IV ; Start 03/22/17 at 09:17; Stop at 09:18; Status DC Protamine Sulfate 50 mg STK-MED ONCE IV ; Start 03/22/17 at 09:17; Stop at 09:18; Status DC Protamine Sulfate 50 mg STK-MED ONCE IV ; Start 03/22/17 at 09:17; Stop at 09:18; Status DC Protamine Sulfate 50 mg STK-MED ONCE IV ; Start 03/22/17 at 09:17; Stop at 09:18; Status DC Protamine Sulfate 50 mg STK-MED ONCE IV ; Start 03/22/17 at 09:20; Stop at 09:21; Status DC Protamine Sulfate 50 mg STK-MED ONCE IV ; Start 03/22/17 at 09:50; Stop at 09:51; Status DC Lidocaine HCl (Lidocaine Pf 2% Vial) 5 ml STK-MED ONCE .ROUTE ; Start 03/22/17 at 11:33; Stop 03/22/17 at 11:34; Status DC Lidocaine HCl (Lidocaine Pf 2% Vial) 5 ml STK-MED ONCE .ROUTE ; Start 03/22/17 at 11:33; Stop 03/22/17 at 11:34; Status DC Albumin Human 500 ml @ As Directed STK-MED ONCE IV ; Start 03/22/17 at 11:59; Stop 03/22/17 at 12:00; Status DC Clevidipine 100 ml @ 0 mls/hr CONT PRN IV PER PROTOCOL; Start 03/22/17 at 12:00 ; Stop 03/23/17 at 07:15; Status DC Lidocaine HCl (Lidocaine Pf 2% Vial) 5 ml STK-MED ONCE .ROUTE ; Start 03/22/17 at 12:08; Stop 03/22/17 at 12:09; Status DC Aminocaproic Acid (Amicar) 5,000 mg STK-MED ONCE IV ; Start 03/22/17 at 12:08; Stop 03/22/17 at 12:09; Status DC Mannitol (Mannitol) 12.5 g STK-MED ONCE .ROUTE ; Start 03/22/17 at 12:08; Stop 03/22/17 at 12:09; Status DC Calcium Chloride 1,000 mg STK-MED ONCE IV ; Start 03/22/17 at 12:08; Stop at 12:09; Status DC Albumin Human 100 ml @ As Directed STK-MED ONCE IV ; Start 03/22/17 at 12:08; Stop 03/22/17 at 12:09; Status DC Sodium Chloride (Normal Saline Flush) 3 ml PRN Q12HR PRN IV AFTER MEDS AND BLOOD DRAWS; Start 03/22/17 at 12:30 Ringer's Solution 1,000 ml @ 30 mls/hr Q24H IV Last administered on 03/23/17t 05:16; Start 03/22/17 at 12:21; Stop 03/23/17 at 07:15; Status DC Albumin Human 250 ml @ 60 mls/hr PRN Q4HRS PRN IV SEE I/O RECORD Last administered on 03/22/17t 19:10; Start 03/22/17 at 13:05; Stop 03/23/17 at 08:08 ; Status DC Insulin Human Regular 150 unit/ Sodium Chloride 151.5 ml @ 0 mls/hr CONT PRN PRN IV SEE I/O RECORD Last administered on 03/22/17 19:10; Start 03/22/17 at 12 :30 Dextrose (Dextrose 50%-Water Syringe) 25 gm PRN Q15MIN PRN IV LOW BLOOD SUGAR; Start 03/22/17 at 12:30 Info 1 ea CONT PRN PRN MC SEE COMMENTS; Start 03/22/17 at 12:30 Info 1 ea CONT PRN PRN MC SEE COMMENTS; Start 03/22/17 at 12:30 Magnesium Sulfate/ Dextrose 100 ml @ 100 mls/hr PRN DAILY PRN IV FOR MAG < 2.2 ; Start 03/22/17 at 12:30; Status Cancel Famotidine (Pepcid) 20 mg BID IVP Last administered on 03/23/17 21:11; Start 03/22/17 at 21:00 Ondansetron HCl (Zofran) 4 mg PRN Q4HRS PRN IV NAUSEA/VOMITING Last administered on 03/24/17 08:16; Start 03/22/17 at 12:30 Morphine Sulfate 2 mg PRN Q1HR PRN IV PAIN Last administered on 03/23/17 11:30 ; Start 03/22/17 at 12:30 Acetaminophen (Tylenol) 650 mg PRN Q4HRS PRN PO MILD PAIN / TEMP; Start at 12:30 Acetaminophen (Acetaminophen Supp) 650 mg PRN Q4HRS PRN MD MILD PAIN / TEMP; Start 03/22/17 at 12:30 Meperidine HCl (Demerol) 12.5 mg PRN Q15MIN PRN IV SHIVERING; Start 03/22/17 at 12:30; Stop 03/23/17 at 07:15; Status DC Propofol 100 ml @ 0 mls/hr CONT PRN PRN IV POSTOP SEDATION UNTIL EXTUBATE Last administered on 03/22/17 16:51; Start 03/22/17 at 12:30; Stop 03/23/17 at 07:15 ; Status DC Senna/Docusate Sodium (Senna Plus) 1 tab BID PO Last administered on 03/23/17 21:10; Start 03/22/17 at 21:00 Bisacodyl (Dulcolax Supp) 10 mg PRN DAILY PRN MD NO BOWEL MOVEMENT; Start 03/22 at 12:30 Albuterol Sulfate (Ventolin Neb Soln) 2.5 mg PRN Q4HRS PRN NEB SHORTNESS OF BREATH; Start 03/22/17 at 12:30 Metoprolol Tartrate (Lopressor) 25 mg BID PO Last administered on 03/23/17 21: 11; Start 03/23/17 at 09:00; Status Future hold Oxycodone/ Acetaminophen (Percocet 5/325) 1 tab PRN Q4HRS PRN PO MILD PAIN Last administered on 03/23/17 12:15; Start 03/22/17 at 12:30 Oxycodone/ Acetaminophen (Percocet 5/325) 2 tab PRN Q4HRS PRN PO MODERATE PAIN , SEVERE PAIN Last administered on 03/24/17 04:16; Start 03/22/17 at 12:30 Cefazolin Sodium/ Dextrose 50 ml @ 100 mls/hr Q8H IV ; Start 03/22/17 at 14:30 ; Stop 03/22/17 at 14:30; Status DC Aspirin (Pubster Aspirin) 325 mg DAILYWBKFT PO Last administered on 03/23/17 08: 31; Start 03/23/17 at 08:00 Aspirin (Aspirin) 300 mg DAILY MD ; Start 03/23/17 at 09:00; Stop 03/23/17 at 09 :00; Status DC Amiodarone HCl (Cordarone) 400 mg BID PO Last administered on 03/23/17 21:11; Start 03/22/17 at 21:00 Warfarin Sodium (Coumadin) 5 mg DAILY16 PO Last administered on 03/23/17 18:37 ; Start 03/22/17 at 16:00 Warfarin Sodium (Coumadin Per Physician) 1 each PRN DAILY PRN MC SEE COMMENTS Last administered on 03/24/17 08:32; Start 03/22/17 at 13:30 Cefazolin Sodium/ Dextrose 50 ml @ 100 mls/hr Q8H IV Last administered on 03/24 04:06; Start 03/22/17 at 20:00; Stop 03/24/17 at 04:01; Status DC Magnesium Sulfate/ Dextrose 50 ml @ 25 mls/hr 1X ONCE IV Last administered on 03/23/17t 09:11; Start 03/23/17 at 09:00; Stop 03/23/17 at 10:59; Status DC Furosemide (Lasix) 40 mg 1X ONCE IVP ; Start 03/24/17 at 09:00; Stop 03/24/17 at 09:01 Active Scripts Active Losartan Potassium 50 Mg Tablet 50 Mg PO DAILY Reported Multi-Day Vitamins (Multivitamin) 1 Each Tablet 1 Tab PO DAILY Glucosamine Complex-Msm Cap (Gluc Moss/Msm/Magnesium/Vit C) 1 Each Capsule 1 Each PO DAILY Metoprolol Tartrate 25 Mg Tablet 12.5 Mg PO BID Allergies Allergies: Coded Allergies: No Known Drug Allergies (Unverified , 03/22/17) Vitals VITALS Vital Signs Date Time Temp Pulse Resp B/P (MAP) Pulse Ox O2 Delivery O2 Flow Rate FiO2 03/24/17 06:00 67 18 95/56 (69) 94 Nasal Cannula 3.0 03/24/17 04:00 98.6 98.6 Labs Labs Laboratory Tests Test 03/22/17 09:09 03/22/17 09:37 03/22/17 09:40 03/22/17 10:11 Activated Clotting Time 529 SEC (90-125) 526 SEC (90-125) Bedside Hemoglobin (Calculated) 9.9 g/dL (14-18) 11.2 g/dL (14-18) Bedside Hematocrit 29 % (37-52) 33 % (37-52) Bedside Arterial pH 7.44 (7.35-7.45) 7.40 (7.35-7.45) Bedside Arterial pCO2 33 mmHg (35-45) 40 mmHg (35-45) Bedside Arterial pO2 332 mmHg (75-100) 254 mmHg (75-100) Bedside Arterial HCO3 23 mmol/L (21-28) 24 mmol/L (21-28) Bedside Arterial Total CO2 24 mmol/L (21-32) 26 mmol/L (21-32) Arterial Bld O2 Saturation (Measur) 100 % (95-99) 100 % (95-99) Bedside Arterial Blood Base Excess -1 mmol/L (0-3) 0 mmol/L (0-3) Bedside FiO2 70.0 70.0 Bedside Sodium 137 mmol/L (135-145) 139 mmol/L (135-145) Bedside Potassium 5.4 mmol/L (3.5-5.0) 4.8 mmol/L (3.5-5.0) Glucose Level 105 mg/dL (70-99) 140 mg/dL (70-99) Bedside Ionized Calcium (Kylie) 1.00 mmol/L (1.13-1.32) 1.12 mmol/L (1.13-1.32) Test 03/22/17 10:13 03/22/17 10:41 03/22/17 10:43 03/22/17 11:12 Activated Clotting Time 501 SEC (90-125) 444 SEC (90-125) Bedside Hemoglobin (Calculated) 10.9 g/dL (14-18) 11.2 g/dL (14-18) Bedside Hematocrit 32 % (37-52) 33 % (37-52) Bedside Arterial pH 7.40 (7.35-7.45) 7.39 (7.35-7.45) Bedside Arterial pCO2 41 mmHg (35-45) 41 mmHg (35-45) Bedside Arterial pO2 250 mmHg (75-100) 237 mmHg (75-100) Bedside Arterial HCO3 25 mmol/L (21-28) 25 mmol/L (21-28) Bedside Arterial Total CO2 27 mmol/L (21-32) 26 mmol/L (21-32) Arterial Bld O2 Saturation (Measur) 100 % (95-99) 100 % (95-99) Bedside Arterial Blood Base Excess 1 mmol/L (0-3) 0 mmol/L (0-3) Bedside FiO2 70.0 80.0 Bedside Sodium 139 mmol/L (135-145) 140 mmol/L (135-145) Bedside Potassium 5.0 mmol/L (3.5-5.0) 5.1 mmol/L (3.5-5.0) Glucose Level 166 mg/dL (70-99) 156 mg/dL (70-99) Bedside Ionized Calcium (Kylie) 1.12 mmol/L (1.13-1.32) 1.13 mmol/L (1.13-1.32) Test 03/22/17 11:14 03/22/17 12:07 03/22/17 12:09 03/22/17 12:10 Activated Clotting Time 465 SEC (90-125) 118 SEC (90-125) Bedside Hemoglobin (Calculated) 10.2 g/dL (14-18) Bedside Hematocrit 30 % (37-52) Bedside Arterial pH 7.44 (7.35-7.45) Bedside Arterial pCO2 33 mmHg (35-45) Bedside Arterial pO2 287 mmHg (75-100) Bedside Arterial HCO3 22 mmol/L (21-28) Bedside Arterial Total CO2 24 mmol/L (21-32) Arterial Bld O2 Saturation (Measur) 100 % (95-99) Bedside Arterial Blood Base Excess -2 mmol/L (0-3) Bedside FiO2 100.0 Bedside Sodium 138 mmol/L (135-145) Bedside Potassium 4.0 mmol/L (3.5-5.0) Glucose Level 140 mg/dL (70-99) Bedside Ionized Calcium (Kylie) 1.90 mmol/L (1.13-1.32) White Blood Count 11.2 x10^3/uL (4.0-11.0) Hemoglobin 10.7 g/dL (13.0-17.5) Hematocrit 31.4 % (39.0-53.0) Platelet Count 104 x10^3/uL (140-400) Prothrombin Time 16.9 SEC (11.7-14.0) Prothromb Time International Ratio 1.5 (0.8-1.1) Activated Partial Thromboplast Time 27 SEC (24-38) Fibrinogen 267 mg/dL (200-440) Test 03/22/17 12:46 03/22/17 13:50 03/22/17 13:54 03/22/17 13:55 Bedside Hemoglobin (Calculated) 11.2 g/dL (14-18) Bedside Hematocrit 33 % (37-52) Bedside Arterial pH 7.43 (7.35-7.45) Bedside Arterial pCO2 34 mmHg (35-45) Bedside Arterial pO2 423 mmHg (75-100) Bedside Arterial HCO3 23 mmol/L (21-28) Bedside Arterial Total CO2 24 mmol/L (21-32) Arterial Bld O2 Saturation (Measur) 100 % (95-99) Bedside Arterial Blood Base Excess -2 mmol/L (0-3) Bedside FiO2 100.0 Bedside Sodium 140 mmol/L (135-145) Bedside Potassium 3.9 mmol/L (3.5-5.0) Glucose Level 134 mg/dL (70-99) 150 mg/dL (70-99) Bedside Ionized Calcium (Kylie) 1.65 mmol/L (1.13-1.32) O2 Saturation 99 % (92-99) Arterial Blood pH 7.40 (7.35-7.45) Arterial Blood pCO2 at Patient Temp 34 mmHg (35-46) Arterial Blood pO2 at Patient Temp 282 mmHg (75-108) Arterial Blood HCO3 21 mmol/L (21-28) Arterial Blood Base Excess -3 mmol/L (-3-3) Oxyhemoglobin 98.4 % Methemoglobin 0.3 % (0.0-1.9) Carbon Monoxide, Quantitative 0.1 % (0.0-1.9) FiO2 100 Glucose (Fingerstick) 152 mg/dL (70-99) White Blood Count 12.1 x10^3/uL (4.0-11.0) Red Blood Count 3.79 x10^6/uL (4.30-5.70) Hemoglobin 12.2 g/dL (13.0-17.5) Hematocrit 35.7 % (39.0-53.0) Mean Corpuscular Volume 94 fL (79-100) Mean Corpuscular Hemoglobin 32 pg (25-35) Mean Corpuscular Hemoglobin Concent 34 g/dL (31-37) Red Cell Distribution Width 13.6 % (11.5-14.5) Platelet Count 93 x10^3/uL (140-400) Prothrombin Time 15.4 SEC (11.7-14.0) Prothromb Time International Ratio 1.3 (0.8-1.1) Activated Partial Thromboplast Time 29 SEC (24-38) Sodium Level 144 mmol/L (136-145) Potassium Level 4.3 mmol/L (3.5-5.1) Chloride Level 110 mmol/L (98-107) Carbon Dioxide Level 21 mmol/L (21-32) Anion Gap 13 (6-14) Blood Urea Nitrogen 21 mg/dL (8-26) Creatinine 1.0 mg/dL (0.7-1.3) Estimated GFR (Cockcroft-Gault) 77.9 Calcium Level 10.5 mg/dL (8.5-10.1) Magnesium Level 2.6 mg/dL (1.8-2.4) Test 03/22/17 15:23 03/22/17 18:00 03/22/17 18:38 03/22/17 20:04 Glucose (Fingerstick) 154 mg/dL (70-99) 165 mg/dL (70-99) 173 mg/dL (70-99) White Blood Count 11.6 x10^3/uL (4.0-11.0) Red Blood Count 3.53 x10^6/uL (4.30-5.70) Hemoglobin 11.4 g/dL (13.0-17.5) Hematocrit 33.5 % (39.0-53.0) Mean Corpuscular Volume 95 fL (79-100) Mean Corpuscular Hemoglobin 32 pg (25-35) Mean Corpuscular Hemoglobin Concent 34 g/dL (31-37) Red Cell Distribution Width 14.1 % (11.5-14.5) Platelet Count 93 x10^3/uL (140-400) Potassium Level 4.4 mmol/L (3.5-5.1) Magnesium Level 2.3 mg/dL (1.8-2.4) Test 03/22/17 20:18 03/22/17 21:04 03/22/17 22:14 03/22/17 23:12 O2 Saturation 94 % (92-99) Arterial Blood pH 7.36 (7.35-7.45) Arterial Blood pCO2 at Patient Temp 32 mmHg (35-46) Arterial Blood pO2 at Patient Temp 81 mmHg (75-108) Arterial Blood HCO3 18 mmol/L (21-28) Arterial Blood Base Excess -7 mmol/L (-3-3) FiO2 40 Glucose (Fingerstick) 170 mg/dL (70-99) 150 mg/dL (70-99) 150 mg/dL (70-99) Test 03/23/17 00:15 03/23/17 01:20 03/23/17 02:18 03/23/17 03:08 Glucose (Fingerstick) 132 mg/dL (70-99) 107 mg/dL (70-99) 145 mg/dL (70-99) 148 mg/dL (70-99) Test 03/23/17 04:14 03/23/17 05:20 03/23/17 06:24 03/23/17 13:11 Glucose (Fingerstick) 152 mg/dL (70-99) 134 mg/dL (70-99) 139 mg/dL (70-99) 134 mg/dL (70-99) White Blood Count 13.8 x10^3/uL (4.0-11.0) Red Blood Count 3.33 x10^6/uL (4.30-5.70) Hemoglobin 10.7 g/dL (13.0-17.5) Hematocrit 31.0 % (39.0-53.0) Mean Corpuscular Volume 93 fL (79-100) Mean Corpuscular Hemoglobin 32 pg (25-35) Mean Corpuscular Hemoglobin Concent 35 g/dL (31-37) Red Cell Distribution Width 13.8 % (11.5-14.5) Platelet Count 89 x10^3/uL (140-400) Prothrombin Time 15.6 SEC (11.7-14.0) Prothromb Time International Ratio 1.3 (0.8-1.1) Sodium Level 143 mmol/L (136-145) Potassium Level 4.4 mmol/L (3.5-5.1) Chloride Level 109 mmol/L (98-107) Carbon Dioxide Level 24 mmol/L (21-32) Anion Gap 10 (6-14) Blood Urea Nitrogen 23 mg/dL (8-26) Creatinine 0.9 mg/dL (0.7-1.3) Estimated GFR (Cockcroft-Gault) 87.9 Glucose Level 140 mg/dL (70-99) Calcium Level 8.5 mg/dL (8.5-10.1) Magnesium Level 1.9 mg/dL (1.8-2.4) Test 03/23/17 16:27 03/23/17 20:38 03/23/17 23:47 03/24/17 04:08 Glucose (Fingerstick) 149 mg/dL (70-99) 150 mg/dL (70-99) 113 mg/dL (70-99) 112 mg/dL (70-99) Test 03/24/17 05:50 White Blood Count 15.0 x10^3/uL (4.0-11.0) Red Blood Count 3.23 x10^6/uL (4.30-5.70) Hemoglobin 10.5 g/dL (13.0-17.5) Hematocrit 30.8 % (39.0-53.0) Mean Corpuscular Volume 96 fL (79-100) Mean Corpuscular Hemoglobin 32 pg (25-35) Mean Corpuscular Hemoglobin Concent 34 g/dL (31-37) Red Cell Distribution Width 13.9 % (11.5-14.5) Platelet Count 83 x10^3/uL (140-400) Neutrophils (%) (Auto) 75 % (31-73) Lymphocytes (%) (Auto) 12 % (24-48) Monocytes (%) (Auto) 13 % (0-9) Eosinophils (%) (Auto) 0 % (0-3) Basophils (%) (Auto) 0 % (0-3) Neutrophils # (Auto) 11.2 x10^3uL (1.8-7.7) Lymphocytes # (Auto) 1.8 x10^3/uL (1.0-4.8) Monocytes # (Auto) 1.9 x10^3/uL (0.0-1.1) Eosinophils # (Auto) 0.0 x10^3/uL (0.0-0.7) Basophils # (Auto) 0.0 x10^3/uL (0.0-0.2) Prothrombin Time 15.8 SEC (11.7-14.0) Prothromb Time International Ratio 1.3 (0.8-1.1) Sodium Level 140 mmol/L (136-145) Potassium Level 4.5 mmol/L (3.5-5.1) Chloride Level 105 mmol/L (98-107) Carbon Dioxide Level 30 mmol/L (21-32) Anion Gap 5 (6-14) Blood Urea Nitrogen 21 mg/dL (8-26) Creatinine 0.9 mg/dL (0.7-1.3) Estimated GFR (Cockcroft-Gault) 87.9 Glucose Level 115 mg/dL (70-99) Calcium Level 8.0 mg/dL (8.5-10.1) Magnesium Level 2.0 mg/dL (1.8-2.4) Laboratory Tests Test 03/23/17 13:11 03/23/17 16:27 03/23/17 20:38 03/23/17 23:47 Glucose (Fingerstick) 134 mg/dL (70-99) 149 mg/dL (70-99) 150 mg/dL (70-99) 113 mg/dL (70-99) Test 03/24/17 04:08 03/24/17 05:50 Glucose (Fingerstick) 112 mg/dL (70-99) White Blood Count 15.0 x10^3/uL (4.0-11.0) Red Blood Count 3.23 x10^6/uL (4.30-5.70) Hemoglobin 10.5 g/dL (13.0-17.5) Hematocrit 30.8 % (39.0-53.0) Mean Corpuscular Volume 96 fL (79-100) Mean Corpuscular Hemoglobin 32 pg (25-35) Mean Corpuscular Hemoglobin Concent 34 g/dL (31-37) Red Cell Distribution Width 13.9 % (11.5-14.5) Platelet Count 83 x10^3/uL (140-400) Neutrophils (%) (Auto) 75 % (31-73) Lymphocytes (%) (Auto) 12 % (24-48) Monocytes (%) (Auto) 13 % (0-9) Eosinophils (%) (Auto) 0 % (0-3) Basophils (%) (Auto) 0 % (0-3) Neutrophils # (Auto) 11.2 x10^3uL (1.8-7.7) Lymphocytes # (Auto) 1.8 x10^3/uL (1.0-4.8) Monocytes # (Auto) 1.9 x10^3/uL (0.0-1.1) Eosinophils # (Auto) 0.0 x10^3/uL (0.0-0.7) Basophils # (Auto) 0.0 x10^3/uL (0.0-0.2) Prothrombin Time 15.8 SEC (11.7-14.0) Prothromb Time International Ratio 1.3 (0.8-1.1) Sodium Level 140 mmol/L (136-145) Potassium Level 4.5 mmol/L (3.5-5.1) Chloride Level 105 mmol/L (98-107) Carbon Dioxide Level 30 mmol/L (21-32) Anion Gap 5 (6-14) Blood Urea Nitrogen 21 mg/dL (8-26) Creatinine 0.9 mg/dL (0.7-1.3) Estimated GFR (Cockcroft-Gault) 87.9 Glucose Level 115 mg/dL (70-99) Calcium Level 8.0 mg/dL (8.5-10.1) Magnesium Level 2.0 mg/dL (1.8-2.4) Assessment/Plan Assessment/Plan s/p thor AAA and bicuspid valve repair- on losartan/metop at home- labs ok, will follow ELINA MEIER MD Mar 24, 2017 09:00
[2017-03-24] MEDS: SENNOSIDES/DOCUSATE 8.6/50MG TABLET. PO SCH ×2 (09:51→20:58)
[2017-03-24] MEDS: AMIODARONE HCL 200 MG TABLET. PO SCH ×2 (09:52→20:57)
[2017-03-24] MEDS: ASPIRIN 325 MG TABLET PO SCH (09:53)
[2017-03-24] MEDS: FAMOTIDINE 20 MG/2 ML VIAL IVP SCH ×2 (09:54→20:57)
[2017-03-24] MEDS ORDERED: IV NORMAL SALINE 500ML BAG 500 ML IV ONE (11:00)
--- NOTE | 2017-03-24 12:25 | RAD ---
Indication postop. A single view of the chest was obtained. Comparison is made to an exam one day earlier. Postop changes are noted. [place] catheter seen previously has been replaced with a IJ catheter. Mediastinal tube has been removed. There is no congestive heart failure. Cardiomegaly is unchanged. An unexpected finding is not seen. IMPRESSION: Postop chest. No unexpected finding seen. Stable cardiomegaly
[2017-03-24] MEDS: WARFARIN 5 MG TABLET. PO SCH (16:33)
[2017-03-25 03:01] VITALS: BP 113/75
[2017-03-25 05:13] LABS: INR 2.4 (0.8-1.1)
[2017-03-25 08:00] VITALS: BP 107/68
--- NOTE | 2017-03-25 08:45 | PDOC ---
Provider Note Provider Note stable, no new probs- labs good- will follow ELINA MEIER MD Mar 25, 2017 08:45
[2017-03-25] MEDS: oxyCODONE/APAP 5/325 1 TAB TABLET PO PRN (09:17)
[2017-03-25] MEDS: ASPIRIN 325 MG TABLET PO SCH (09:33)
[2017-03-25] MEDS: METOPROLOL TART IMMED RELEASE 25 MG TABLET. PO SCH ×3 (09:36→21:25)
[2017-03-25] MEDS: AMIODARONE HCL 200 MG TABLET. PO SCH (10:33)
[2017-03-25] MEDS: SENNOSIDES/DOCUSATE 8.6/50MG TABLET. PO SCH ×2 (10:33→21:24)
[2017-03-25] MEDS: FAMOTIDINE 20 MG TABLET. PO SCH ×2 (10:36→21:24)
[2017-03-25 12:30] VITALS: BP 92/58
--- NOTE | 2017-03-25 12:34 | PDOC ---
PROGRESS NOTES Subjective Subjective Mr Higgins was resting in bed this AM. He doesn't have any chest pain. He does have some shortness of breath, and back pain. He is maintaining sinus rhythm Objective Objective Vital Signs Date Time Temp Pulse Resp B/P (MAP) Pulse Ox O2 Delivery O2 Flow Rate FiO2 03/25/17 10:33 74 107/68 03/25/17 10:17 18 95 Nasal Cannula 3.0 03/25/17 08:00 99.7 99.7 Intake and Output 03/25/17 07:00 Intake Total 820 ml Output Total 400 ml Balance 420 ml Intake Oral 820 ml Output Urine Total 400 ml Physical Exam Heart: Regular rate (and rhythm), Other (click) Extremities: No edema, Normal pulses (2/4 radial b/l) General: Alert, No acute distress Lungs: Clear to auscultation (b/l), Normal air movement Assessment Assessment Mr Higgins continues to maintain sinus rhythm, with no episodes of chest pain Change amiodarone dose to 200 mg QD Will continue to monitor cardiac status Home soon Comment Review of Relevant I have reviewed the following items bettina (where applicable) has been applied. Labs Laboratory Tests Test 03/23/17 13:11 03/23/17 16:27 03/23/17 20:38 03/23/17 23:47 Glucose (Fingerstick) 134 mg/dL (70-99) 149 mg/dL (70-99) 150 mg/dL (70-99) 113 mg/dL (70-99) Test 03/24/17 04:08 03/24/17 05:50 03/25/17 04:40 Glucose (Fingerstick) 112 mg/dL (70-99) White Blood Count 15.0 x10^3/uL (4.0-11.0) Red Blood Count 3.23 x10^6/uL (4.30-5.70) Hemoglobin 10.5 g/dL (13.0-17.5) Hematocrit 30.8 % (39.0-53.0) Mean Corpuscular Volume 96 fL (79-100) Mean Corpuscular Hemoglobin 32 pg (25-35) Mean Corpuscular Hemoglobin Concent 34 g/dL (31-37) Red Cell Distribution Width 13.9 % (11.5-14.5) Platelet Count 83 x10^3/uL (140-400) Neutrophils (%) (Auto) 75 % (31-73) Lymphocytes (%) (Auto) 12 % (24-48) Monocytes (%) (Auto) 13 % (0-9) Eosinophils (%) (Auto) 0 % (0-3) Basophils (%) (Auto) 0 % (0-3) Neutrophils # (Auto) 11.2 x10^3uL (1.8-7.7) Lymphocytes # (Auto) 1.8 x10^3/uL (1.0-4.8) Monocytes # (Auto) 1.9 x10^3/uL (0.0-1.1) Eosinophils # (Auto) 0.0 x10^3/uL (0.0-0.7) Basophils # (Auto) 0.0 x10^3/uL (0.0-0.2) Prothrombin Time 15.8 SEC (11.7-14.0) 25.0 SEC (11.7-14.0) Prothromb Time International Ratio 1.3 (0.8-1.1) 2.4 (0.8-1.1) Sodium Level 140 mmol/L (136-145) Potassium Level 4.5 mmol/L (3.5-5.1) Chloride Level 105 mmol/L (98-107) Carbon Dioxide Level 30 mmol/L (21-32) Anion Gap 5 (6-14) Blood Urea Nitrogen 21 mg/dL (8-26) Creatinine 0.9 mg/dL (0.7-1.3) Estimated GFR (Cockcroft-Gault) 87.9 Glucose Level 115 mg/dL (70-99) Calcium Level 8.0 mg/dL (8.5-10.1) Magnesium Level 2.0 mg/dL (1.8-2.4) Laboratory Tests Test 03/25/17 04:40 Prothrombin Time 25.0 SEC (11.7-14.0) Prothromb Time International Ratio 2.4 (0.8-1.1) Medications Current Medications Potassium Chloride 70 meq/ Sodium Bicarbonate 12.5 meq/Lidocaine HCl 24 ml/ Parenteral Electrolytes 571.5 ml @ 571.5 mls/ hr 1X PERIOP ONCE IRR Last administered on 03/22/17t 09:30; Start 03/22/17 at 06:00; Stop 03/22/17 at 06:59 ; Status DC Potassium Chloride 15 meq/ Sodium Bicarbonate 12.5 meq/Parenteral Electrolytes 520 ml @ 520 mls/hr 1X PERIOP ONCE IRR Last administered on 03/22/17 09:30; Start 03/22/17 at 06:00; Stop 03/22/17 at 06:59; Status DC Ondansetron HCl (Zofran) 4 mg PRN Q6HRS PRN IV NAUSEA/VOMITING; Start 03/22/17 at 07:00; Stop 03/22/17 at 18:00; Status DC Fentanyl Citrate (Fentanyl 2ml Vial) 25 mcg PRN Q5MIN PRN IV MILD PAIN; Start 03/22/17 at 07:00; Stop 03/22/17 at 18:00; Status DC Fentanyl Citrate (Fentanyl 2ml Vial) 50 mcg PRN Q5MIN PRN IV MODERATE PAIN; Start 03/22/17 at 07:00; Stop 03/22/17 at 18:00; Status DC Morphine Sulfate 1 mg PRN Q10MIN PRN IV SEVERE PAIN; Start 03/22/17 at 07:00; Stop 03/22/17 at 18:00; Status DC Ringer's Solution 1,000 ml @ 30 mls/hr Q24H IV Last administered on 03/22/17 06:59; Start 03/22/17 at 07:00; Stop 03/22/17 at 18:59; Status DC Lidocaine HCl 2 ml PRN 1X PRN ID PRIOR TO IV START Last administered on 07:02; Start 03/22/17 at 07:00; Stop 03/22/17 at 18:00; Status DC Hydromorphone HCl (Dilaudid) 0.5 mg PRN Q10MIN PRN IV SEV PAIN, Second choice; Start 03/22/17 at 07:00; Stop 03/22/17 at 18:00; Status DC Prochlorperazine Edisylate (Compazine) 5 mg PACU PRN PRN IV NAUSEA, MRX1; Start 03/22/17 at 07:00; Stop 03/22/17 at 18:00; Status DC Cefazolin Sodium/ Dextrose 50 ml @ 100 mls/hr 1X PREOP PRN IV Prior to Surgery Last administered on 7/18/17at 12:00; Start 03/22/17 at 08:00; Stop at 06:57; Status DC Metoprolol Tartrate (Lopressor) 25 mg 1X ONCE PO ; Start 03/22/17 at 06:00; Stop 03/22/17 at 06:01; Status DC Cellulose 1 each STK-MED ONCE .ROUTE ; Start 03/22/17 at 07:04; Stop 03/22/17 at 07:05; Status DC Gelatin (Gelfoam Size 100) 1 each STK-MED ONCE .ROUTE ; Start 03/22/17 at 07:04 ; Stop 03/22/17 at 07:05; Status DC Mineral Oil (Muri-Lube) 10 ml STK-MED ONCE MC Last administered on 03/22/17t 11 :55; Start 03/22/17 at 07:04; Stop 03/22/17 at 07:05; Status DC Thrombin 20,000 unit STK-MED ONCE TP ; Start 03/22/17 at 07:04; Stop 03/22/17 at 07:05; Status DC Cellulose 1 each STK-MED ONCE .ROUTE ; Start 03/22/17 at 07:05; Stop 03/22/17 at 07:06; Status DC Nicardipine HCl 50 mg/Sodium Chloride 270 ml @ 27 mls/hr CONT PRN IV SEE I/O RECORD; Start 03/22/17 at 07:15; Stop 03/23/17 at 07:15; Status DC Midazolam HCl (Versed) 2 mg STK-MED ONCE .ROUTE ; Start 03/22/17 at 07:09; Stop 03/22/17 at 07:10; Status DC Rocuronium Glynn (Zemuron) 100 mg STK-MED ONCE .ROUTE ; Start 03/22/17 at 07: 09; Stop 03/22/17 at 07:10; Status DC Sufentanil Citrate (Sufenta) 100 mcg STK-MED ONCE .ROUTE ; Start 03/22/17 at 07: 09; Stop 03/22/17 at 07:10; Status DC Aminocaproic Acid (Amicar) 5,000 mg STK-MED ONCE IV ; Start 03/22/17 at 07:10; Stop 03/22/17 at 07:11; Status DC Aminocaproic Acid (Amicar) 5,000 mg STK-MED ONCE IV ; Start 03/22/17 at 07:10; Stop 03/22/17 at 07:11; Status DC Aminocaproic Acid (Amicar) 5,000 mg STK-MED ONCE IV ; Start 03/22/17 at 07:10; Stop 03/22/17 at 07:11; Status DC Nitroglycerin/ Dextrose 250 ml @ As Directed STK-MED ONCE IV ; Start 03/22/17 at 07:10; Stop 03/22/17 at 07:11; Status DC Heparin Sodium (Porcine) (Heparin Sodium) 10,000 unit STK-MED ONCE .ROUTE ; Start 03/22/17 at 07:10; Stop 03/22/17 at 07:11; Status DC Heparin Sodium (Porcine) (Heparin Sodium) 10,000 unit STK-MED ONCE .ROUTE ; Start 03/22/17 at 07:10; Stop 03/22/17 at 07:11; Status DC Heparin Sodium (Porcine) (Heparin Sodium) 10,000 unit STK-MED ONCE .ROUTE ; Start 03/22/17 at 07:11; Stop 03/22/17 at 07:12; Status DC Heparin Sodium (Porcine) (Heparin Sodium) 10,000 unit STK-MED ONCE .ROUTE ; Start 03/22/17 at 07:11; Stop 03/22/17 at 07:12; Status DC Dexamethasone Sodium Phosphate (Decadron) 20 mg STK-MED ONCE .ROUTE ; Start at 07:11; Stop 03/22/17 at 07:12; Status DC Etomidate (Amidate) 20 mg STK-MED ONCE IV ; Start 03/22/17 at 07:11; Stop at 07:12; Status DC Isoflurane (Isoflurane) 90 ml STK-MED ONCE IH ; Start 03/22/17 at 07:11; Stop at 07:12; Status DC Ephedrine Sulfate 50 mg STK-MED ONCE IV ; Start 03/22/17 at 07:28; Stop at 07:29; Status DC Fentanyl Citrate (Fentanyl 2ml Vial) 100 mcg STK-MED ONCE .ROUTE ; Start at 07:41; Stop 03/22/17 at 07:42; Status DC Rocuronium Glynn (Zemuron) 100 mg STK-MED ONCE .ROUTE ; Start 03/22/17 at 08: 48; Stop 03/22/17 at 08:49; Status DC Propofol 50 ml @ As Directed STK-MED ONCE IV ; Start 03/22/17 at 09:07; Stop at 09:08; Status DC Protamine Sulfate 50 mg STK-MED ONCE IV ; Start 03/22/17 at 09:17; Stop at 09:18; Status DC Protamine Sulfate 50 mg STK-MED ONCE IV ; Start 03/22/17 at 09:17; Stop at 09:18; Status DC Protamine Sulfate 50 mg STK-MED ONCE IV ; Start 03/22/17 at 09:17; Stop at 09:18; Status DC Protamine Sulfate 50 mg STK-MED ONCE IV ; Start 03/22/17 at 09:17; Stop at 09:18; Status DC Protamine Sulfate 50 mg STK-MED ONCE IV ; Start 03/22/17 at 09:17; Stop at 09:18; Status DC Protamine Sulfate 50 mg STK-MED ONCE IV ; Start 03/22/17 at 09:17; Stop at 09:18; Status DC Protamine Sulfate 50 mg STK-MED ONCE IV ; Start 03/22/17 at 09:20; Stop at 09:21; Status DC Protamine Sulfate 50 mg STK-MED ONCE IV ; Start 03/22/17 at 09:50; Stop at 09:51; Status DC Lidocaine HCl (Lidocaine Pf 2% Vial) 5 ml STK-MED ONCE .ROUTE ; Start 03/22/17 at 11:33; Stop 03/22/17 at 11:34; Status DC Lidocaine HCl (Lidocaine Pf 2% Vial) 5 ml STK-MED ONCE .ROUTE ; Start 03/22/17 at 11:33; Stop 03/22/17 at 11:34; Status DC Albumin Human 500 ml @ As Directed STK-MED ONCE IV ; Start 03/22/17 at 11:59; Stop 03/22/17 at 12:00; Status DC Clevidipine 100 ml @ 0 mls/hr CONT PRN IV PER PROTOCOL; Start 03/22/17 at 12:00 ; Stop 03/23/17 at 07:15; Status DC Lidocaine HCl (Lidocaine Pf 2% Vial) 5 ml STK-MED ONCE .ROUTE ; Start 03/22/17 at 12:08; Stop 03/22/17 at 12:09; Status DC Aminocaproic Acid (Amicar) 5,000 mg STK-MED ONCE IV ; Start 03/22/17 at 12:08; Stop 03/22/17 at 12:09; Status DC Mannitol (Mannitol) 12.5 g STK-MED ONCE .ROUTE ; Start 03/22/17 at 12:08; Stop 03/22/17 at 12:09; Status DC Calcium Chloride 1,000 mg STK-MED ONCE IV ; Start 03/22/17 at 12:08; Stop at 12:09; Status DC Albumin Human 100 ml @ As Directed STK-MED ONCE IV ; Start 03/22/17 at 12:08; Stop 03/22/17 at 12:09; Status DC Sodium Chloride (Normal Saline Flush) 3 ml PRN Q12HR PRN IV AFTER MEDS AND BLOOD DRAWS; Start 03/22/17 at 12:30 Ringer's Solution 1,000 ml @ 30 mls/hr Q24H IV Last administered on 03/23/17 05:16; Start 03/22/17 at 12:21; Stop 03/23/17 at 07:15; Status DC Albumin Human 250 ml @ 60 mls/hr PRN Q4HRS PRN IV SEE I/O RECORD Last administered on 03/22/17 19:10; Start 03/22/17 at 13:05; Stop 03/23/17 at 08:08 ; Status DC Insulin Human Regular 150 unit/ Sodium Chloride 151.5 ml @ 0 mls/hr CONT PRN PRN IV SEE I/O RECORD Last administered on 03/22/17 19:10; Start 03/22/17 at 12 :30; Stop 03/24/17 at 19:09; Status DC Dextrose (Dextrose 50%-Water Syringe) 25 gm PRN Q15MIN PRN IV LOW BLOOD SUGAR; Start 03/22/17 at 12:30; Stop 03/24/17 at 19:09; Status DC Info 1 ea CONT PRN PRN MC SEE COMMENTS; Start 03/22/17 at 12:30; Stop 03/24/17 at 19:09; Status DC Info 1 ea CONT PRN PRN MC SEE COMMENTS; Start 03/22/17 at 12:30; Stop 03/24/17 at 19:09; Status DC Magnesium Sulfate/ Dextrose 100 ml @ 100 mls/hr PRN DAILY PRN IV FOR MAG < 2.2 ; Start 03/22/17 at 12:30; Status Cancel Famotidine (Pepcid) 20 mg BID IVP Last administered on 03/24/17 20:57; Start 03/22/17 at 21:00; Stop 03/25/17 at 09:33; Status DC Ondansetron HCl (Zofran) 4 mg PRN Q4HRS PRN IV NAUSEA/VOMITING Last administered on 03/24/17 08:16; Start 03/22/17 at 12:30 Morphine Sulfate 2 mg PRN Q1HR PRN IV PAIN Last administered on 03/23/17 11:30 ; Start 03/22/17 at 12:30; Stop 03/24/17 at 19:09; Status DC Acetaminophen (Tylenol) 650 mg PRN Q4HRS PRN PO MILD PAIN / TEMP; Start at 12:30 Acetaminophen (Acetaminophen Supp) 650 mg PRN Q4HRS PRN ND MILD PAIN / TEMP; Start 03/22/17 at 12:30; Stop 03/25/17 at 11:46; Status DC Meperidine HCl (Demerol) 12.5 mg PRN Q15MIN PRN IV SHIVERING; Start 03/22/17 at 12:30; Stop 03/23/17 at 07:15; Status DC Propofol 100 ml @ 0 mls/hr CONT PRN PRN IV POSTOP SEDATION UNTIL EXTUBATE Last administered on 03/22/17 16:51; Start 03/22/17 at 12:30; Stop 03/23/17 at 07:15 ; Status DC Senna/Docusate Sodium (Senna Plus) 1 tab BID PO Last administered on 03/25/17 10:33; Start 03/22/17 at 21:00 Bisacodyl (Dulcolax Supp) 10 mg PRN DAILY PRN ND NO BOWEL MOVEMENT; Start 03/22 at 12:30 Albuterol Sulfate (Ventolin Neb Soln) 2.5 mg PRN Q4HRS PRN NEB SHORTNESS OF BREATH; Start 03/22/17 at 12:30 Metoprolol Tartrate (Lopressor) 25 mg BID PO Last administered on 03/25/17 09: 36; Start 03/23/17 at 09:00; Status Future hold Oxycodone/ Acetaminophen (Percocet 5/325) 1 tab PRN Q4HRS PRN PO MILD PAIN Last administered on 03/23/17 12:15; Start 03/22/17 at 12:30 Oxycodone/ Acetaminophen (Percocet 5/325) 2 tab PRN Q4HRS PRN PO MODERATE PAIN , SEVERE PAIN Last administered on 03/25/17 09:17; Start 03/22/17 at 12:30 Cefazolin Sodium/ Dextrose 50 ml @ 100 mls/hr Q8H IV ; Start 03/22/17 at 14:30 ; Stop 03/22/17 at 14:30; Status DC Aspirin (Albert Aspirin) 325 mg DAILYWBKFT PO Last administered on 03/25/17 09: 33; Start 03/23/17 at 08:00 Aspirin (Aspirin) 300 mg DAILY ND ; Start 03/23/17 at 09:00; Stop 03/23/17 at 09 :00; Status DC Amiodarone HCl (Cordarone) 400 mg BID PO Last administered on 03/25/17 10:33; Start 03/22/17 at 21:00 Warfarin Sodium (Coumadin) 5 mg DAILY16 PO Last administered on 03/24/17 16:33 ; Start 03/22/17 at 16:00 Warfarin Sodium (Coumadin Per Physician) 1 each PRN DAILY PRN MC SEE COMMENTS Last administered on 03/25/17 09:32; Start 03/22/17 at 13:30 Cefazolin Sodium/ Dextrose 50 ml @ 100 mls/hr Q8H IV Last administered on 03/24 04:06; Start 03/22/17 at 20:00; Stop 03/24/17 at 04:01; Status DC Magnesium Sulfate/ Dextrose 50 ml @ 25 mls/hr 1X ONCE IV Last administered on 03/23/17 09:11; Start 03/23/17 at 09:00; Stop 03/23/17 at 10:59; Status DC Furosemide (Lasix) 40 mg 1X ONCE IVP ; Start 03/24/17 at 09:00; Stop 03/24/17 at 09:01; Status DC Sodium Chloride 500 ml @ 500 mls/hr 1X ONCE IV ; Start 03/24/17 at 11:00; Stop 03/24/17 at 19:09; Status DC Famotidine (Pepcid) 20 mg BID PO Last administered on 03/25/17t 10:36; Start at 10:00 Active Scripts Active Losartan Potassium 50 Mg Tablet 50 Mg PO DAILY Reported Multi-Day Vitamins (Multivitamin) 1 Each Tablet 1 Tab PO DAILY Glucosamine Complex-Msm Cap (Gluc Moss/Msm/Magnesium/Vit C) 1 Each Capsule 1 Each PO DAILY Metoprolol Tartrate 25 Mg Tablet 12.5 Mg PO BID Vitals/I & O Vital Sign - Last 24 Hours 03/24/17 03/24/17 03/24/17 03/24/17 12:52 16:00 16:00 17:00 Temp 98.0 97.6 98.0 97.6 Pulse 79 74 Resp 22 22 B/P (MAP) 110/71 (84) 115/77 (90) Pulse Ox 96 97 96 O2 Delivery Nasal Cannula Nasal Cannula Nasal Cannula Nasal Cannula O2 Flow Rate 3.0 3.0 3.0 3.0 03/24/17 03/24/17 03/24/17 03/24/17 20:00 20:04 20:57 20:58 Temp 98.3 98.3 Pulse 83 83 83 Resp 18 B/P (MAP) 107/68 (81) 107/68 107/68 Pulse Ox 94 O2 Delivery Nasal Cannula Nasal Cannula O2 Flow Rate 2.0 2.0 03/24/17 03/25/17 03/25/17 03/25/17 23:09 03:01 08:00 09:17 Temp 99.1 98.0 99.7 99.1 98.0 99.7 Pulse 75 76 81 Resp 20 18 24 18 B/P (MAP) 91/60 (70) 113/75 (88) 107/68 (81) Pulse Ox 95 98 24 98 O2 Delivery Nasal Cannula Nasal Cannula Nasal Cannula Nasal Cannula O2 Flow Rate 3.0 2.0 2.0 3.0 03/25/17 03/25/17 03/25/17 09:36 10:17 10:33 Pulse 74 74 Resp 18 B/P (MAP) 107/68 107/68 Pulse Ox 95 O2 Delivery Nasal Cannula O2 Flow Rate 3.0 Intake and Output 03/24/17 03/24/17 03/25/17 15:00 23:00 07:00 Intake Total 220 ml 600 ml Output Total 400 ml Balance 220 ml 200 ml FAUSTINO PARK MD Mar 25, 2017 12:34
--- NOTE | 2017-03-25 12:48 | RAD ---
INDICATION: POST OP COMPARISON: 1 day prior FINDINGS: Single view of chest obtained. Enlarged cardiac silhouette with poststernotomy changes. The left mid to lower lung is obscured by the cardiac silhouette. No definite new region of focal airspace consolidation. IMPRESSION: Enlarged cardiac silhouette with postoperative changes. No definite new region of focal airspace consolidation.
--- NOTE | 2017-03-25 13:38 | PATHOLOGY ---
PATHOLOGY REPORT * * * * * * * * FINAL DIAGNOSIS: A. Aortic valve replacement: - Bicuspid aortic valve showing focal fibrous thickening. B. Segments of aorta and adventitial tissue, aortic root aneurysm repair: - Consistent with aortic aneurysm. COMMENT: Sections of the aortic tissue show no significant inflammatory infiltrate and no evidence of cystic medial necrosis. There is no evidence of dissection. (JPM:pit; 03/25/2017) REPORT ELECTRONICALLY SIGNED BY: Suhail Nunez M.D. DATE/TIME: 03/25/2017 13:37 * * * * * * * * GROSS PATHOLOGY: A. The specimen is received in formalin labeled "Fahad Zee, aortic valve leaflets". Received are two segments of white-grover rubbery tissue with multiple foci of calcifications measuring 4.2 x 3.8 x 0.4 cm in aggregate dimensions. The specimen is submitted representatively in cassette A1, following light decalcification. B. The specimen is received in formalin labeled "Fahad Zee, aorta", are multiple segments of pale grover vascular tissue measuring 6.6 x 6.5 x 3.5 cm in aggregate dimensions. The linings are smooth in appearance. The specimen is submitted representatively in cassette B1. (CAA; 03/23/2017) INITIAL CPT CODE(S): A; 14124, 04817 B; 11083 Professional services [place] [address] Technical services performed by [facility] at [address] [place] [address], [facility] [address] [address]. SPECIMEN(S) RECEIVED: A.Aortic valve leaflets B.Aorta CLINICAL HISTORY: Ascending aortic aneurysm PATIENT: FAHAD ZEE Sisi /AGE: 11 1960 (Age: 56) PATIENT #: [id number] ALT CASE #: SPECIMEN COLLECTION DATE: 03/22/2017 SPECIMEN RECEIVED DATE: 03/22/2017 [facility] - [address] [place] [address] - PHONE: [phone] * * * END OF REPORT * * *
[2017-03-25 14:39] VITALS: BP 94/41
--- NOTE | 2017-03-25 15:53 | PDOC ---
PROGRESS NOTES Subjective Subjective nauseated Objective Objective Vital Signs Date Time Temp Pulse Resp B/P (MAP) Pulse Ox O2 Delivery O2 Flow Rate FiO2 03/25/17 14:39 97.8 63 18 94/41 (58) 95 Room Air 97.8 03/25/17 10:17 3.0 Intake and Output 03/25/17 07:00 Intake Total 820 ml Output Total 400 ml Balance 420 ml Intake Oral 820 ml Output Urine Total 400 ml Physical Exam Abdomen: Normal bowel sounds, Soft Heart: Normal S1, Normal S2, Other (mechanical valvular click) Extremities: Normal pulses General: Alert, Oriented X3 HEENT: PERRLA Lungs: Clear to auscultation MUSCULOSKELETAL: No deformity Neuro: Normal speech Psych/Mental Status: Mental status NL, Mood NL Skin: No rashes, Other (sternal wound healing) Assessment Assessment 1. aortic root aneurysm with bicuspid aortic valve Aortic root replacement with 29 mm Mechanical Valved-Conduit, utilizing Bental Technique; POD #3 INR 2.4 today - 0.5 mg warfarin today wounds healing well; VSS stable with BP low normotensive amiodarone for afib prophylaxis - dose decreased earlier today - no atrial dysrhythmias on tele continuing to require O2 - may need O2 at discharge Comment Review of Relevant I have reviewed the following items bettina (where applicable) has been applied. Labs Laboratory Tests Test 03/23/17 16:27 03/23/17 20:38 03/23/17 23:47 03/24/17 04:08 Glucose (Fingerstick) 149 mg/dL (70-99) 150 mg/dL (70-99) 113 mg/dL (70-99) 112 mg/dL (70-99) Test 03/24/17 05:50 03/25/17 04:40 White Blood Count 15.0 x10^3/uL (4.0-11.0) Red Blood Count 3.23 x10^6/uL (4.30-5.70) Hemoglobin 10.5 g/dL (13.0-17.5) Hematocrit 30.8 % (39.0-53.0) Mean Corpuscular Volume 96 fL (79-100) Mean Corpuscular Hemoglobin 32 pg (25-35) Mean Corpuscular Hemoglobin Concent 34 g/dL (31-37) Red Cell Distribution Width 13.9 % (11.5-14.5) Platelet Count 83 x10^3/uL (140-400) Neutrophils (%) (Auto) 75 % (31-73) Lymphocytes (%) (Auto) 12 % (24-48) Monocytes (%) (Auto) 13 % (0-9) Eosinophils (%) (Auto) 0 % (0-3) Basophils (%) (Auto) 0 % (0-3) Neutrophils # (Auto) 11.2 x10^3uL (1.8-7.7) Lymphocytes # (Auto) 1.8 x10^3/uL (1.0-4.8) Monocytes # (Auto) 1.9 x10^3/uL (0.0-1.1) Eosinophils # (Auto) 0.0 x10^3/uL (0.0-0.7) Basophils # (Auto) 0.0 x10^3/uL (0.0-0.2) Prothrombin Time 15.8 SEC (11.7-14.0) 25.0 SEC (11.7-14.0) Prothromb Time International Ratio 1.3 (0.8-1.1) 2.4 (0.8-1.1) Sodium Level 140 mmol/L (136-145) Potassium Level 4.5 mmol/L (3.5-5.1) Chloride Level 105 mmol/L (98-107) Carbon Dioxide Level 30 mmol/L (21-32) Anion Gap 5 (6-14) Blood Urea Nitrogen 21 mg/dL (8-26) Creatinine 0.9 mg/dL (0.7-1.3) Estimated GFR (Cockcroft-Gault) 87.9 Glucose Level 115 mg/dL (70-99) Calcium Level 8.0 mg/dL (8.5-10.1) Magnesium Level 2.0 mg/dL (1.8-2.4) Laboratory Tests Test 03/25/17 04:40 Prothrombin Time 25.0 SEC (11.7-14.0) Prothromb Time International Ratio 2.4 (0.8-1.1) Medications Current Medications Potassium Chloride 70 meq/ Sodium Bicarbonate 12.5 meq/Lidocaine HCl 24 ml/ Parenteral Electrolytes 571.5 ml @ 571.5 mls/ hr 1X PERIOP ONCE IRR Last administered on 03/22/17 09:30; Start 03/22/17 at 06:00; Stop 03/22/17 at 06:59 ; Status DC Potassium Chloride 15 meq/ Sodium Bicarbonate 12.5 meq/Parenteral Electrolytes 520 ml @ 520 mls/hr 1X PERIOP ONCE IRR Last administered on 03/22/17 09:30; Start 03/22/17 at 06:00; Stop 03/22/17 at 06:59; Status DC Ondansetron HCl (Zofran) 4 mg PRN Q6HRS PRN IV NAUSEA/VOMITING; Start 03/22/17 at 07:00; Stop 03/22/17 at 18:00; Status DC Fentanyl Citrate (Fentanyl 2ml Vial) 25 mcg PRN Q5MIN PRN IV MILD PAIN; Start 03/22/17 at 07:00; Stop 03/22/17 at 18:00; Status DC Fentanyl Citrate (Fentanyl 2ml Vial) 50 mcg PRN Q5MIN PRN IV MODERATE PAIN; Start 03/22/17 at 07:00; Stop 03/22/17 at 18:00; Status DC Morphine Sulfate 1 mg PRN Q10MIN PRN IV SEVERE PAIN; Start 03/22/17 at 07:00; Stop 03/22/17 at 18:00; Status DC Ringer's Solution 1,000 ml @ 30 mls/hr Q24H IV Last administered on 03/22/17 06:59; Start 03/22/17 at 07:00; Stop 03/22/17 at 18:59; Status DC Lidocaine HCl 2 ml PRN 1X PRN ID PRIOR TO IV START Last administered on 07:02; Start 03/22/17 at 07:00; Stop 03/22/17 at 18:00; Status DC Hydromorphone HCl (Dilaudid) 0.5 mg PRN Q10MIN PRN IV SEV PAIN, Second choice; Start 03/22/17 at 07:00; Stop 03/22/17 at 18:00; Status DC Prochlorperazine Edisylate (Compazine) 5 mg PACU PRN PRN IV NAUSEA, MRX1; Start 03/22/17 at 07:00; Stop 03/22/17 at 18:00; Status DC Cefazolin Sodium/ Dextrose 50 ml @ 100 mls/hr 1X PREOP PRN IV Prior to Surgery Last administered on 03/22/17t 12:00; Start 03/22/17 at 08:00; Stop at 06:57; Status DC Metoprolol Tartrate (Lopressor) 25 mg 1X ONCE PO ; Start 03/22/17 at 06:00; Stop 03/22/17 at 06:01; Status DC Cellulose 1 each STK-MED ONCE .ROUTE ; Start 03/22/17 at 07:04; Stop 03/22/17 at 07:05; Status DC Gelatin (Gelfoam Size 100) 1 each STK-MED ONCE .ROUTE ; Start 03/22/17 at 07:04 ; Stop 03/22/17 at 07:05; Status DC Mineral Oil (Muri-Lube) 10 ml STK-MED ONCE MC Last administered on 03/22/17t 11 :55; Start 03/22/17 at 07:04; Stop 03/22/17 at 07:05; Status DC Thrombin 20,000 unit STK-MED ONCE TP ; Start 03/22/17 at 07:04; Stop 03/22/17 at 07:05; Status DC Cellulose 1 each STK-MED ONCE .ROUTE ; Start 03/22/17 at 07:05; Stop 03/22/17 at 07:06; Status DC Nicardipine HCl 50 mg/Sodium Chloride 270 ml @ 27 mls/hr CONT PRN IV SEE I/O RECORD; Start 03/22/17 at 07:15; Stop 03/23/17 at 07:15; Status DC Midazolam HCl (Versed) 2 mg STK-MED ONCE .ROUTE ; Start 03/22/17 at 07:09; Stop 03/22/17 at 07:10; Status DC Rocuronium Mcdermott (Zemuron) 100 mg STK-MED ONCE .ROUTE ; Start 03/22/17 at 07: 09; Stop 03/22/17 at 07:10; Status DC Sufentanil Citrate (Sufenta) 100 mcg STK-MED ONCE .ROUTE ; Start 03/22/17 at 07: 09; Stop 03/22/17 at 07:10; Status DC Aminocaproic Acid (Amicar) 5,000 mg STK-MED ONCE IV ; Start 03/22/17 at 07:10; Stop 03/22/17 at 07:11; Status DC Aminocaproic Acid (Amicar) 5,000 mg STK-MED ONCE IV ; Start 03/22/17 at 07:10; Stop 03/22/17 at 07:11; Status DC Aminocaproic Acid (Amicar) 5,000 mg STK-MED ONCE IV ; Start 03/22/17 at 07:10; Stop 03/22/17 at 07:11; Status DC Nitroglycerin/ Dextrose 250 ml @ As Directed STK-MED ONCE IV ; Start 03/22/17 at 07:10; Stop 03/22/17 at 07:11; Status DC Heparin Sodium (Porcine) (Heparin Sodium) 10,000 unit STK-MED ONCE .ROUTE ; Start 03/22/17 at 07:10; Stop 03/22/17 at 07:11; Status DC Heparin Sodium (Porcine) (Heparin Sodium) 10,000 unit STK-MED ONCE .ROUTE ; Start 03/22/17 at 07:10; Stop 03/22/17 at 07:11; Status DC Heparin Sodium (Porcine) (Heparin Sodium) 10,000 unit STK-MED ONCE .ROUTE ; Start 03/22/17 at 07:11; Stop 03/22/17 at 07:12; Status DC Heparin Sodium (Porcine) (Heparin Sodium) 10,000 unit STK-MED ONCE .ROUTE ; Start 03/22/17 at 07:11; Stop 03/22/17 at 07:12; Status DC Dexamethasone Sodium Phosphate (Decadron) 20 mg STK-MED ONCE .ROUTE ; Start at 07:11; Stop 03/22/17 at 07:12; Status DC Etomidate (Amidate) 20 mg STK-MED ONCE IV ; Start 03/22/17 at 07:11; Stop at 07:12; Status DC Isoflurane (Isoflurane) 90 ml STK-MED ONCE IH ; Start 03/22/17 at 07:11; Stop at 07:12; Status DC Ephedrine Sulfate 50 mg STK-MED ONCE IV ; Start 03/22/17 at 07:28; Stop at 07:29; Status DC Fentanyl Citrate (Fentanyl 2ml Vial) 100 mcg STK-MED ONCE .ROUTE ; Start at 07:41; Stop 03/22/17 at 07:42; Status DC Rocuronium Mcdermott (Zemuron) 100 mg STK-MED ONCE .ROUTE ; Start 03/22/17 at 08: 48; Stop 03/22/17 at 08:49; Status DC Propofol 50 ml @ As Directed STK-MED ONCE IV ; Start 03/22/17 at 09:07; Stop at 09:08; Status DC Protamine Sulfate 50 mg STK-MED ONCE IV ; Start 03/22/17 at 09:17; Stop at 09:18; Status DC Protamine Sulfate 50 mg STK-MED ONCE IV ; Start 03/22/17 at 09:17; Stop at 09:18; Status DC Protamine Sulfate 50 mg STK-MED ONCE IV ; Start 03/22/17 at 09:17; Stop at 09:18; Status DC Protamine Sulfate 50 mg STK-MED ONCE IV ; Start 03/22/17 at 09:17; Stop at 09:18; Status DC Protamine Sulfate 50 mg STK-MED ONCE IV ; Start 03/22/17 at 09:17; Stop at 09:18; Status DC Protamine Sulfate 50 mg STK-MED ONCE IV ; Start 03/22/17 at 09:17; Stop at 09:18; Status DC Protamine Sulfate 50 mg STK-MED ONCE IV ; Start 03/22/17 at 09:20; Stop at 09:21; Status DC Protamine Sulfate 50 mg STK-MED ONCE IV ; Start 03/22/17 at 09:50; Stop at 09:51; Status DC Lidocaine HCl (Lidocaine Pf 2% Vial) 5 ml STK-MED ONCE .ROUTE ; Start 03/22/17 at 11:33; Stop 03/22/17 at 11:34; Status DC Lidocaine HCl (Lidocaine Pf 2% Vial) 5 ml STK-MED ONCE .ROUTE ; Start 03/22/17 at 11:33; Stop 03/22/17 at 11:34; Status DC Albumin Human 500 ml @ As Directed STK-MED ONCE IV ; Start 03/22/17 at 11:59; Stop 03/22/17 at 12:00; Status DC Clevidipine 100 ml @ 0 mls/hr CONT PRN IV PER PROTOCOL; Start 03/22/17 at 12:00 ; Stop 03/23/17 at 07:15; Status DC Lidocaine HCl (Lidocaine Pf 2% Vial) 5 ml STK-MED ONCE .ROUTE ; Start 03/22/17 at 12:08; Stop 03/22/17 at 12:09; Status DC Aminocaproic Acid (Amicar) 5,000 mg STK-MED ONCE IV ; Start 03/22/17 at 12:08; Stop 03/22/17 at 12:09; Status DC Mannitol (Mannitol) 12.5 g STK-MED ONCE .ROUTE ; Start 03/22/17 at 12:08; Stop 03/22/17 at 12:09; Status DC Calcium Chloride 1,000 mg STK-MED ONCE IV ; Start 03/22/17 at 12:08; Stop at 12:09; Status DC Albumin Human 100 ml @ As Directed STK-MED ONCE IV ; Start 03/22/17 at 12:08; Stop 03/22/17 at 12:09; Status DC Sodium Chloride (Normal Saline Flush) 3 ml PRN Q12HR PRN IV AFTER MEDS AND BLOOD DRAWS; Start 03/22/17 at 12:30 Ringer's Solution 1,000 ml @ 30 mls/hr Q24H IV Last administered on 03/23/17 05:16; Start 03/22/17 at 12:21; Stop 03/23/17 at 07:15; Status DC Albumin Human 250 ml @ 60 mls/hr PRN Q4HRS PRN IV SEE I/O RECORD Last administered on 03/22/17 19:10; Start 03/22/17 at 13:05; Stop 03/23/17 at 08:08 ; Status DC Insulin Human Regular 150 unit/ Sodium Chloride 151.5 ml @ 0 mls/hr CONT PRN PRN IV SEE I/O RECORD Last administered on 03/22/17 19:10; Start 03/22/17 at 12 :30; Stop 03/24/17 at 19:09; Status DC Dextrose (Dextrose 50%-Water Syringe) 25 gm PRN Q15MIN PRN IV LOW BLOOD SUGAR; Start 03/22/17 at 12:30; Stop 03/24/17 at 19:09; Status DC Info 1 ea CONT PRN PRN MC SEE COMMENTS; Start 03/22/17 at 12:30; Stop 03/24/17 at 19:09; Status DC Info 1 ea CONT PRN PRN MC SEE COMMENTS; Start 03/22/17 at 12:30; Stop 03/24/17 at 19:09; Status DC Magnesium Sulfate/ Dextrose 100 ml @ 100 mls/hr PRN DAILY PRN IV FOR MAG < 2.2 ; Start 03/22/17 at 12:30; Status Cancel Famotidine (Pepcid) 20 mg BID IVP Last administered on 03/24/17 20:57; Start 03/22/17 at 21:00; Stop 03/25/17 at 09:33; Status DC Ondansetron HCl (Zofran) 4 mg PRN Q4HRS PRN IV NAUSEA/VOMITING Last administered on 03/24/17 08:16; Start 03/22/17 at 12:30 Morphine Sulfate 2 mg PRN Q1HR PRN IV PAIN Last administered on 03/23/17 11:30 ; Start 03/22/17 at 12:30; Stop 03/24/17 at 19:09; Status DC Acetaminophen (Tylenol) 650 mg PRN Q4HRS PRN PO MILD PAIN / TEMP; Start at 12:30 Acetaminophen (Acetaminophen Supp) 650 mg PRN Q4HRS PRN HI MILD PAIN / TEMP; Start 03/22/17 at 12:30; Stop 03/25/17 at 11:46; Status DC Meperidine HCl (Demerol) 12.5 mg PRN Q15MIN PRN IV SHIVERING; Start 03/22/17 at 12:30; Stop 03/23/17 at 07:15; Status DC Propofol 100 ml @ 0 mls/hr CONT PRN PRN IV POSTOP SEDATION UNTIL EXTUBATE Last administered on 03/22/17 16:51; Start 03/22/17 at 12:30; Stop 03/23/17 at 07:15 ; Status DC Senna/Docusate Sodium (Senna Plus) 1 tab BID PO Last administered on 03/25/17 10:33; Start 03/22/17 at 21:00 Bisacodyl (Dulcolax Supp) 10 mg PRN DAILY PRN HI NO BOWEL MOVEMENT; Start 03/22 at 12:30 Albuterol Sulfate (Ventolin Neb Soln) 2.5 mg PRN Q4HRS PRN NEB SHORTNESS OF BREATH; Start 03/22/17 at 12:30 Metoprolol Tartrate (Lopressor) 25 mg BID PO Last administered on 03/25/17 09: 36; Start 03/23/17 at 09:00; Status Future hold Oxycodone/ Acetaminophen (Percocet 5/325) 1 tab PRN Q4HRS PRN PO MILD PAIN Last administered on 03/23/17 12:15; Start 03/22/17 at 12:30 Oxycodone/ Acetaminophen (Percocet 5/325) 2 tab PRN Q4HRS PRN PO MODERATE PAIN , SEVERE PAIN Last administered on 03/25/17 09:17; Start 03/22/17 at 12:30 Cefazolin Sodium/ Dextrose 50 ml @ 100 mls/hr Q8H IV ; Start 03/22/17 at 14:30 ; Stop 03/22/17 at 14:30; Status DC Aspirin (Albert Aspirin) 325 mg DAILYWBKFT PO Last administered on 03/25/17 09: 33; Start 03/23/17 at 08:00 Aspirin (Aspirin) 300 mg DAILY HI ; Start 03/23/17 at 09:00; Stop 03/23/17 at 09 :00; Status DC Amiodarone HCl (Cordarone) 400 mg BID PO Last administered on 03/25/17 10:33; Start 03/22/17 at 21:00; Stop 03/25/17 at 14:14; Status DC Warfarin Sodium (Coumadin) 5 mg DAILY16 PO Last administered on 03/24/17 16:33 ; Start 03/22/17 at 16:00 Warfarin Sodium (Coumadin Per Physician) 1 each PRN DAILY PRN MC SEE COMMENTS Last administered on 03/25/17 09:32; Start 03/22/17 at 13:30 Cefazolin Sodium/ Dextrose 50 ml @ 100 mls/hr Q8H IV Last administered on 03/24 04:06; Start 03/22/17 at 20:00; Stop 03/24/17 at 04:01; Status DC Magnesium Sulfate/ Dextrose 50 ml @ 25 mls/hr 1X ONCE IV Last administered on 03/23/17 09:11; Start 03/23/17 at 09:00; Stop 03/23/17 at 10:59; Status DC Furosemide (Lasix) 40 mg 1X ONCE IVP ; Start 03/24/17 at 09:00; Stop 03/24/17 at 09:01; Status DC Sodium Chloride 500 ml @ 500 mls/hr 1X ONCE IV ; Start 03/24/17 at 11:00; Stop 03/24/17 at 19:09; Status DC Famotidine (Pepcid) 20 mg BID PO Last administered on 03/25/17t 10:36; Start at 10:00 Amiodarone HCl (Cordarone) 200 mg DAILY PO ; Start 03/26/17 at 09:00 Active Scripts Active Losartan Potassium 50 Mg Tablet 50 Mg PO DAILY Reported Multi-Day Vitamins (Multivitamin) 1 Each Tablet 1 Tab PO DAILY Glucosamine Complex-Msm Cap (Gluc Moss/Msm/Magnesium/Vit C) 1 Each Capsule 1 Each PO DAILY Metoprolol Tartrate 25 Mg Tablet 12.5 Mg PO BID Vitals/I & O Vital Sign - Last 24 Hours 03/24/17 03/24/17 03/24/17 03/24/17 16:00 16:00 17:00 20:00 Temp 98.0 97.6 98.0 97.6 Pulse 79 74 Resp 22 22 B/P (MAP) 110/71 (84) 115/77 (90) Pulse Ox 97 96 O2 Delivery Nasal Cannula Nasal Cannula Nasal Cannula Nasal Cannula O2 Flow Rate 3.0 3.0 3.0 2.0 03/24/17 03/24/17 03/24/17 03/24/17 20:04 20:57 20:58 23:09 Temp 98.3 99.1 98.3 99.1 Pulse 83 83 83 75 Resp 18 20 B/P (MAP) 107/68 (81) 107/68 107/68 91/60 (70) Pulse Ox 94 95 O2 Delivery Nasal Cannula Nasal Cannula O2 Flow Rate 2.0 3.0 03/25/17 03/25/17 03/25/17 03/25/17 03:01 08:00 08:10 09:17 Temp 98.0 99.7 98.0 99.7 Pulse 76 81 Resp 18 24 18 B/P (MAP) 113/75 (88) 107/68 (81) Pulse Ox 98 24 98 O2 Delivery Nasal Cannula Nasal Cannula Nasal Cannula Nasal Cannula O2 Flow Rate 2.0 2.0 3.0 3.0 03/25/17 03/25/17 03/25/17 03/25/17 09:36 10:17 10:33 12:30 Temp 97.9 97.9 Pulse 74 74 72 Resp 18 18 B/P (MAP) 107/68 107/68 92/58 (69) Pulse Ox 95 97 O2 Delivery Nasal Cannula Room Air O2 Flow Rate 3.0 03/25/17 14:39 Temp 97.8 97.8 Pulse 63 Resp 18 B/P (MAP) 94/41 (58) Pulse Ox 95 O2 Delivery Room Air Intake and Output 03/24/17 03/24/17 03/25/17 15:00 23:00 07:00 Intake Total 220 ml 600 ml Output Total 400 ml Balance 220 ml 200 ml MOHINDER ELLISON APRN Mar 25, 2017 15:53
[2017-03-25] MEDS ORDERED: BISACODYL 10 MG SUPP.RECT. PR PRN (16:00)
[2017-03-25] MEDS ORDERED: WARFARIN 0.5 MG TABLET. PO ONE (16:00)
[2017-03-25] MEDS ORDERED: ASPI325T8 PO (16:02)
[2017-03-25] MEDS ORDERED: METO25TA4 PO (16:02)
[2017-03-25] MEDS ORDERED: SENN-22 PO (16:02)
[2017-03-25] MEDS ORDERED: OXYC1TAB7 PO (16:02)
[2017-03-25] MEDS ORDERED: ONDANSETRON ODT 4 MG TAB.RAPDIS. PO PRN (16:15)
[2017-03-25 19:00] VITALS: BP 111/63
[2017-03-25 22:30] VITALS: BP 96/52
[2017-03-26 02:56] VITALS: BP 104/73
[2017-03-26 06:08] LABS: INR 2.2 (0.8-1.1); PROTHROMBIN TIME PATIENT 23.4 SEC (11.7-14.0)
[2017-03-26 07:47] VITALS: BP 130/76
[2017-03-26] MEDS: ASPIRIN 325 MG TABLET PO SCH (08:15)
[2017-03-26] MEDS: FAMOTIDINE 20 MG TABLET. PO SCH ×2 (08:15→21:15)
[2017-03-26] MEDS: SENNOSIDES/DOCUSATE 8.6/50MG TABLET. PO SCH ×2 (08:16→21:15)
[2017-03-26] MEDS: METOPROLOL TART IMMED RELEASE 25 MG TABLET. PO SCH ×2 (08:16→21:15)
[2017-03-26] MEDS: oxyCODONE/APAP 5/325 1 TAB TABLET PO PRN (08:18)
--- NOTE | 2017-03-26 08:57 | PDOC ---
Progress Note Subjective Subjective No issues. Doing very well INR 2.3 ROS ROS No nausea No vomiting No pain No rash Vital Sign Vital Signs Vital Signs Date Time Temp Pulse Resp B/P (MAP) Pulse Ox O2 Delivery O2 Flow Rate FiO2 03/26/17 08:18 18 96 Nasal Cannula 2.0 03/26/17 08:16 91 130/76 03/26/17 07:47 97.5 97.5 Physical Exam PHYSICAL EXAM GENERAL: NAD, Alert HEENT: PERRL, OC/OP NECK: Supple, no JVD, no LN LUNGS: Clear HEART: S1S2, no gallop, no murmur ABD: Soft, NT, no organomegaly, no rebound EXT: No edema, no cyanosis BLIND TEACHER: Alert, oriented x 3, no focal neurologic deficit SKIN: No rash IV: ok Labs Lab Laboratory Tests Test 03/26/17 04:30 Prothrombin Time 23.4 SEC (11.7-14.0) Prothromb Time International Ratio 2.2 (0.8-1.1) Objective Assessment POD#4, s/p [place] with mechanical valve. Doing very well. Had BM. INR 2.3 Plan Plan of Care 3mg Coumadin today Stop Amiodarone D/c home tomorrow BLAKE GUZMAN MD Mar 26, 2017 08:57
[2017-03-26] MEDS ORDERED: AMIODARONE HCL 200 MG TABLET. PO SCH (09:00)
[2017-03-26 11:00] VITALS: BP 98/60
--- NOTE | 2017-03-26 11:32 | PDOC ---
Provider Note Provider Note no new sxs, meds same warf/inr noted- will see in am, and office 03/29 ELINA MEIER MD Mar 26, 2017 11:32
[2017-03-26] MEDS ORDERED: ALBUMIN HUMAN 5% 12.5 G/250 ML VIAL. IV ONE (12:00)
[2017-03-26] MEDS ORDERED: PROPOFOL 10 MG/ML (100ML) VIAL. IV ONE (12:00)
[2017-03-26 15:17] VITALS: BP 116/72
[2017-03-26] MEDS ORDERED: WARFARIN 3 MG TABLET. PO SCH (16:00)
--- NOTE | 2017-03-26 16:08 | PDOC ---
PROGRESS NOTES Subjective Subjective No new complaints. He has been ambulating twice today without problems. Able to get around without 02 today Objective Objective Vital Signs Date Time Temp Pulse Resp B/P (MAP) Pulse Ox O2 Delivery O2 Flow Rate FiO2 03/26/17 15:17 98.0 85 20 116/72 (87) 95 Room Air 98.0 03/26/17 09:18 2.0 Intake and Output 03/26/17 07:00 Intake Total 520 ml Output Total 300 ml Balance 220 ml Intake Oral 520 ml Output Urine Total 300 ml # Voids 3 # Bowel Movements 1 Physical Exam Physical Exam No significant changes in cardiac exam Assessment Assessment Patient appears to be stable. May be able to be discharged tomorrow. Comment Review of Relevant I have reviewed the following items bettina (where applicable) has been applied. Labs Laboratory Tests Test 03/25/17 04:40 03/26/17 04:30 Prothrombin Time 25.0 SEC (11.7-14.0) 23.4 SEC (11.7-14.0) Prothromb Time International Ratio 2.4 (0.8-1.1) 2.2 (0.8-1.1) Laboratory Tests Test 03/26/17 04:30 Prothrombin Time 23.4 SEC (11.7-14.0) Prothromb Time International Ratio 2.2 (0.8-1.1) Medications Current Medications Potassium Chloride 70 meq/ Sodium Bicarbonate 12.5 meq/Lidocaine HCl 24 ml/ Parenteral Electrolytes 571.5 ml @ 571.5 mls/ hr 1X PERIOP ONCE IRR Last administered on 03/22/17 09:30; Start 03/22/17 at 06:00; Stop 03/22/17 at 06:59 ; Status DC Potassium Chloride 15 meq/ Sodium Bicarbonate 12.5 meq/Parenteral Electrolytes 520 ml @ 520 mls/hr 1X PERIOP ONCE IRR Last administered on 03/22/17 09:30; Start 03/22/17 at 06:00; Stop 03/22/17 at 06:59; Status DC Ondansetron HCl (Zofran) 4 mg PRN Q6HRS PRN IV NAUSEA/VOMITING; Start 03/22/17 at 07:00; Stop 03/22/17 at 18:00; Status DC Fentanyl Citrate (Fentanyl 2ml Vial) 25 mcg PRN Q5MIN PRN IV MILD PAIN; Start 03/22/17 at 07:00; Stop 03/22/17 at 18:00; Status DC Fentanyl Citrate (Fentanyl 2ml Vial) 50 mcg PRN Q5MIN PRN IV MODERATE PAIN; Start 03/22/17 at 07:00; Stop 03/22/17 at 18:00; Status DC Morphine Sulfate 1 mg PRN Q10MIN PRN IV SEVERE PAIN; Start 03/22/17 at 07:00; Stop 03/22/17 at 18:00; Status DC Ringer's Solution 1,000 ml @ 30 mls/hr Q24H IV Last administered on 03/22/17 06:59; Start 03/22/17 at 07:00; Stop 03/22/17 at 18:59; Status DC Lidocaine HCl 2 ml PRN 1X PRN ID PRIOR TO IV START Last administered on 07:02; Start 03/22/17 at 07:00; Stop 03/22/17 at 18:00; Status DC Hydromorphone HCl (Dilaudid) 0.5 mg PRN Q10MIN PRN IV SEV PAIN, Second choice; Start 03/22/17 at 07:00; Stop 03/22/17 at 18:00; Status DC Prochlorperazine Edisylate (Compazine) 5 mg PACU PRN PRN IV NAUSEA, MRX1; Start 03/22/17 at 07:00; Stop 03/22/17 at 18:00; Status DC Cefazolin Sodium/ Dextrose 50 ml @ 100 mls/hr 1X PREOP PRN IV Prior to Surgery Last administered on 03/22/17 12:00; Start 03/22/17 at 08:00; Stop at 06:57; Status DC Metoprolol Tartrate (Lopressor) 25 mg 1X ONCE PO ; Start 03/22/17 at 06:00; Stop 03/22/17 at 06:01; Status DC Cellulose 1 each STK-MED ONCE .ROUTE ; Start 03/22/17 at 07:04; Stop 03/22/17 at 07:05; Status DC Gelatin (Gelfoam Size 100) 1 each STK-MED ONCE .ROUTE ; Start 03/22/17 at 07:04 ; Stop 03/22/17 at 07:05; Status DC Mineral Oil (Muri-Lube) 10 ml STK-MED ONCE MC Last administered on 03/22/17t 11 :55; Start 03/22/17 at 07:04; Stop 03/22/17 at 07:05; Status DC Thrombin 20,000 unit STK-MED ONCE TP ; Start 03/22/17 at 07:04; Stop 03/22/17 at 07:05; Status DC Cellulose 1 each STK-MED ONCE .ROUTE ; Start 03/22/17 at 07:05; Stop 03/22/17 at 07:06; Status DC Nicardipine HCl 50 mg/Sodium Chloride 270 ml @ 27 mls/hr CONT PRN IV SEE I/O RECORD; Start 03/22/17 at 07:15; Stop 03/23/17 at 07:15; Status DC Midazolam HCl (Versed) 2 mg STK-MED ONCE .ROUTE ; Start 03/22/17 at 07:09; Stop 03/22/17 at 07:10; Status DC Rocuronium [place] (Zemuron) 100 mg STK-MED ONCE .ROUTE ; Start 03/22/17 at 07: 09; Stop 03/22/17 at 07:10; Status DC Sufentanil Citrate (Sufenta) 100 mcg STK-MED ONCE .ROUTE ; Start 03/22/17 at 07: 09; Stop 03/22/17 at 07:10; Status DC Aminocaproic Acid (Amicar) 5,000 mg STK-MED ONCE IV ; Start 03/22/17 at 07:10; Stop 03/22/17 at 07:11; Status DC Aminocaproic Acid (Amicar) 5,000 mg STK-MED ONCE IV ; Start 03/22/17 at 07:10; Stop 03/22/17 at 07:11; Status DC Aminocaproic Acid (Amicar) 5,000 mg STK-MED ONCE IV ; Start 03/22/17 at 07:10; Stop 03/22/17 at 07:11; Status DC Nitroglycerin/ Dextrose 250 ml @ As Directed STK-MED ONCE IV ; Start 03/22/17 at 07:10; Stop 03/22/17 at 07:11; Status DC Heparin Sodium (Porcine) (Heparin Sodium) 10,000 unit STK-MED ONCE .ROUTE ; Start 03/22/17 at 07:10; Stop 03/22/17 at 07:11; Status DC Heparin Sodium (Porcine) (Heparin Sodium) 10,000 unit STK-MED ONCE .ROUTE ; Start 03/22/17 at 07:10; Stop 03/22/17 at 07:11; Status DC Heparin Sodium (Porcine) (Heparin Sodium) 10,000 unit STK-MED ONCE .ROUTE ; Start 03/22/17 at 07:11; Stop 03/22/17 at 07:12; Status DC Heparin Sodium (Porcine) (Heparin Sodium) 10,000 unit STK-MED ONCE .ROUTE ; Start 03/22/17 at 07:11; Stop 03/22/17 at 07:12; Status DC Dexamethasone Sodium Phosphate (Decadron) 20 mg STK-MED ONCE .ROUTE ; Start at 07:11; Stop 03/22/17 at 07:12; Status DC Etomidate (Amidate) 20 mg STK-MED ONCE IV ; Start 03/22/17 at 07:11; Stop at 07:12; Status DC Isoflurane (Isoflurane) 90 ml STK-MED ONCE IH ; Start 03/22/17 at 07:11; Stop at 07:12; Status DC Ephedrine Sulfate 50 mg STK-MED ONCE IV ; Start 03/22/17 at 07:28; Stop at 07:29; Status DC Fentanyl Citrate (Fentanyl 2ml Vial) 100 mcg STK-MED ONCE .ROUTE ; Start at 07:41; Stop 03/22/17 at 07:42; Status DC Rocuronium [place] (Zemuron) 100 mg STK-MED ONCE .ROUTE ; Start 03/22/17 at 08: 48; Stop 03/22/17 at 08:49; Status DC Propofol 50 ml @ As Directed STK-MED ONCE IV ; Start 03/22/17 at 09:07; Stop at 09:08; Status DC Protamine Sulfate 50 mg STK-MED ONCE IV ; Start 03/22/17 at 09:17; Stop at 09:18; Status DC Protamine Sulfate 50 mg STK-MED ONCE IV ; Start 03/22/17 at 09:17; Stop at 09:18; Status DC Protamine Sulfate 50 mg STK-MED ONCE IV ; Start 03/22/17 at 09:17; Stop at 09:18; Status DC Protamine Sulfate 50 mg STK-MED ONCE IV ; Start 03/22/17 at 09:17; Stop at 09:18; Status DC Protamine Sulfate 50 mg STK-MED ONCE IV ; Start 03/22/17 at 09:17; Stop at 09:18; Status DC Protamine Sulfate 50 mg STK-MED ONCE IV ; Start 03/22/17 at 09:17; Stop at 09:18; Status DC Protamine Sulfate 50 mg STK-MED ONCE IV ; Start 03/22/17 at 09:20; Stop at 09:21; Status DC Protamine Sulfate 50 mg STK-MED ONCE IV ; Start 03/22/17 at 09:50; Stop at 09:51; Status DC Lidocaine HCl (Lidocaine Pf 2% Vial) 5 ml STK-MED ONCE .ROUTE ; Start 03/22/17 at 11:33; Stop 03/22/17 at 11:34; Status DC Lidocaine HCl (Lidocaine Pf 2% Vial) 5 ml STK-MED ONCE .ROUTE ; Start 03/22/17 at 11:33; Stop 03/22/17 at 11:34; Status DC Albumin Human 500 ml @ As Directed STK-MED ONCE IV ; Start 03/22/17 at 11:59; Stop 03/22/17 at 12:00; Status DC Clevidipine 100 ml @ 0 mls/hr CONT PRN IV PER PROTOCOL; Start 03/22/17 at 12:00 ; Stop 03/23/17 at 07:15; Status DC Lidocaine HCl (Lidocaine Pf 2% Vial) 5 ml STK-MED ONCE .ROUTE ; Start 03/22/17 at 12:08; Stop 03/22/17 at 12:09; Status DC Aminocaproic Acid (Amicar) 5,000 mg STK-MED ONCE IV ; Start 03/22/17 at 12:08; Stop 03/22/17 at 12:09; Status DC Mannitol (Mannitol) 12.5 g STK-MED ONCE .ROUTE ; Start 03/22/17 at 12:08; Stop 03/22/17 at 12:09; Status DC Calcium Chloride 1,000 mg STK-MED ONCE IV ; Start 03/22/17 at 12:08; Stop at 12:09; Status DC Albumin Human 100 ml @ As Directed STK-MED ONCE IV ; Start 03/22/17 at 12:08; Stop 03/22/17 at 12:09; Status DC Sodium Chloride (Normal Saline Flush) 3 ml PRN Q12HR PRN IV AFTER MEDS AND BLOOD DRAWS; Start 03/22/17 at 12:30 Ringer's Solution 1,000 ml @ 30 mls/hr Q24H IV Last administered on 03/23/17 05:16; Start 03/22/17 at 12:21; Stop 03/23/17 at 07:15; Status DC Albumin Human 250 ml @ 60 mls/hr PRN Q4HRS PRN IV SEE I/O RECORD Last administered on 03/22/17 19:10; Start 03/22/17 at 13:05; Stop 03/23/17 at 08:08 ; Status DC Insulin Human Regular 150 unit/ Sodium Chloride 151.5 ml @ 0 mls/hr CONT PRN PRN IV SEE I/O RECORD Last administered on 03/22/17 19:10; Start 03/22/17 at 12 :30; Stop 03/24/17 at 19:09; Status DC Dextrose (Dextrose 50%-Water Syringe) 25 gm PRN Q15MIN PRN IV LOW BLOOD SUGAR; Start 03/22/17 at 12:30; Stop 03/24/17 at 19:09; Status DC Info 1 ea CONT PRN PRN MC SEE COMMENTS; Start 03/22/17 at 12:30; Stop 03/24/17 at 19:09; Status DC Info 1 ea CONT PRN PRN MC SEE COMMENTS; Start 03/22/17 at 12:30; Stop 03/24/17 at 19:09; Status DC Magnesium Sulfate/ Dextrose 100 ml @ 100 mls/hr PRN DAILY PRN IV FOR MAG < 2.2 ; Start 03/22/17 at 12:30; Status Cancel Famotidine (Pepcid) 20 mg BID IVP Last administered on 03/24/17 20:57; Start 03/22/17 at 21:00; Stop 03/25/17 at 09:33; Status DC Ondansetron HCl (Zofran) 4 mg PRN Q4HRS PRN IV NAUSEA/VOMITING Last administered on 03/24/17 08:16; Start 03/22/17 at 12:30; Stop 03/25/17 at 16:02 ; Status DC Morphine Sulfate 2 mg PRN Q1HR PRN IV PAIN Last administered on 03/23/17 11:30 ; Start 03/22/17 at 12:30; Stop 03/24/17 at 19:09; Status DC Acetaminophen (Tylenol) 650 mg PRN Q4HRS PRN PO MILD PAIN / TEMP; Start at 12:30 Acetaminophen (Acetaminophen Supp) 650 mg PRN Q4HRS PRN FL MILD PAIN / TEMP; Start 03/22/17 at 12:30; Stop 03/25/17 at 11:46; Status DC Meperidine HCl (Demerol) 12.5 mg PRN Q15MIN PRN IV SHIVERING; Start 03/22/17 at 12:30; Stop 03/23/17 at 07:15; Status DC Propofol 100 ml @ 0 mls/hr CONT PRN PRN IV POSTOP SEDATION UNTIL EXTUBATE Last administered on 03/22/17 16:51; Start 03/22/17 at 12:30; Stop 03/23/17 at 07:15 ; Status DC Senna/Docusate Sodium (Senna Plus) 1 tab BID PO Last administered on 03/26/17 08:16; Start 03/22/17 at 21:00 Bisacodyl (Dulcolax Supp) 10 mg PRN DAILY PRN FL NO BOWEL MOVEMENT; Start 03/22 at 12:30; Stop 03/26/17 at 09:13; Status DC Albuterol Sulfate (Ventolin Neb Soln) 2.5 mg PRN Q4HRS PRN NEB SHORTNESS OF BREATH; Start 03/22/17 at 12:30 Metoprolol Tartrate (Lopressor) 25 mg BID PO Last administered on 03/26/17 08: 16; Start 03/23/17 at 09:00; Status Future hold Oxycodone/ Acetaminophen (Percocet 5/325) 1 tab PRN Q4HRS PRN PO MILD PAIN Last administered on 03/26/17 08:18; Start 03/22/17 at 12:30 Oxycodone/ Acetaminophen (Percocet 5/325) 2 tab PRN Q4HRS PRN PO MODERATE PAIN , SEVERE PAIN Last administered on 03/25/17 09:17; Start 03/22/17 at 12:30 Cefazolin Sodium/ Dextrose 50 ml @ 100 mls/hr Q8H IV ; Start 03/22/17 at 14:30 ; Stop 03/22/17 at 14:30; Status DC Aspirin (Albert Aspirin) 325 mg DAILYWBKFT PO Last administered on 03/26/17 08: 15; Start 03/23/17 at 08:00 Aspirin (Aspirin) 300 mg DAILY FL ; Start 03/23/17 at 09:00; Stop 03/23/17 at 09 :00; Status DC Amiodarone HCl (Cordarone) 400 mg BID PO Last administered on 03/25/17 10:33; Start 03/22/17 at 21:00; Stop 03/25/17 at 14:14; Status DC Warfarin Sodium (Coumadin) 5 mg DAILY16 PO Last administered on 03/24/17 16:33 ; Start 03/22/17 at 16:00; Stop 03/25/17 at 15:55; Status DC Warfarin Sodium (Coumadin Per Physician) 1 each PRN DAILY PRN MC SEE COMMENTS Last administered on 03/26/17 09:12; Start 03/22/17 at 13:30 Cefazolin Sodium/ Dextrose 50 ml @ 100 mls/hr Q8H IV Last administered on 03/24 04:06; Start 03/22/17 at 20:00; Stop 03/24/17 at 04:01; Status DC Magnesium Sulfate/ Dextrose 50 ml @ 25 mls/hr 1X ONCE IV Last administered on 03/23/17 09:11; Start 03/23/17 at 09:00; Stop 03/23/17 at 10:59; Status DC Furosemide (Lasix) 40 mg 1X ONCE IVP ; Start 03/24/17 at 09:00; Stop 03/24/17 at 09:01; Status DC Sodium Chloride 500 ml @ 500 mls/hr 1X ONCE IV ; Start 03/24/17 at 11:00; Stop 03/24/17 at 19:09; Status DC Famotidine (Pepcid) 20 mg BID PO Last administered on 03/26/17 08:15; Start at 10:00 Amiodarone HCl (Cordarone) 200 mg DAILY PO Last administered on 03/26/17 08:16 ; Start 03/26/17 at 09:00; Stop 03/26/17 at 14:24; Status DC Warfarin Sodium (Coumadin) 0.5 mg 1X ONCE PO Last administered on 03/25/17 18 :20; Start 03/25/17 at 16:00; Stop 03/25/17 at 16:01; Status DC Bisacodyl (Dulcolax Supp) 10 mg PRN DAILY PRN FL CONSTIPATION Last administered on 03/25/17 16:13; Start 03/25/17 at 16:00 Ondansetron HCl (Zofran Odt) 4 mg PRN Q6HRS PRN PO NAUSEA/VOMITING Last administered on 03/25/17 16:12; Start 03/25/17 at 16:15 Warfarin Sodium (Coumadin) 3 mg DAILY16 PO ; Start 03/26/17 at 16:00 Active Scripts Active Senna-Time S Tablet (Sennosides/Docusate Sodium) 1 Each Tablet 1 Tab PO BID 30 Days sig: one tab twice daily; hold for diarrhea; may stop when pain pills are no longer needed Oxycodone-Acetaminophen 5-325 (Oxycodone Hcl/Acetaminophen) 1 Each Tablet 2 Tab PO PRN Q4HRS PRN SIG: ONE OR TWO TABS EVERY 4 - 6 HOURS NEEDED FOR INCISIONAL PAIN Metoprolol Tartrate 25 Mg Tablet 25 Mg PO BID 30 Days Aspirin 325 Mg Tablet 325 Mg PO DAILYWBKFT 30 Days Losartan Potassium 50 Mg Tablet 50 Mg PO DAILY Reported Multi-Day Vitamins (Multivitamin) 1 Each Tablet 1 Tab PO DAILY Glucosamine Complex-Msm Cap (Gluc Moss/Msm/Magnesium/Vit C) 1 Each Capsule 1 Each PO DAILY Metoprolol Tartrate 25 Mg Tablet 12.5 Mg PO BID Vitals/I & O Vital Sign - Last 24 Hours 03/25/17 03/25/17 03/25/17 03/25/17 19:00 19:47 21:00 22:30 Temp 98.0 98.0 98.0 98.0 Pulse 78 76 Resp 22 24 B/P (MAP) 111/63 (79) 96/52 96/52 (67) Pulse Ox 92 92 O2 Delivery Nasal Cannula Nasal Cannula Nasal Cannula O2 Flow Rate 3.0 3.0 3.0 03/26/17 03/26/17 03/26/17 03/26/17 02:56 07:47 08:10 08:16 Temp 97.4 97.5 97.4 97.5 Pulse 83 91 91 Resp 22 20 B/P (MAP) 104/73 (83) 130/76 (94) 130/76 Pulse Ox 95 96 O2 Delivery Room Air Room Air Nasal Cannula O2 Flow Rate 3.0 2.0 03/26/17 03/26/17 03/26/17 03/26/17 08:16 08:18 09:18 11:00 Temp 98.7 98.7 Pulse 91 72 Resp 18 18 18 B/P (MAP) 130/76 98/60 (73) Pulse Ox 96 96 94 O2 Delivery Nasal Cannula Nasal Cannula Room Air O2 Flow Rate 2.0 2.0 03/26/17 15:17 Temp 98.0 98.0 Pulse 85 Resp 20 B/P (MAP) 116/72 (87) Pulse Ox 95 O2 Delivery Room Air Intake and Output 03/25/17 03/25/17 03/26/17 15:00 23:00 07:00 Intake Total 220 ml 300 ml Output Total 300 ml Balance -80 ml 300 ml FAUSTINO PARK MD Mar 26, 2017 16:08
[2017-03-26 19:30] VITALS: BP 108/65
[2017-03-26 22:52] VITALS: BP 91/50
[2017-03-27 03:15] VITALS: BP 119/73
[2017-03-27 05:54] LABS: INR 1.8 (0.8-1.1); PROTHROMBIN TIME PATIENT 19.9 SEC (11.7-14.0)
[2017-03-27 06:33] VITALS: BP 116/70
[2017-03-27 08:51] VITALS: BP 116/70
[2017-03-27] MEDS: METOPROLOL TART IMMED RELEASE 25 MG TABLET. PO SCH (08:51)
[2017-03-27] MEDS: ASPIRIN 325 MG TABLET PO SCH (08:52)
[2017-03-27] MEDS: SENNOSIDES/DOCUSATE 8.6/50MG TABLET. PO SCH (09:00)
[2017-03-27] MEDS: FAMOTIDINE 20 MG TABLET. PO SCH (09:00)
--- NOTE | 2017-03-27 09:20 | PDOC ---
Provider Note Provider Note Pt doing well SR VSS wound sites ok INR 1.8 today will d/c home today on 5 mg daily INR tuesday with Dr. Aquino needs ASA in addition to the coumadin for a mechanical aortic valve SIMIN ASTUDILLO MD Mar 27, 2017 09:20
--- NOTE | 2017-03-27 11:51 | OP ---
DATE OF SURGERY: 03/22/2017 PREOPERATIVE DIAGNOSES: 1. Aortic root aneurysm. 2. Bicuspid aortic valve. FINAL DIAGNOSES: 1. Aortic root aneurysm. 2. Bicuspid aortic valve. OPERATIVE PROCEDURE PERFORMED: 1. Aortic root replacement with 29 mm mechanical valve conduit, utilizing Bental technique. 2. Left femoral artery exploration. SURGEON: Dr. Christian Guerra. PRODUCTION WELDER: ____. ANESTHESIA: General. OPERATIVE INDICATIONS: The patient is a pleasant 56-year-old male, who has been followed for cardiac murmur. He has also had associated aortic root aneurysm. His aneurysm is now measured 5.3 cm. The valve with a known bicuspid valve with the aneurysm sizing conjunction with a bicuspid valve was felt appropriate to proceed with aortic aneurysm repair at this time. The aneurysm extended down in to the aortic root and would require root replacement technique. OPERATIVE SUMMARY: The patient brought to the operative room and placed on the OR table in supine position. After anesthesia was induced via the general endotracheal route and monitoring lines have been positioned, the patient was prepped and draped in sterile fashion with chlorhexidine. A median sternotomy incision was made, the pericardium was opened. The aneurysm was identified. It tapered in the distal ascending aorta and therefore, it was felt to be appropriate for utilizing a cross clamp proximal to the innominate artery and thus avoiding circulatory arrest. We then made an oblique incision in the right groin and dissected down to identify the common profunda and superficial femoral arteries. We then gave this is a large systemic dose of heparin. The arterial cannula was placed in the left common femoral artery. We then placed a venous cannula in the right atrium. An antegrade cardioplegic cannula was positioned in the ascending aorta. Cardiopulmonary bypass was begun. A retrograde cardioplegic cannula was positioned. Then, under low flow conditions, the aorta was crossclamped. The heart was arrested with cold antegrade cardioplegia approximately 1 liter followed by cold retrograde cardioplegia approximately 500 mL. This was augmented with topical ice slush. Diastolic arrest was achieved and maintained throughout this operation with intermittent doses of retrograde as well as antegrade cardioplegia and topical ice slush. We first incised into the aneurysm. We amputated the aorta distally just proximal to the cross clamp. We then removed the midsection of the aorta and then down towards the aortic root. We took care to dissect out the left coronary button and the right coronary button. The valve was bicuspid, but was not heavily calcified. The valve was suspended by the 3 commissures and the leaflet was excised. We sized the valve and felt that a 29 mm valve conduit would be appropriate. We then placed pledgeted 2-0 Ethibond sutures from the aortic to the ventricular side of the annulus. ____ sutures were then brought up through the sewing rim of the valve conduit. The conduit was seated and the sutures were securely tied. We reinforced this suture line with BioGlue. Next, we made a graftotomy in the valve conduit posteriorly and we sewed the left coronary button into place with 5-0 Prolene and reinforced with BioGlue. We then cut the main shaft of the graft to the appropriate length and performed our distal anastomosis to the distal ascending aorta. This was done with 4-0 Prolene. Next, we replaced the aortic root vent, securing to the graft with a 4-0 Prolene. Lastly, we performed another graftotomy again with the eye cautery and performed anastomosis of the right coronary button to the valve conduit. This last anastomosis was reinforced with BioGlue as well. We then placed the patient in steep Trendelenburg and we gave warm cardioplegia both retrograde and deaired the heart and the left ventricular apex with an 18 gauge needle while holding blood into the heart and ventilating the lungs. The retrograde cannula was removed. We then gave antegrade cardioplegia and performed a similar de-airing maneuvers through the left ventricular apex. Then, under low flow conditions, the aorta crossclamp was released and again de-airing procedures were carried out. The patient was placed back in the supine position. Atrial and ventricular pacing wires were placed. The patient was rewarmed to 37 degree centigrade and 3 successive doses of calcium and a single dose of 2 grams of magnesium was given over 3-5 minute intervals. Sinus rhythm, resumed after a single episode of defibrillation. Once satisfactory contractility was reestablished. The patient was weaned from cardiopulmonary bypass without inotropic support. Protamine was given to reverse the heparin. Decannulation was effected. Once satisfactory hemostasis was achieved, we placed two 32-Mongolian chest tubes anterior mediastinal and bring them out through separate stab incisions. The sternum was closed with #7 wire. The fascia, subcutaneous, and skin were closed in multiple layers with absorbable suture. The femoral artery cannula was removed and the artery was flushed both retrograde and antegrade. We closed the femoral aortotomy with 5-0 Prolene and this wound was closed in multiple layers with absorbable suture. The procedure completed, the patient was taken to the surgical ICU in stable condition. Cardiopulmonary bypass time was 142 minutes. Cross clamp time 115 minutes. CHRISTIAN GUERRA MD DR: ANAYELI/olivia JOB#: [id number] / [id number] ELINA Mohr MD, HECTOR MD
--- NOTE | 2017-03-28 09:32 | PDOC3 ---
Discharge Summary* Date of Admission: Mar 22, 2017 Date of Discharge: Mar 27, 2017 Admitting Diagnosis 1. ascending aortic aneurysm 2. bicuspid aortic valve 3. hypertension 4. obesity Problems: Final Diagnosis 1. ascending aortic aneurysm, s/p aortic root replacement 2. Left femoral artery exploration. 2. bicuspid aortic valve; S/P mechanical aortic valve 3. hypertension 4. obesity 5. acute blood loss anemia (post-operative, expectant) CONSULTS 1. Cardiology - Dr. Zheng Scott 2. PCP - Dr. Tashi Aquino Procedures 1. Aortic root replacement with 29 mm mechanical valve conduit, utilizing Bental technique. 2. Left femoral artery exploration 3. Intra-operative LYNN Brief Hospital Course Mr. Higgins is a 56 old male with a history of murmur and diagnosed with a bicuspid aortic valve, dilated aortic root and ascending aortic aneurysm of 5.3 cm. LHC demonstrated no significant coronary disease and LYNN demonstrated preserved LV function with a mildly dilated LA, no significant AR with trace AI and bicuspid aortic valvve leaflets. Surgery was advised and he elected to proceed. He underwent aortic root replacement with 29 mm mechanical valve conduit, utilizing Bental technique on 03/22/2017 with left femoral artery exploration. See operative report for details. Fast track extubation completed. Anticoagulation therapy with warfarin was started in the evening of the day of surgery. Post-operative course uncomplicated and no cardiac dysrhythmias noted on telemetry. Ambulation progressively increased. Discharged with warfarin 5 mg daily and to have INR with PCP on 03/29/2017. Disposition/Orders: D/C to Home CONDITION AT DISCHARGE: Stable Scheduled Aspirin (Aspirin), 325 MG PO DAILYWBKFT Metoprolol Tartrate (Metoprolol Tartrate), 25 MG PO BID Sennosides/Docusate Sodium (Senna-Time S Tablet), 1 TAB PO BID Scheduled PRN Oxycodone Hcl/Acetaminophen (Oxycodone-Acetaminophen 5-325), 2 TAB PO PRN Q4HRS PRN for MODERATE PAIN, SEVERE PAIN Discontinued Medications Gluc Moss/Msm/Magnesium/Vit C (Glucosamine Complex-Msm Cap), 1 EACH PO DAILY, ( Reported) Losartan Potassium (Losartan Potassium), 50 MG PO DAILY Metoprolol Tartrate (Metoprolol Tartrate), 12.5 MG PO BID, (Reported) Multivitamin (Multi-Day Vitamins), 1 TAB PO DAILY, (Reported) FOLLOW UP APPOINTMENT: 1. Cardiac Surgery - Dr. Edward Guerra; 04/13/2017 @ 0900; [address]; [address]; [facility]; [place], [place]; [phone] 2. Cardiology - Dr. Zheng Scott - 2 - [address] Tashi Aquino with INR as scheduled 03/29/2107 Time Spent Total time spent with patient 35 minutes for coordination of care, counseling, and education. MOHINDER ELLISON APRN Mar 28, 2017 09:32
== END 2017-03-27 11:50 | disposition home or self-care (01) | DRG 220 ==
LOC: OPSVCIP 05:56 → 1 WEST ICU 12:42 → 2 SOUTH 03-24 17:15
PROVIDERS: ADMIT Thoracic Surgery (Cardiothoracic Vascular Surgery); ATTEND Thoracic Surgery (Cardiothoracic Vascular Surgery)
PROC: 04JY0ZZ Inspection of Lower Artery, Open Approach (ICD-10-PCS; 2017-03-22)
PROC: B24BZZ4 Ultrasonography of Heart with Aorta, Transesophageal (ICD-10-PCS; 2017-03-22)
PROC: 3E083GC Introduction of Other Therapeutic Substance into Heart, Percutaneous Approach (ICD-10-PCS; 2017-03-22)
PROC: 5A1221Z Performance of Cardiac Output, Continuous (ICD-10-PCS; 2017-03-22)
PROC: 02RF0JZ Replacement of Aortic Valve with Synthetic Substitute, Open Approach (ICD-10-PCS; principal; 2017-03-22 08:00)
DX: I71.2 Thoracic aortic aneurysm, without rupture (principal); Q23.1 Congenital insufficiency of aortic valve; D62 Acute posthemorrhagic anemia; I10 Essential (primary) hypertension; Z95.2 Presence of prosthetic heart valve; E66.9 Obesity, unspecified; Z68.34 Body mass index [BMI] 34.0-34.9, adult
CPT/HCPCS: 36415; 36600; 71010; 80048; 82803; 82805; 82962; 83735; 84132; 85027; 85347; 85384; 85610; 85730; 86850; 86900; 86901; 86920; 88304; 88305; 88311; 93005; 93312; 93325; 94002; C1757; C1769; C1781; J0690; J1100; J1644; J1815; J2001; J2150; J2250; J2270; J2405; J2704; J3010; J3490; J7060; J7120; P9041; P9045; P9046; Q0162; S0028

== ENCOUNTER 2017-10-15 10:23 | Inpatient (IN) | payer OTHER ==
[2017-10-15] MEDS: MORPHINE SULFATE 10 MG/ML VIAL. IV (12:24)
[2017-10-15] MEDS: HYDROmorphone 2 MG/ML VIAL IV/SQ (13:37)
[2017-10-15] MEDS ORDERED: MORPHINE SULFATE 2 MG/ML DISP.SYRIN. IV (14:00)
[2017-10-15] MEDS ORDERED: fentaNYL PF VIAL 100 MCG/2 ML VIAL IV (14:00)
[2017-10-15] MEDS: ONDANSETRON PF 4 MG/2 ML VIAL. IV (14:02)
[2017-10-15 14:27] LABS: ADD MAN DIFF? NO
[2017-10-15 14:31] LABS: BASO # 0.1 x10^3/uL (0.0-0.2); BASO % 0 % (0-3); EOS % 0 % (0-3); HEMATOCRIT 41.5 % (39.0-53.0); HEMOGLOBIN 13.8 g/dL (13.0-17.5); LYMPH # 1.9 x10^3/uL (1.0-4.8); LYMPH % 17 % (24-48); MEAN CORPUSCULAR HEMOGLOBIN 31 pg (25-35); MEAN CORPUSCULAR HGB CONC 33 g/dL (31-37); MEAN CORPUSCULAR VOLUME 94 fL (79-100); MONO # 0.5 x10^3/uL (0.0-1.1); MONO % 5 % (0-9); NEUT % 78 % (31-73); PLATELET COUNT 191 x10^3/uL (140-400); RED BLOOD COUNT 4.42 x10^6/uL (4.30-5.70); RED CELL DISTRIBUTION WIDTH 14.2 % (11.5-14.5); WHITE BLOOD COUNT 11.6 x10^3/uL (4.0-11.0)
[2017-10-15 14:44] LABS: INR 2.1 (0.8-1.1); PARTIAL THROMBOPLASTIN TIME 28 SEC (24-38); PROTHROMBIN TIME PATIENT 22.4 SEC (11.7-14.0)
[2017-10-15] MEDS ORDERED: CONTRAST GIVEN MC (14:45)
[2017-10-15 14:48] LABS: ALBUMIN 3.5 g/dL (3.4-5.0); ALBUMIN/GLOBULIN RATIO 0.9 (1.0-1.7); ALK PHOS 70 U/L (46-116); ALT (SGPT) 30 U/L (16-63); ANION GAP 11 (6-14); AST (SGOT) 35 U/L (15-37); BLOOD UREA NITROGEN 18 mg/dL (8-26); BUN/CREATININE RATIO 23 (6-20); CALCIUM 8.8 mg/dL (8.5-10.1); CARBON DIOXIDE 26 mmol/L (21-32); CHLORIDE 103 mmol/L (98-107); CREATININE 0.8 mg/dL (0.7-1.3); GFR 100.4; GLUCOSE 154 mg/dL (70-99); POTASSIUM 4.1 mmol/L (3.5-5.1); SODIUM 140 mmol/L (136-145); TOTAL BILIRUBIN 0.2 mg/dL (0.2-1.0); TOTAL PROTEIN 7.4 g/dL (6.4-8.2)
[2017-10-15] MEDS: IOHEXOL 300 MG/ML 100ML VIAL. IV (15:00)
[2017-10-15] MEDS ORDERED: ANTI-COAG MONITOR BY PHARMACY. MC (19:45)
[2017-10-15] MEDS: SENNOSIDES/DOCUSATE 8.6/50MG TABLET. PO (20:22)
[2017-10-15] MEDS: METOPROLOL TART IMMED RELEASE 25 MG TABLET. PO (20:23)
[2017-10-15] MEDS: oxyCODONE/APAP 5/325 1 TAB TABLET PO (20:23)
[2017-10-16 05:02] LABS: ADD MAN DIFF? NO
[2017-10-16] MEDS: oxyCODONE/APAP 5/325 1 TAB TABLET PO (05:31)
[2017-10-16 05:39] LABS: BASO % 0 % (0-3); EOS # 0.1 x10^3/uL (0.0-0.7); EOS % 1 % (0-3); HEMATOCRIT 36.6 % (39.0-53.0); HEMOGLOBIN 12.5 g/dL (13.0-17.5); LYMPH # 2.5 x10^3/uL (1.0-4.8); LYMPH % 29 % (24-48); MEAN CORPUSCULAR HEMOGLOBIN 32 pg (25-35); MEAN CORPUSCULAR HGB CONC 34 g/dL (31-37); MEAN CORPUSCULAR VOLUME 95 fL (79-100); MONO % 12 % (0-9); NEUT % 58 % (31-73); PLATELET COUNT 166 x10^3/uL (140-400); RED BLOOD COUNT 3.88 x10^6/uL (4.30-5.70); RED CELL DISTRIBUTION WIDTH 14.6 % (11.5-14.5); WHITE BLOOD COUNT 8.7 x10^3/uL (4.0-11.0)
[2017-10-16 05:56] LABS: ANION GAP 7 (6-14); BLOOD UREA NITROGEN 17 mg/dL (8-26); CALCIUM 8.2 mg/dL (8.5-10.1); CARBON DIOXIDE 30 mmol/L (21-32); CHLORIDE 104 mmol/L (98-107); CREATININE 0.9 mg/dL (0.7-1.3); GFR 87.6; GLUCOSE 90 mg/dL (70-99); POTASSIUM 3.9 mmol/L (3.5-5.1); SODIUM 141 mmol/L (136-145)
[2017-10-16] MEDS: SENNOSIDES/DOCUSATE 8.6/50MG TABLET. PO (09:12)
[2017-10-16] MEDS: METOPROLOL TART IMMED RELEASE 25 MG TABLET. PO (09:12)
[2017-10-16] MEDS: ASPIRIN 325 MG TABLET PO (09:12)
[2017-10-16] MEDS: HYDROcodone/APAP 5/325MG 1 TAB TABLET PO (12:55)
[2017-10-16] MEDS ORDERED: WARFARIN 6 MG TABLET. PO (16:00)
[2017-10-16] MEDS ORDERED: WARFARIN 5 MG TABLET. PO (16:00)
== END 2017-10-16 14:30 | disposition home or self-care (01) | DRG 538 ==
LOC: ER 10:23 → 4 NORTH 13:50
DX: S76.311A Strain of muscle, fascia and tendon of the posterior muscle group at thigh level, right thigh, initial encounter (principal); I10 Essential (primary) hypertension; Z79.01 Long term (current) use of anticoagulants; Z82.49 Family history of ischemic heart disease and other diseases of the circulatory system; Z95.2 Presence of prosthetic heart valve; W30.89XA Contact with other specified agricultural machinery, initial encounter; Y93.39 Activity, other involving climbing, rappelling and jumping off; Y92.89 Other specified places as the place of occurrence of the external cause; Y99.8 Other external cause status
CPT/HCPCS: 29505; 36415; 73552; 73562; 73701; 80048; 80053; 85025; 85610; 85730; 96374; 96375; 97161-GP; 99285-25; J1170; J1650; J2270; J2405; Q9967

== ENCOUNTER 2021-05-27 17:44 | Emergency (ER) | payer OTHER ==
[2017-10-16 11:00] VITALS: BP 106/64
[~2021-05-27 17:44] MED LIST changes: +ASPI325T8 PO; +CYCL10TA2 PO; +HYDR-2761 PO; +LOSA-73 PO; -LOSA50TA6 PO; +OXYC1TAB7 PO; +SENN-22 PO
== END 2021-05-27 21:15 | disposition left against medical advice (07) ==
LOC: ER 17:44
DX: U07.1 COVID-19 (principal); Z53.21 Procedure and treatment not carried out due to patient leaving prior to being seen by health care provider